=== PATIENT | male | born 1930 | race Caucasian/White ===

== ENCOUNTER → 2016-08-25 | Outpatient (CLI) | payer MEDICARE ==
--- NOTE | 2016-08-25 12:17 | US ---
EXAMINATION TYPE: US venous doppler duplex LE RT DATE OF EXAM: 08/25/2016 12:02 PM COMPARISON: NONE CLINICAL HISTORY: 86-year-old male M79.661 PAIN IN LOWER LIMB,R22.41 SWELLING. Pain and leg swelling, ongoing swelling, already on blood thinners for atrial fibrillation, no history of DVT. SIDE PERFORMED: Right TECHNIQUE: The lower extremity deep venous system is examined utilizing real time linear array sonog dusty with graded compression, doppler sonography and color-flow sonography. FINDINGS: VESSELS IMAGED: External Iliac Vein (EIV) Common Femoral Vein Deep Femoral Vein Greater Saphenous Vein * Femoral Vein Popliteal Vein Small Saphenous Vein * Proximal Calf Veins Posterior tibial veins (* superficial vessels) Right Leg: Appears negative for DVT *tech impression to Lilly at office @ 1205 IMPRESSION: No evidence for DVT within the right lower extremity.
== END | disposition home or self-care (01) ==
LOC: RADUSWWP 11:41
PROVIDERS: ATTEND Internal Medicine
DX: M79.661 Pain in right lower leg (principal); R22.41 Localized swelling, mass and lump, right lower limb

== ENCOUNTER 2018-02-10 07:49 | Inpatient (IN) | payer MEDICARE ==
[2018-02-10] MEDS ORDERED: ASPIRIN 81 MG PO STA (08:09)
[2018-02-10] MEDS ORDERED: NITROGLYCERIN OINT 1 INCH/GM PACKET TOPICAL STA (08:09)
--- NOTE | 2018-02-10 08:13 | ED ---
General Adult HPI - General Chief complaint: Chest Pain Stated complaint: chest pain Time Seen by Provider: 02/10/18 07:59 Source: patient, family, RN notes reviewed Mode of arrival: wheelchair Limitations: no limitations - History of Present Illness Initial comments: Patient is a pleasant 87-year-old male presenting to the emergency department with family with chest discomfort complaints. Patient did have an episode 4 days ago. Patient did have symptoms twice the middle the night. Patient had chest discomfort associated with belching. No associated dyspnea. Patient does have a history of similar symptoms twice previously associated with cardiac problems. Once patient needed stent placement and another time patient needed bypass. Patient is extremely hard of hearing and is a poor historian. - Related Data Home Medications Medication Instructions Recorded Confirmed Albuterol Nebulized [Ventolin 1 vial INHALATION RT-Q6H PRN 02/10/18 02/10/18 Nebulized] Allopurinol [Zyloprim] 300 mg PO Q48H 02/10/18 02/10/18 Atorvastatin [Lipitor] 40 mg PO DAILY 02/10/18 02/10/18 Cholecalciferol (Vitamin D3) 2,000 unit PO DAILY 02/10/18 02/10/18 [Vitamin D3] Clopidogrel [Plavix] 75 mg PO DAILY 02/10/18 02/10/18 Furosemide [Lasix] 20 mg PO Q48H 02/10/18 02/10/18 Levothyroxine Sodium [Synthroid] 25 mcg PO DAILY 02/10/18 02/10/18 Multivitamin,Therapeutic [Thera] 1 tab PO DAILY 02/10/18 02/10/18 glipiZIDE [Glucotrol] 5 mg PO TID 02/10/18 02/10/18 predniSONE 5 mg PO DAILY 02/10/18 02/10/18 Allergies Allergy/AdvReac Type Severity Reaction Status Date / Time shellfish derived [Shrimp] AdvReac Nausea & Verified 02/10/18 08:25 Vomiting Review of Systems ROS Statement: Those systems with pertinent positive or pertinent negative responses have been documented in the HPI. ROS Other: All systems not noted in ROS Statement are negative. Constitutional: Denies: fever Eyes: Denies: eye pain ENT: Denies: ear pain Respiratory: Denies: dyspnea Cardiovascular: Reports: chest pain Endocrine: Denies: fatigue Gastrointestinal: Denies: vomiting Genitourinary: Denies: dysuria Musculoskeletal: Denies: back pain Skin: Denies: rash Neurological: Denies: weakness Past Medical History Past Medical History: Diabetes Mellitus, Hypertension Additional Past Medical History / Comment(s): type 2 DM, cardiac issues, gout, 3rd stage renal failure, pancreatitis History of Any Multi-Drug Resistant Organisms: None Reported Past Surgical History: Cholecystectomy, Coronary Bypass/CABG Additional Past Surgical History / Comment(s): 2008 coronary bypass Past Psychological History: No Psychological Hx Reported Smoking Status: Never smoker Past Alcohol Use History: Rare Past Drug Use History: None Reported General Exam Limitations: no limitations General appearance: alert, in no apparent distress Head exam: Present: atraumatic Eye exam: Present: normal appearance Neck exam: Present: normal inspection Respiratory exam: Present: normal lung sounds bilaterally. Absent: chest wall tenderness Cardiovascular Exam: Present: regular rate, normal rhythm Expanded Peripheral pulses: 2+: Radial (R), Radial (L), Posterior Tibialis (R), Posterior Tibialis (L) GI/Abdominal exam: Present: soft. Absent: tenderness Extremities exam: Present: normal inspection. Absent: pedal edema, calf tenderness Neurological exam: Present: alert Psychiatric exam: Present: normal affect, normal mood Skin exam: Present: normal color Course Vital Signs 02/10/18 07:52 Temperature 97.4 F L Pulse Rate 86 Respiratory 18 Rate Blood Pressure 151/75 O2 Sat by Pulse 95 Oximetry EKG Findings - EKG Comments: EKG Findings:: Normal sinus rhythm 77. For screening AV block ID of 204. QRS 88. QT 380. QTC 43. Normal axis. Normal QRS. No acute ST change. Medical Decision Making - Medical Decision Making Patient reevaluated and resting comfortably in bed. Patient and family updated. Case discussed in detail with Dr. Cruz, who will admit covering for Dr. Martinez. - Lab Data Result diagrams: 02/10/18 08:35 02/10/18 08:35 Lab Results 02/10/18 02/10/18 02/10/18 Range/Units 08:35 08:35 08:35 WBC 8.5 (3.8-10.6) k/uL RBC 4.26 L (4.30-5.90) m/uL Hgb 13.3 (13.0-17.5) gm/dL Hct 40.1 (39.0-53.0) % MCV 94.2 (80.0-100.0) fL MCH 31.1 (25.0-35.0) pg MCHC 33.1 (31.0-37.0) g/dL RDW 14.9 (11.5-15.5) % Plt Count 211 (150-450) k/uL Neutrophils % 84 % Lymphocytes % 9 % Monocytes % 6 % Eosinophils % 0 % Basophils % 0 % Neutrophils # 7.1 (1.3-7.7) k/uL Lymphocytes # 0.7 L (1.0-4.8) k/uL Monocytes # 0.5 (0-1.0) k/uL Eosinophils # 0.0 (0-0.7) k/uL Basophils # 0.0 (0-0.2) k/uL PT (9.0-12.0) sec INR (<1.2) APTT (22.0-30.0) sec Sodium 141 (137-145) mmol/L Potassium 4.8 (3.5-5.1) mmol/L Chloride 111 H (98-107) mmol/L Carbon Dioxide 22 (22-30) mmol/L Anion Gap 8 mmol/L BUN 60 H (9-20) mg/dL Creatinine 2.82 H (0.66-1.25) mg/dL Est GFR (CKD-EPI)AfAm 22 (>60 ml/min/1.73 sqM) Est GFR (CKD-EPI)NonAf 19 (>60 ml/min/1.73 sqM) Glucose 138 H (74-99) mg/dL Calcium 9.4 (8.4-10.2) mg/dL Magnesium 2.1 (1.6-2.3) mg/dL Total Bilirubin 0.7 (0.2-1.3) mg/dL AST 17 (17-59) U/L ALT 18 L (21-72) U/L Alkaline Phosphatase 58 (38-126) U/L Total Creatine Kinase 39 L (55-170) U/L CK-MB (CK-2) 1.6 (0.0-2.4) ng/mL CK-MB (CK-2) Rel Index 4.1 Troponin I 0.029 (0.000-0.034) ng/mL Total Protein 6.4 (6.3-8.2) g/dL Albumin 3.7 (3.5-5.0) g/dL 02/10/18 Range/Units 08:35 WBC (3.8-10.6) k/uL RBC (4.30-5.90) m/uL Hgb (13.0-17.5) gm/dL Hct (39.0-53.0) % MCV (80.0-100.0) fL MCH (25.0-35.0) pg MCHC (31.0-37.0) g/dL RDW (11.5-15.5) % Plt Count (150-450) k/uL Neutrophils % % Lymphocytes % % Monocytes % % Eosinophils % % Basophils % % Neutrophils # (1.3-7.7) k/uL Lymphocytes # (1.0-4.8) k/uL Monocytes # (0-1.0) k/uL Eosinophils # (0-0.7) k/uL Basophils # (0-0.2) k/uL PT 10.4 (9.0-12.0) sec INR 1.1 (<1.2) APTT 22.4 (22.0-30.0) sec Sodium (137-145) mmol/L Potassium (3.5-5.1) mmol/L Chloride (98-107) mmol/L Carbon Dioxide (22-30) mmol/L Anion Gap mmol/L BUN (9-20) mg/dL Creatinine (0.66-1.25) mg/dL Est GFR (CKD-EPI)AfAm (>60 ml/min/1.73 sqM) Est GFR (CKD-EPI)NonAf (>60 ml/min/1.73 sqM) Glucose (74-99) mg/dL Calcium (8.4-10.2) mg/dL Magnesium (1.6-2.3) mg/dL Total Bilirubin (0.2-1.3) mg/dL AST (17-59) U/L ALT (21-72) U/L Alkaline Phosphatase (38-126) U/L Total Creatine Kinase (55-170) U/L CK-MB (CK-2) (0.0-2.4) ng/mL CK-MB (CK-2) Rel Index Troponin I (0.000-0.034) ng/mL Total Protein (6.3-8.2) g/dL Albumin (3.5-5.0) g/dL - Radiology Data Radiology results: image reviewed (Chest x-ray shows possible atelectasis or infiltrate lingular region. Possible fibrosis. Mild cardiomegaly.) Disposition Clinical Impression: Chest pain Disposition: ADMITTED IP TO THIS HOSP Is patient prescribed a controlled substance at d/c from ED?: No Referrals: Nico Martinez MD [Primary Care Provider] - 1-2 days Decision Time: 09:37
[2018-02-10 08:51] LABS: Basophils % (A) 0 %; Eosinophils % (A) 0 %; HCT 40.1 % (39.0-53.0); HGB 13.3 gm/dL (13.0-17.5); Lymphocytes # (A) 0.7 k/uL (1.0-4.8); Lymphocytes % (A) 9 %; MCH 31.1 pg (25.0-35.0); MCHC 33.1 g/dL (31.0-37.0); MCV 94.2 fL (80.0-100.0); Mean Platelet Volume 7.9; Monocytes # (A) 0.5 k/uL (0-1.0); Monocytes % (A) 6 %; Neutrophils # (A) 7.1 k/uL (1.3-7.7); Neutrophils % (A) 84 %; Platelet Count 211 k/uL (150-450); RBC 4.26 m/uL (4.30-5.90); RDW 14.9 % (11.5-15.5); WBC 8.5 k/uL (3.8-10.6)
[2018-02-10 09:01] LABS: INR 1.1 (<1.2); Partial Thromboplastin Time 22.4 sec (22.0-30.0); Prothrombin Time 10.4 sec (9.0-12.0)
[2018-02-10 09:14] LABS: Albumin 3.7 g/dL (3.5-5.0); Calcium 9.4 mg/dL (8.4-10.2); Magnesium 2.1 mg/dL (1.6-2.3); Potassium 4.8 mmol/L (3.5-5.1); Total Bilirubin 0.7 mg/dL (0.2-1.3); Total Protein 6.4 g/dL (6.3-8.2)
--- NOTE | 2018-02-10 09:14 | XR ---
EXAMINATION TYPE: XR chest 2V DATE OF EXAM: 02/10/2018 COMPARISON: None INDICATION: Chest pain, reflux and gas TECHNIQUE: Frontal and lateral views of the chest are obtained. FINDINGS: The heart size is mildly prominent. The pulmonary vasculature is normal. There is a left lower lobe infiltrate. There is blunting the left costophrenic angle. Increased lung markings are in the periphery of the bilateral lungs. IMPRESSION: 1. Clinical correlation recommended for lingular infiltrate. Pneumonia and atelectasis could be consi dered. 2. There may be some superimposed pulmonary fibrosis. 3. Mild cardiomegaly 4. Follow-up is recommended.
[2018-02-10 09:25] LABS: Creatine Kinase MB 1.6 ng/mL (0.0-2.4); Troponin I 0.029 ng/mL (0.000-0.034)
[2018-02-10] MEDS ORDERED: NITROGLYCERIN SL TABS 0.4 MG TAB SUBLINGUAL PRN (09:39)
[2018-02-10] MEDS ORDERED: ALBUTEROL NEBULIZED 2.5 MG/3 ML INHALATION PRN (10:55)
--- NOTE | 2018-02-10 11:12 | P.HPIM ---
History of Present Illness H&P Date: 02/10/18 Chief Complaint: Chest Pain This is an 87-year-old male patient of Dr. Martinez. Patient presented to the emergency room with complaints of intermittent chest pain. Patient says he woke up in the middle of night around 4:00am with sharp pain to his chest. Patient also states he had similar episode 4 days prior. Patient is extremely hard of hearing and poor historian. Past medical history includes diabetes mellitus, essential hypertension, cholecystectomy, coronary artery bypass graft in 2008, stage 3 renal failure, pancreatitis and cardiac stents. Initial troponin 0.02. Chest x-ray completed showing clinical correlation recommended for a lingular infiltrate. Pneumonia and atelectasis could be considered. There may be some superimposed pulmonary fibrosis. Mild cardiomegaly. Follow- up is recommended. EKG completed a normal sinus rhythm. Patient's creatinine 2.82 and bun 60. Patient states he does follow with nephrology services. Patient denies chest pain or shortness of breath. Patient denies nausea vomiting or diarrhea. Patient denies any urinary burning or frequency. Patient states he follows with Dr. Knutson in the office. Cardiology services have been consulted. 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, pancreatitis History of Any Multi-Drug Resistant Organisms: None Reported Past Surgical History: Cholecystectomy, Coronary Bypass/CABG Additional Past Surgical History / Comment(s): 2008 coronary bypass Past Psychological History: No Psychological Hx Reported Smoking Status: Never smoker Past Alcohol Use History: Rare Past Drug Use History: None Reported Medications and Allergies Home Medications Medication Instructions Recorded Confirmed Type Albuterol Nebulized [Ventolin 1 vial INHALATION RT-Q6H PRN 02/10/18 02/10/18 History Nebulized] Allopurinol [Zyloprim] 300 mg PO Q48H 02/10/18 02/10/18 History Atorvastatin [Lipitor] 40 mg PO DAILY 02/10/18 02/10/18 History Cholecalciferol (Vitamin D3) 2,000 unit PO DAILY 02/10/18 02/10/18 History [Vitamin D3] Clopidogrel [Plavix] 75 mg PO DAILY 02/10/18 02/10/18 History Furosemide [Lasix] 20 mg PO Q48H 02/10/18 02/10/18 History Levothyroxine Sodium [Synthroid] 25 mcg PO DAILY 02/10/18 02/10/18 History Multivitamin,Therapeutic [Thera] 1 tab PO DAILY 02/10/18 02/10/18 History glipiZIDE [Glucotrol] 5 mg PO TID 02/10/18 02/10/18 History predniSONE 5 mg PO DAILY 02/10/18 02/10/18 History Allergies Allergy/AdvReac Type Severity Reaction Status Date / Time shellfish derived [Shrimp] AdvReac Nausea & Verified 02/10/18 08:25 Vomiting Physical Exam Vitals: Vital Signs Temp Pulse Pulse Resp BP BP Pulse Ox 02/10/18 10:32 97.4 F L 73 18 135/71 95 02/10/18 09:30 72 16 142/74 98 02/10/18 07:52 97.4 F L 86 18 151/75 95 Intake and Output 02/09/18 02/10/18 02/10/18 22:59 06:59 14:59 Other: Weight 63 kg Head normocephalic Neck supple Lungs clear to auscultation bilaterally no wheezing or crackles Heart regular rate and rhythm S1-S2, no rub or gallop Abdomen is soft nontender nondistended positive bowel sounds no hepatosplenomegaly Extremities no edema Neuro alert and orientated to 3. Patient is extremely hard of hearing Results CBC & Chem 7: 02/10/18 08:35 02/10/18 08:35 Labs: Abnormal Lab Results - Last 24 Hours (Table) 02/10/18 02/10/18 02/10/18 Range/Units 08:35 08:35 08:35 RBC 4.26 L (4.30-5.90) m/uL Lymphocytes # 0.7 L (1.0-4.8) k/uL Chloride 111 H (98-107) mmol/L BUN 60 H (9-20) mg/dL Creatinine 2.82 H (0.66-1.25) mg/dL Glucose 138 H (74-99) mg/dL ALT 18 L (21-72) U/L Total Creatine Kinase 39 L (55-170) U/L Assessment and Plan Assessment: 1. Chest pain. EKG showing normal sinus rhythm. Chest x-ray completed showing clinical correlation recommended for Lingular infiltrate. Pneumonia and atelectasis could be considered. There may be some superimposed pulmonary fibrosis. Mild cardiomegaly. Follow-up is recommended. Initial troponin initial troponin 0.029. Cardiac enzymes have been ordered. Cardiology services following. 2-D echo ordered 2. Acute on chronic kidney disease stage III. Creatinine 2.82 and bun 60 this does appear higher than previous levels. Patient states he does follow with nephrology services. Lasix will be held at this time 3. History of coronary artery bypass graft surgery in 2008. Patient maintained on Plavix 4. History of diabetes mellitus type 2. Patient currently on glipizide 5. History of cholecystectomy 6. History of essential hypertension I performed an examination of the patient and discussed their management with the Nurse Practitioner. I have reviewed the Nurse Practitioner's notes and agree with the documented findings and plan of care Time with Patient: Greater than 30 (Greater than 60% of the total time spent in counseling and coordination of care. I performed an examination of the patient and discussed their management with the Nurse Practitioner. I have reviewed the Nurse Practitioner's notes and agree with the documented findings and plan of care)
[2018-02-10] MEDS ORDERED: HEPARIN SODIUM,PORCINE 5,000 UNIT/ML 1 ML VIAL IV PRN (12:09)
[2018-02-10] MEDS ORDERED: HEPARIN SODIUM,PORCINE 5,000 UNIT/ML 1 ML VIAL IV ONE (12:09)
--- NOTE | 2018-02-10 12:09 | ECHOF ---
Referral Reason: MEASUREMENTS -------- HEIGHT: 172.7 cm WEIGHT: 62.6 kg BP: IVSd: 1.4 cm (0.6 - 1.1) LVIDd: 2.8 cm (3.9 - 5.3) LVPWd: 1.4 cm (0.6 - 1.1) IVSs: 2.0 cm LVIDs: 1.5 cm LVPWs: 0.8 cm Ao Diam: 3.3 cm (2.0 - 3.7) AV Cusp: 1.5 cm (1.5 - 2.6) LA Diam: 3.9 cm (2.7 - 3.8) MV EXCURSION: 15.965 mm (> 18.000) MV EF SLOPE: 57 mm/s (70 - 150) EPSS: 0.9 cm MV E Nathan: 0.45 m/s MV DecT: 391 ms MV A Nathan: 1.08 m/s MV E/A Ratio: 0.42 RAP: 5.00 mmHg RVSP: 10.05 mmHg FINDINGS -------- Sinus rhythm. This was a technically adequate study. The left ventricular size is normal. There is moderate concentric left ventricular hypertrophy. O verall left ventricular systolic function is low-normal with, an EF between 50 - 55 %. The right ventricle is normal in size. The left atrial size is normal. The right atrial size is normal. There is mild aortic valve sclerosis. There is mild aortic regurgitation. Mild mitral annular calcification present. Mild mitral regurgitation is present. Mild tricuspid regurgitation present. There is no evidence of pulmonary hypertension. The right v entricular systolic pressure, as measured by Doppler, is 10.05mmHg. There is no pulmonic regurgitation present. The aortic root size is normal. There is no pericardial effusion. CONCLUSIONS -------- 1. The left ventricular size is normal. 2. There is moderate concentric left ventricular hypertrophy. 3. Overall left ventricular systolic function is low-normal with, an EF between 50 - 55 %. 4. The right ventricle is normal in size. 5. The left atrial size is normal. 6. The right atrial size is normal. 7. There is mild aortic valve sclerosis. 8. There is mild aortic regurgitation. 9. Mild mitral annular calcification present. 10. Mild mitral regurgitation is present. 11. Mild tricuspid regurgitation present. 12. There is no evidence of pulmonary hypertension. 13. The right ventricular systolic pressure, as measured by Doppler, is 10.05mmHg. 14. There is no pulmonic regurgitation present. 15. The aortic root size is normal. 16. There is no pericardial effusion. SEARCH ENGINE OPTIMIZATION ANALYST: Regi Sanchez RDCS
--- NOTE | 2018-02-10 12:29 | P.CRDCN ---
History of Present Illness History of present illness: This is an 87-year-old male past medical history significant for coronary artery disease status post bypass grafting, hypertension, dyslipidemia , diabetes mellitus and chronic kidney disease. He follows with Dr. Knutson in the office. We have been asked to see him in consultation for chest pain. He states on Wednesday night he started feeling bubble gas sensation in the midsternal region and began belching uncontrollably. This persisted for approximately 45 minutes and was associated with tightness in his chest. He was unable to drive himself home and had to be driven home by a friend. The symptoms ultimately went away on neuromas is and he went to sleep that night uneventfully. He woke up this morning again with the same symptoms tightness in the midsternal region with a gas bubble sensation and frequent belching. His symptoms persisted for approximately 60 minutes until he decided to come to the hospital for evaluation. He states he has undergone angioplasty as well as bypass surgery in the past. Every time he has had an issue with a new blockage in his heart has similar symptoms of belching and chest tightness. His symptoms have completely resolved and he is currently chest pain-free. He denies associated shortness of breath, palpitations, dizziness, nausea, vomiting or diaphoresis. 17 does have chronic exertional dyspnea secondary to COPD, his symptoms have not been any different in the last few days and his baseline. EKG reveals sinus mechanism with no acute ST or T wave abnormalities noted. Chest x-ray reveals possible lingular infiltrate, pneumonia or atelectasis should be considered with some superimposed pulmonary fibrosis as well as mild cardiomegaly. No evidence of heart failure. Laboratory data reviewed, WBC 8.5, hemoglobin 13.3, platelets 211, sodium 141, potassium 4.8, creatinine 2.82, magnesium 2.1, troponin is 0.029. Current cardiac medications include atorvastatin 40 mg daily, Lasix 20 mg every other day, Plavix 75 mg daily which is prescribed by neurology secondary to CVA. He also takes prednisone, glipizide, Synthroid and allopurinol. Stent proximal RCA 2007 with subsequent 2 vessel bypass grafting with an SVG to the OM and SVG to the PDA 2008. Most recent echocardiogram performed in the office in 2013 reveals preserved left ventricular systolic function with ejection fraction 55%, mild MR and mild TR noted. Most recent stress test performed in the office 2012 Sallie scan with no evidence of any stress-induced ischemia. At the time of my exam: CONSTITUTIONAL: Denies fever. Denies chills. EYES: Denies blurred vision. Denies vision changes. Denies eye pain. EARS, NOSE, MOUTH & THROAT: Denies headache. Denies sore throat. Denies ear pain. CARDIOVASCULAR: Denies chest pain. Denies shortness of breath. Denies orthopnea. Denies PND. Denies palpitations. RESPIRATORY: Denies cough. GASTROINTESTINAL: Denies abdominal pain. Denies diarrhea. Denies constipation. Denies nausea. Denies vomiting. MUSCULOSKELETAL: Denies myalgias. INTEGUMENTARY: Denies pruitis. Denies rash. NEUROLOGIC: Denies numbness. Denies tingling. Denies weakness. PSYCHIATRIC: Denies anxiety. Denies depression. ENDOCRINE: Denies fatigue. Denies weight change. Denies polydipsia. Denies polyurina. GENITOURINARY: Denies burning, hematuria or urgency with micturation. HEMATOLOGIC: Denies history of anemia. Denies bleeding. Blood pressure 135/71 heart rate 73 afebrile and maintaining oxygen saturation on room air. GENERAL: This is a 87-year-old male in no apparent distress at the time of my examination. Extremely hard of hearing. HEENT: Head is atraumatic, normocephalic. Pupils are equal, round. Sclerae anicteric. Conjunctivae are clear. Mucous membranes of the mouth are moist. Neck is supple. There is no jugular venous distention. No carotid bruit is heard. LUNGS: Clear to auscultation no wheezes, rales or rhonchi. No chest wall tenderness is noted on palpation or with deep breathing. HEART: Regular rate and rhythm without murmurs, rubs or gallops. S1 and S2 heard. ABDOMEN: Soft, nontender. Bowel sounds are heard. No organomegaly noted. EXTREMITIES: No evidence of peripheral edema and no calf tenderness noted. VASCULAR: Radial and dorsalis pedis pulses palpated, no evidence of clubbing. NEUROLOGIC: Patient is awake, alert and oriented x3. ASSESSMENT Non ST elevated myocardial infarction Unstable angina History of coronary artery disease s/p 2-vessel bypass grafting 2008 Chronic kidney disease, GFR 19 Hypertension, controlled Dyslipidemia, Diabetes mellitus COPD with former nicotine dependence, quit in 1969 History of gout PLAN Initiate heparin infusion per protocol. Obtain 2-D echocardiogram and Doppler study to assess cardiac structure and function. Continue with Nitropaste. Transfer the patient to cardiac selective care. Maximize medical therapy. Check lipid panel. Will discuss with his primary children's minister Dr. Knutson and further recommendations to follow. Thank you kindly for this consultation. Nurse Practitioner note has been reviewed, I agree with a documented findings and plan of care. Patient was seen and examined. Past Medical History Past Medical History: Atrial Fibrillation, Coronary Artery Disease (CAD), COPD, Diabetes Mellitus, Hyperlipidemia, Hypertension, Liver Disease, Renal Disease, Thyroid Disorder Additional Past Medical History / Comment(s): NIDDM type II, gout in great toes , hiatal hernia, benign colon polyps, hemorrhoids, renal disease stage III, paroxysmal afib, 2008 pancreatitis, hypothyroid, bilateral BEAVER wears hearing aides, schrapnel R thigh/femur. History of Any Multi-Drug Resistant Organisms: None Reported Past Surgical History: Cholecystectomy, Coronary Bypass/CABG Additional Past Surgical History / Comment(s): 2008 coronary bypass-2 vessel, PCI with stents-, ERCP, colonoscopy with polypectomy, umbilical hernia repair, bilateral cataract removals with lens implants. Past Anesthesia/Blood Transfusion Reactions: No Reported Reaction Smoking Status: Former smoker - Past Family History Mother Family Medical History: Cancer Additional Family Medical History / Comment(s): Mother had multiple myeloma. Brother(s) Family Medical History: Cancer Additional Family Medical History / Comment(s): Brother had lung cancer. Medications and Allergies Home Medications Medication Instructions Recorded Confirmed Type Albuterol Nebulized [Ventolin 1 vial INHALATION RT-Q6H PRN 02/10/18 02/10/18 History Nebulized] Allopurinol [Zyloprim] 300 mg PO Q48H 02/10/18 02/10/18 History Atorvastatin [Lipitor] 40 mg PO DAILY 02/10/18 02/10/18 History Cholecalciferol (Vitamin D3) 2,000 unit PO DAILY 02/10/18 02/10/18 History [Vitamin D3] Clopidogrel [Plavix] 75 mg PO DAILY 02/10/18 02/10/18 History Furosemide [Lasix] 20 mg PO Q48H 02/10/18 02/10/18 History Levothyroxine Sodium [Synthroid] 25 mcg PO DAILY 02/10/18 02/10/18 History Multivitamin,Therapeutic [Thera] 1 tab PO DAILY 02/10/18 02/10/18 History glipiZIDE [Glucotrol] 5 mg PO TID 02/10/18 02/10/18 History predniSONE 5 mg PO DAILY 02/10/18 02/10/18 History Allergies Allergy/AdvReac Type Severity Reaction Status Date / Time shellfish derived [Shrimp] AdvReac Nausea & Verified 02/10/18 08:25 Vomiting Physical Exam Vitals: Vital Signs Temp Pulse Pulse Resp BP BP Pulse Ox 02/10/18 10:58 73 18 02/10/18 10:32 97.4 F L 73 18 135/71 95 02/10/18 09:30 72 16 142/74 98 02/10/18 07:52 97.4 F L 86 18 151/75 95 Intake and Output 02/09/18 02/10/18 02/10/18 22:59 06:59 14:59 Other: Voiding Method Toilet Weight 63 kg Results 02/10/18 08:35 02/10/18 08:35 Cardiac Enzymes 02/10/18 02/10/18 Range/Units 08:35 08:35 AST 17 (17-59) U/L CK-MB (CK-2) 1.6 (0.0-2.4) ng/mL Troponin I 0.029 (0.000-0.034) ng/mL Coagulation 02/10/18 Range/Units 08:35 PT 10.4 (9.0-12.0) sec APTT 22.4 (22.0-30.0) sec CBC 02/10/18 Range/Units 08:35 WBC 8.5 (3.8-10.6) k/uL RBC 4.26 L (4.30-5.90) m/uL Hgb 13.3 (13.0-17.5) gm/dL Hct 40.1 (39.0-53.0) % Plt Count 211 (150-450) k/uL Comprehensive Metabolic Panel 02/10/18 Range/Units 08:35 Sodium 141 (137-145) mmol/L Potassium 4.8 (3.5-5.1) mmol/L Chloride 111 H (98-107) mmol/L Carbon Dioxide 22 (22-30) mmol/L BUN 60 H (9-20) mg/dL Creatinine 2.82 H (0.66-1.25) mg/dL Glucose 138 H (74-99) mg/dL Calcium 9.4 (8.4-10.2) mg/dL AST 17 (17-59) U/L ALT 18 L (21-72) U/L Alkaline Phosphatase 58 (38-126) U/L Total Protein 6.4 (6.3-8.2) g/dL Albumin 3.7 (3.5-5.0) g/dL Current Medications Generic Name Dose Route Start Last Admin Trade Name Freq PRN Reason Stop Dose Admin Albuterol Sulfate 2.5 mg 02/10/18 10:55 Ventolin Nebulized INHALATION RT-Q6H PRN Shortness Of Breath Allopurinol 300 mg 02/11/18 09:00 Zyloprim PO Q48H [facility] Aspirin 325 mg 02/11/18 09:00 Aspirin PO DAILY [facility] Atorvastatin Calcium 40 mg 02/11/18 09:00 Lipitor PO DAILY [facility] Cholecalciferol 2,000 unit 02/11/18 09:00 Vitamin D3 PO DAILY [facility] Clopidogrel Bisulfate 75 mg 02/11/18 09:00 Plavix PO DAILY [facility] Glipizide 5 mg 02/10/18 16:00 Glucotrol PO TID [facility] Levothyroxine Sodium 25 mcg 02/11/18 06:30 Synthroid PO 0630 [facility] Multivitamins 1 each 02/11/18 12:00 Theragran PO 1200 [facility] Nitroglycerin 1 inch 02/10/18 12:00 Nitro-Bid Oint TOPICAL Q6HR [facility] Nitroglycerin 0.4 mg 02/10/18 09:39 Nitrostat SUBLINGUAL Q5M PRN Chest Pain Prednisone 5 mg 02/11/18 09:00 PO DAILY [facility] Sodium Chloride 10 ml 02/10/18 21:00 Saline Flush IV BID [facility] Intake and Output 02/09/18 02/10/18 02/10/18 22:59 06:59 14:59 Other: Voiding Method Toilet Weight 63 kg Patient Weight 02/11/18 06:59 Weight 63 kg 02/10/18 08:35 02/10/18 08:35
[2018-02-10] MEDS: HEPARIN SOD,PORK IN 0.45% NACL 25,000 UNIT in 0.45% NACL 1 500ML.BAG IV SCH (12:43)
[2018-02-10] MEDS: NITROGLYCERIN OINT 1 INCH/GM PACKET TOPICAL SCH ×3 (12:50→23:24)
[2018-02-10 16:01] LABS: Albumin 3.3 g/dL (3.5-5.0); Calcium 8.9 mg/dL (8.4-10.2); Potassium 4.1 mmol/L (3.5-5.1); Total Bilirubin 0.4 mg/dL (0.2-1.3); Total Protein 5.8 g/dL (6.3-8.2)
[2018-02-10 16:09] LABS: Creatine Kinase MB 1.3 ng/mL (0.0-2.4)
[2018-02-10 16:10] LABS: Troponin I 0.036 ng/mL (0.000-0.034)
[2018-02-10 16:58] LABS: Glucose,Whole Blood 121 mg/dL (75-99)
[2018-02-10] MEDS: glipiZIDE 5 MG TAB PO SCH ×3 (17:25→21:49)
[2018-02-10 18:45] LABS: Appearance,Urine Clear (Clear); Bilirubin,Urine Negative (Negative); Blood,Urine Negative (Negative); Color,Urine Yellow; Glucose,Urine (UA) Negative (Negative); Ketones,Urine Negative (Negative); Leukocyte Esterase,Urine Negative (Negative); Nitrite,Urine Negative (Negative); PH, Urine 5.5 (5.0-8.0); Protein,Urine Negative (Negative); Specific Gravity,Urine 1.016 (1.001-1.035); Urobilinogen,Urine <2.0 mg/dL (<2.0)
--- NOTE | 2018-02-10 20:11 | CONS ---
CONSULTATION REASON FOR CONSULT: Renal failure. HISTORY OF PRESENT ILLNESS: The patient is an 87-year-old male who has a history of chronic kidney disease, NKF stage IIIB to IV, with previous creatinine of 2.7 on 12/24/2017 and estimated GFR 22.4 mL/minute. Etiology is nephrosclerosis. Patient was admitted to the hospital with complaints of chest pains. He also felt mildly short of breath. He states his chest pain is currently resolved. Serum creatinine was 2.8 mg/dL yesterday and today it is at 2.63. Patient has had good urine output. He does have a history of BPH. PAST MEDICAL HISTORY: 1. Type 2 diabetes. 2. Hypertension. 3. Vitamin D deficiency. 4. CKD mineral bone disorder. 5. Gout. 6. CKD stage III. 7. Coronary artery disease. 8. History of pancreatitis. PAST SURGICAL HISTORY: 1. Coronary artery bypass surgery. 2. Cholecystectomy. SOCIAL HISTORY: Negative for smoking, drug abuse or alcohol abuse. MEDICATIONS: Medications at home prior to admission included: 1. Zyloprim. 2. Lipitor. 3. Vitamin D3. 4. Plavix. 5. Lasix. 6. Synthroid. 7. Glucotrol. 8. Prednisone. ALLERGIES: Include SHRIMP, which caused nausea and vomiting. REVIEW OF SYSTEMS: As per HPI. Other systems negative. PHYSICAL EXAMINATION: Patient is comfortable, awake. He is not in any acute distress. He is quite hard of hearing. Blood pressure is 135/71, heart rate 73 per minute. Patient is afebrile. EXAMINATION OF THE HEART: S1, S2. EXAMINATION OF LUNGS: Bilateral breath sounds are heard. ABDOMEN: Soft, non-tender. Examination of lower extremities shows no evidence of edema. COBBLER UPPER exam shows patient is moving all 4 extremities. LABS: Labs show sodium 141, potassium 4.1, chloride 111, BUN 60, serum creatinine 2.63, hemoglobin 13.3. I do not have a UA. Troponin was 0.036. ASSESSMENT: 1. Chronic kidney disease, NKF stage IV. Renal function not far from baseline. Etiology is nephrosclerosis. Previous creatinine 2.7 in December of 2017. Continue off of IV fluids for now and continue to encourage increased oral intake. 2. Chest pains, maintained on IV heparin, being followed by Cardiology. Troponin is mildly elevated. 3. Type 2 diabetes. 4. Hypertension with chronic kidney disease. Blood pressure is controlled. 5. Coronary artery disease, status post coronary artery bypass surgery in 2008. PLAN: Continue off of Lasix and IV fluids. Serum creatinine has improved slightly, which is more close to his baseline. Continue to encourage increased oral intake. Repeat labs in a.m. Continue to avoid nephrotoxic agents. Check post-void residual and check urinalysis. Thank you for this consultation. We will continue to follow the patient with you during hospitalization. MMODL / IJN: [id number] /
[2018-02-10 20:33] LABS: Glucose,Whole Blood 78 mg/dL (75-99)
[2018-02-10 21:03] LABS: Creatine Kinase MB 1.5 ng/mL (0.0-2.4); Troponin I 0.032 ng/mL (0.000-0.034)
[2018-02-11 01:48] LABS: Glucose,Whole Blood 59 mg/dL (75-99)
[2018-02-11 01:54] LABS: Appearance,Urine Clear (Clear); Bilirubin,Urine Negative (Negative); Blood,Urine Negative (Negative); Color,Urine Light Yellow; Glucose,Urine (UA) Negative (Negative); Ketones,Urine Negative (Negative); Leukocyte Esterase,Urine Negative (Negative); Nitrite,Urine Negative (Negative); PH, Urine 5.5 (5.0-8.0); Protein,Urine Negative (Negative); Specific Gravity,Urine 1.014 (1.001-1.035); Urobilinogen,Urine <2.0 mg/dL (<2.0)
[2018-02-11 02:15] LABS: Glucose,Whole Blood 141 mg/dL (75-99)
[2018-02-11 03:31] LABS: Basophils % (A) 0 %; Eosinophils # (A) 0.1 k/uL (0-0.7); Eosinophils % (A) 1 %; HCT 37.1 % (39.0-53.0); HGB 11.8 gm/dL (13.0-17.5); Lymphocytes # (A) 0.9 k/uL (1.0-4.8); Lymphocytes % (A) 13 %; MCH 31.1 pg (25.0-35.0); MCHC 31.8 g/dL (31.0-37.0); MCV 97.8 fL (80.0-100.0); Mean Platelet Volume 7.5; Monocytes # (A) 0.7 k/uL (0-1.0); Monocytes % (A) 10 %; Neutrophils # (A) 5.1 k/uL (1.3-7.7); Neutrophils % (A) 73 %; Platelet Count 195 k/uL (150-450); RBC 3.79 m/uL (4.30-5.90); RDW 15.2 % (11.5-15.5); WBC 6.9 k/uL (3.8-10.6)
[2018-02-11 03:42] LABS: Cholesterol 156 mg/dL (<200); HDL Cholesterol 56 mg/dL (40-60); LDL Cholesterol,Calculated 78 mg/dL (0-99); Triglycerides 109 mg/dL (<150)
[2018-02-11 05:23] LABS: Glucose,Whole Blood 121 mg/dL (75-99)
[2018-02-11] MEDS: NITROGLYCERIN OINT 1 INCH/GM PACKET TOPICAL SCH (06:23)
[2018-02-11] MEDS: LEVOTHYROXINE 25 MCG TAB PO SCH (06:23)
[2018-02-11 08:07] LABS: Calcium 8.9 mg/dL (8.4-10.2); Potassium 4.6 mmol/L (3.5-5.1)
--- NOTE | 2018-02-11 08:24 | P.PN ---
Subjective Patient is seen in follow-up for chronic kidney disease. Patient has history of chronic kidney disease stage IIIb/IV secondary to nephrosclerosis. Patient' s creatinine December 2017 was 2.7. It was 1.86 in May 2016. This admission his creatinine was 2.82 and has been gradually improving and is down to 2.4 today. Patient presented with chest pain and dyspnea. Echocardiogram revealed preserved ejection fraction. He did have an episode of chest pain last night which she states lasted about 10 minutes and subsequently resolved. He is maintained on heparin drip. Hemodynamically stable. Good urine output. Oral intake fair. Vital signs are stable. General: The patient appeared well nourished and normally developed. HEENT: Head exam is unremarkable. Neck is without jugular venous distension. LUNGS: Lungs are clear to auscultation and percussion. Breath sounds decreased. HEART: Rate and Rhythm are regular. First and second heart sounds normal. No murmurs, rubs or gallops. ABDOMEN: Abdominal exam reveals normal bowel sounds. Non-tender and non- distended. No evidence of peritonitis. EXTREMITITES: No clubbing, cyanosis, or edema. Objective - Vital Signs Vital signs: Vital Signs Temp 98.6 F 02/11/18 00:00 Pulse 85 02/11/18 04:00 Resp 17 02/11/18 04:00 BP 157/70 02/11/18 04:00 Pulse Ox 96 02/11/18 04:00 Intake & Output 02/10/18 02/11/18 02/11/18 18:59 06:59 18:59 Intake Total 0 911.89 Output Total 400 900 Balance -400 Weight 63 kg 62.6 kg Intake: Intake, IV Titration 211.89 Amount Heparin Sod,Pork in 0.45% 211.89 NaCl 25,000 unit In 0.45 % NaCl 1 500ml.bag @ 12 UNITS/KG/HR 15.12 mls/hr IV .Q24H [facility] Rx#: [id number] Oral 0 700 Output: Urine 400 900 Other: Voiding Method Toilet Toilet - Labs CBC & Chem 7: 02/11/18 03:03 02/11/18 06:44 Labs: Abnormal Lab Results - Last 24 Hours (Table) 02/10/18 02/10/18 02/10/18 Range/Units 08:35 08:35 08:35 RBC 4.26 L (4.30-5.90) m/uL Hgb (13.0-17.5) gm/dL Hct (39.0-53.0) % Lymphocytes # 0.7 L (1.0-4.8) k/uL APTT (22.0-30.0) sec Chloride 111 H (98-107) mmol/L BUN 60 H (9-20) mg/dL Creatinine 2.82 H (0.66-1.25) mg/dL Glucose 138 H (74-99) mg/dL POC Glucose (mg/dL) (75-99) mg/dL ALT 18 L (21-72) U/L Total Creatine Kinase 39 L (55-170) U/L Troponin I (0.000-0.034) ng/mL Total Protein (6.3-8.2) g/dL Albumin (3.5-5.0) g/dL 02/10/18 02/10/18 02/10/18 Range/Units 15:09 15:09 16:57 RBC (4.30-5.90) m/uL Hgb (13.0-17.5) gm/dL Hct (39.0-53.0) % Lymphocytes # (1.0-4.8) k/uL APTT (22.0-30.0) sec Chloride 111 H (98-107) mmol/L BUN 60 H (9-20) mg/dL Creatinine 2.63 H (0.66-1.25) mg/dL Glucose 140 H (74-99) mg/dL POC Glucose (mg/dL) 121 H (75-99) mg/dL ALT 17 L (21-72) U/L Total Creatine Kinase 32 L (55-170) U/L Troponin I 0.036 H* (0.000-0.034) ng/mL Total Protein 5.8 L (6.3-8.2) g/dL Albumin 3.3 L (3.5-5.0) g/dL 02/10/18 02/10/18 02/11/18 Range/Units 19:57 19:57 01:39 RBC (4.30-5.90) m/uL Hgb (13.0-17.5) gm/dL Hct (39.0-53.0) % Lymphocytes # (1.0-4.8) k/uL APTT 87.0 H (22.0-30.0) sec Chloride (98-107) mmol/L BUN (9-20) mg/dL Creatinine (0.66-1.25) mg/dL Glucose (74-99) mg/dL POC Glucose (mg/dL) 59 L (75-99) mg/dL ALT (21-72) U/L Total Creatine Kinase 33 L (55-170) U/L Troponin I (0.000-0.034) ng/mL Total Protein (6.3-8.2) g/dL Albumin (3.5-5.0) g/dL 02/11/18 02/11/18 02/11/18 Range/Units 02:04 03:03 03:03 RBC 3.79 L (4.30-5.90) m/uL Hgb 11.8 L (13.0-17.5) gm/dL Hct 37.1 L (39.0-53.0) % Lymphocytes # 0.9 L (1.0-4.8) k/uL APTT 51.5 H (22.0-30.0) sec Chloride (98-107) mmol/L BUN (9-20) mg/dL Creatinine (0.66-1.25) mg/dL Glucose (74-99) mg/dL POC Glucose (mg/dL) 141 H (75-99) mg/dL ALT (21-72) U/L Total Creatine Kinase (55-170) U/L Troponin I (0.000-0.034) ng/mL Total Protein (6.3-8.2) g/dL Albumin (3.5-5.0) g/dL 02/11/18 02/11/18 Range/Units 05:22 06:44 RBC (4.30-5.90) m/uL Hgb (13.0-17.5) gm/dL Hct (39.0-53.0) % Lymphocytes # (1.0-4.8) k/uL APTT (22.0-30.0) sec Chloride 112 H (98-107) mmol/L BUN 56 H (9-20) mg/dL Creatinine 2.24 H (0.66-1.25) mg/dL Glucose (74-99) mg/dL POC Glucose (mg/dL) 121 H (75-99) mg/dL ALT (21-72) U/L Total Creatine Kinase (55-170) U/L Troponin I (0.000-0.034) ng/mL Total Protein (6.3-8.2) g/dL Albumin (3.5-5.0) g/dL Assessment and Plan Plan: Assessment: 1. Acute kidney injury mostly prerenal secondary to diuresis. Improving. Creatinine down to 2.24 today. Urinalysis benign. 2. Chronic kidney disease stage IIIB/4 secondary to nephrosclerosis. Creatinine in May 2016 was 1.86 and 2.7 in December 2017. 3. Hypertension with chronic kidney disease. Uncontrolled. 4. Chest pain. Rule out acute coronary syndrome. Maintained on IV heparin. Cardiology following. 5. Diabetes mellitus. Plan: Continue to hold diuretics for now. Encourage oral intake. Avoid nephrotoxins. Repeat electrolytes in the morning.
[2018-02-11] MEDS ORDERED: ASPIRIN 325 MG TAB PO SCH (09:00)
--- NOTE | 2018-02-11 09:33 | XR ---
EXAMINATION TYPE: XR chest 2V DATE OF EXAM: 02/11/2018 COMPARISON: 02/10/2018 HISTORY: Shortness of breath TECHNIQUE: Frontal and lateral views of the chest are obtained. FINDINGS: Scattered senescent parenchymal changes noted. Hyperinflation compatible with COPD. There is evidence of pulmonary fibrosis. Basilar patchy densities unchanged. Heart size is stable. Mediastinal structures are stable and grossly unremarkable. No evidence for hilar prominence. Degenerative changes dorsal spine. IMPRESSION: 1. Stable chest.
[2018-02-11] MEDS: ASPIRIN 81 MG PO SCH (10:31)
[2018-02-11] MEDS: ALLOPURINOL 300 MG TAB PO SCH (10:31)
[2018-02-11] MEDS: CLOPIDOGREL 75 MG TAB PO SCH (10:32)
[2018-02-11] MEDS: CHOLECALCIFEROL 1,000 UNIT TAB PO SCH (10:32)
[2018-02-11] MEDS: ATORVASTATIN 40 MG TAB PO SCH (10:32)
[2018-02-11] MEDS: glipiZIDE 5 MG TAB PO SCH ×3 (10:32→22:10)
[2018-02-11] MEDS: MULTIVITAMINS, THERA 1 EACH TAB PO SCH (10:33)
--- NOTE | 2018-02-11 10:38 | PN ---
PROGRESS NOTE Mr. Nesbitt is an 87-year-old male with known history of coronary artery disease, status post coronary artery bypass grafting in 2009, history of chronic kidney disease stage IV, history of hyperlipidemia, who presented with symptoms of belching and chest discomfort. He had on his initial lab test, the troponin 0.036 and subsequently went back to 0.02. He had an episode of discomfort yesterday at night with belching. He has no change in his breathing. He has no dizziness or palpitation. He has no syncope. No clear PND or orthopnea. No significant peripheral edema. MEDICATION: At this time include IV heparin, nitroglycerin paste, aspirin once a day, Plavix 75 mg daily, Lipitor 40 mg daily, glipizide 5 mg 3 times a day, levothyroxine, and prednisone 5 mg daily. PHYSICAL EXAMINATION: Blood pressure 146/60 with a heart rate in the 70s. LUNGS: Clear. HEART: Regular rate and rhythm. S1, S2. No S3 with systolic murmur, no diastolic murmur, no rub. ABDOMEN: Soft, nontender. Positive bowel sounds, no organomegaly. EXTREMITIES: No edema. LAB DATA: Revealed a BUN and creatinine of 56 and 2.24, potassium 4.6, cholesterol 156, LDL of 78, hemoglobin of 11.8. His echocardiogram showed an ejection fraction of of 50% to 55% with mild aortic, mitral and tricuspid regurgitation. IMPRESSION: 1. Symptoms of chest discomfort with no evidence of acute myocardial infarction. The discomfort could be angina related. 2. Belching, rule out gastrointestinal origin. 3. Status post coronory artery bypass grafting done in 2008. 4. Stage IV chronic kidney disease. 5. Hypertension. 6. Hyperlipidemia. 7. Diabetes mellitus. RECOMMENDATION: I had a long discussion with the patient and his family regarding the options. I have discussed with him the conservative versus aggressive treatment. He is in favor of conservative treatment especially with a history of chronic kidney disease. I will add to his regimen isosorbide mononitrate 60 mg daily and metoprolol tartrate 25 mg twice a day. I will also add a proton pump inhibitor. Will follow his renal function and evaluate his symptoms in the next 24 hours and depending on that, further recommendation will be made. If needed, Ranexa can be added to his regimen. MMODL / IJN: [id number] /
[2018-02-11] MEDS: predniSONE 5 MG TAB PO SCH (11:37)
[2018-02-11] MEDS: PANTOPRAZOLE 40 MG TABLET PO SCH (11:38)
[2018-02-11] MEDS: ISOSORBIDE MONONITRATE ER 60 MG TAB.ER.24H PO SCH (11:38)
[2018-02-11] MEDS: METOPROLOL TARTRATE 25 MG TAB PO SCH ×2 (11:38→21:00)
[2018-02-11 12:02] LABS: Glucose,Whole Blood 101 mg/dL (75-99)
[2018-02-11] MEDS ORDERED: LACTULOSE 20 GM/30 ML CUP PO PRN (12:49)
--- NOTE | 2018-02-11 13:00 | P.PN ---
Subjective Progress Note Date: 02/11/18 This is an 87-year-old male patient of Dr. Martinez. Patient presented to the emergency room with complaints of intermittent chest pain. Patient says he woke up in the middle of night around 4:00am with sharp pain to his chest. Patient also states he had similar episode 4 days prior. Patient is extremely hard of hearing and poor historian. Past medical history includes diabetes mellitus, essential hypertension, cholecystectomy, coronary artery bypass graft in 2009, stage 3 renal failure, pancreatitis and cardiac stents. Initial troponin 0.02. Chest x-ray completed showing clinical correlation recommended for a lingular infiltrate. Pneumonia and atelectasis could be considered. There may be some superimposed pulmonary fibrosis. Mild cardiomegaly. Follow- up is recommended. EKG completed a normal sinus rhythm. Patient's creatinine 2.82 and bun 60. Patient states he does follow with nephrology services. Patient denies chest pain or shortness of breath. Patient denies nausea vomiting or diarrhea. Patient denies any urinary burning or frequency. Patient states he follows with Dr. Knutson in the office. Cardiology services have been consulted. On 02/11/2018 patient is currently resting in bed. Patient denies any chest pain or shortness of breath. Per family and patient patient had episode of chest pain during night with belching. symptoms have resolved medication adjusted per cardiology. Per cardiology would like to keep patient an additional 24 hours for monitoring with medication changes. We'll continue to hold Lasix per nephrology recommendation. At this time patient denies chest pain or shortness of breath. Patient denies cough. Patient denies any urinary burning or frequency. Patient denies nausea vomiting or diarrhea. Objective - Vital Signs Vital signs: Vital Signs Temp 96.3 F L 02/11/18 07:50 Pulse 69 02/11/18 11:35 Resp 18 02/11/18 11:35 BP 147/66 02/11/18 11:35 Pulse Ox 99 02/11/18 11:35 Intake & Output 02/10/18 02/11/18 02/11/18 18:59 06:59 18:59 Intake Total 0 911.89 Output Total 400 900 Balance -400 11.89 Weight 63 kg 62.6 kg Intake: Intake, IV Titration 211.89 Amount Heparin Sod,Pork in 0.45% 211.89 NaCl 25,000 unit In 0.45 % NaCl 1 500ml.bag @ 12 UNITS/KG/HR 15.12 mls/hr IV .Q24H [facility] Rx#: [id number] Oral 0 700 Output: Urine 400 900 Other: Voiding Method Toilet Toilet Toilet # Bowel Movements 1 - Exam Head normocephalic Neck supple Lungs clear to auscultation bilaterally no wheezing or crackles Heart regular rate and rhythm S1-S2, no rub or gallop Abdomen is soft nontender nondistended positive bowel sounds no hepatosplenomegaly Extremities no edema Neuro alert and orientated to 3 - Labs CBC & Chem 7: 02/11/18 03:03 02/11/18 06:44 Labs: Abnormal Lab Results - Last 24 Hours (Table) 02/10/18 02/10/18 02/10/18 Range/Units 15:09 15:09 16:57 RBC (4.30-5.90) m/uL Hgb (13.0-17.5) gm/dL Hct (39.0-53.0) % Lymphocytes # (1.0-4.8) k/uL APTT (22.0-30.0) sec Chloride 111 H (98-107) mmol/L BUN 60 H (9-20) mg/dL Creatinine 2.63 H (0.66-1.25) mg/dL Glucose 140 H (74-99) mg/dL POC Glucose (mg/dL) 121 H (75-99) mg/dL ALT 17 L (21-72) U/L Total Creatine Kinase 32 L (55-170) U/L Troponin I 0.036 H* (0.000-0.034) ng/mL Total Protein 5.8 L (6.3-8.2) g/dL Albumin 3.3 L (3.5-5.0) g/dL 02/10/18 02/10/18 02/11/18 Range/Units 19:57 19:57 01:39 RBC (4.30-5.90) m/uL Hgb (13.0-17.5) gm/dL Hct (39.0-53.0) % Lymphocytes # (1.0-4.8) k/uL APTT 87.0 H (22.0-30.0) sec Chloride (98-107) mmol/L BUN (9-20) mg/dL Creatinine (0.66-1.25) mg/dL Glucose (74-99) mg/dL POC Glucose (mg/dL) 59 L (75-99) mg/dL ALT (21-72) U/L Total Creatine Kinase 33 L (55-170) U/L Troponin I (0.000-0.034) ng/mL Total Protein (6.3-8.2) g/dL Albumin (3.5-5.0) g/dL 02/11/18 02/11/18 02/11/18 Range/Units 02:04 03:03 03:03 RBC 3.79 L (4.30-5.90) m/uL Hgb 11.8 L (13.0-17.5) gm/dL Hct 37.1 L (39.0-53.0) % Lymphocytes # 0.9 L (1.0-4.8) k/uL APTT 51.5 H (22.0-30.0) sec Chloride (98-107) mmol/L BUN (9-20) mg/dL Creatinine (0.66-1.25) mg/dL Glucose (74-99) mg/dL POC Glucose (mg/dL) 141 H (75-99) mg/dL ALT (21-72) U/L Total Creatine Kinase (55-170) U/L Troponin I (0.000-0.034) ng/mL Total Protein (6.3-8.2) g/dL Albumin (3.5-5.0) g/dL 02/11/18 02/11/18 02/11/18 Range/Units 05:22 06:44 11:51 RBC (4.30-5.90) m/uL Hgb (13.0-17.5) gm/dL Hct (39.0-53.0) % Lymphocytes # (1.0-4.8) k/uL APTT (22.0-30.0) sec Chloride 112 H (98-107) mmol/L BUN 56 H (9-20) mg/dL Creatinine 2.24 H (0.66-1.25) mg/dL Glucose (74-99) mg/dL POC Glucose (mg/dL) 121 H 101 H (75-99) mg/dL ALT (21-72) U/L Total Creatine Kinase (55-170) U/L Troponin I (0.000-0.034) ng/mL Total Protein (6.3-8.2) g/dL Albumin (3.5-5.0) g/dL Assessment and Plan Assessment: 1. Chest pain. EKG showing normal sinus rhythm. Chest x-ray completed showing clinical correlation recommended for Lingular infiltrate. Pneumonia and atelectasis could be considered. There may be some superimposed pulmonary fibrosis. Mild cardiomegaly. Follow-up is recommended. troponin 0.029, 0.036 and 0.032 2-D echo completed showing an EF of 50-55%. patient currently on heparin drip Per cardiology services discussion was held with patient and family in regards to options. Plan is for conservative treatment due to history of chronic kidney disease. Per cardiology Imdur 60 mg daily and metoprolol 25 twice a day has been added along with protein pump inhibitor. We' ll continue to monitor renal function and symptoms for the next 24 hours and depending on that further recreational be made per cardiology services 2. Acute on chronic kidney disease stage III. Creatinine 2.82 and bun 60 this does appear higher than previous levels. Per nephrology services need to hold diuretic and repeat electrolytes in a.m. 3. History of coronary artery bypass graft surgery in 2008. Patient maintained on Plavix 4. History of diabetes mellitus type 2. Patient currently on glipizide 5. History of cholecystectomy 6. History of essential hypertension Per cardiology services will continue to monitor symptoms for the next 24 hours Repeat chest x-ray showing stable chest. Patient denies shortness of breath or cough at this time. Continue incentive spirometer I performed an examination of the patient and discussed their management with the Nurse Practitioner. I have reviewed the Nurse Practitioner's notes and agree with the documented findings and plan of care
[2018-02-11 16:12] LABS: Glucose,Whole Blood 108 mg/dL (75-99)
[2018-02-11] MEDS: HEPARIN SOD,PORK IN 0.45% NACL 25,000 UNIT in 0.45% NACL 1 500ML.BAG IV SCH (17:16)
[2018-02-11] MEDS: DOCUSATE 100 MG CAP PO SCH (21:00)
[2018-02-11 21:02] LABS: Glucose,Whole Blood 118 mg/dL (75-99)
[2018-02-12] MEDS: PANTOPRAZOLE 40 MG TABLET PO SCH (06:26)
[2018-02-12] MEDS: LEVOTHYROXINE 25 MCG TAB PO SCH (06:26)
[2018-02-12 06:37] LABS: Glucose,Whole Blood 57 mg/dL (75-99)
[2018-02-12 06:50] LABS: Basophils % (A) 0 %; Eosinophils # (A) 0.1 k/uL (0-0.7); Eosinophils % (A) 1 %; HCT 36.3 % (39.0-53.0); HGB 11.7 gm/dL (13.0-17.5); Lymphocytes # (A) 1.1 k/uL (1.0-4.8); Lymphocytes % (A) 14 %; MCH 30.5 pg (25.0-35.0); MCHC 32.2 g/dL (31.0-37.0); MCV 94.9 fL (80.0-100.0); Mean Platelet Volume 7.5; Monocytes # (A) 0.7 k/uL (0-1.0); Monocytes % (A) 9 %; Neutrophils # (A) 5.7 k/uL (1.3-7.7); Neutrophils % (A) 73 %; Platelet Count 199 k/uL (150-450); RBC 3.83 m/uL (4.30-5.90); RDW 15.1 % (11.5-15.5); WBC 7.8 k/uL (3.8-10.6)
[2018-02-12 07:29] LABS: Calcium 9.2 mg/dL (8.4-10.2); Potassium 4.4 mmol/L (3.5-5.1)
[2018-02-12 07:58] LABS: Glucose,Whole Blood 108 mg/dL (75-99)
[2018-02-12] MEDS: ATORVASTATIN 40 MG TAB PO SCH (08:26)
[2018-02-12] MEDS: CHOLECALCIFEROL 1,000 UNIT TAB PO SCH (08:26)
[2018-02-12] MEDS: ASPIRIN 81 MG PO SCH (08:26)
[2018-02-12] MEDS: METOPROLOL TARTRATE 25 MG TAB PO SCH ×2 (08:27→19:54)
[2018-02-12] MEDS: CLOPIDOGREL 75 MG TAB PO SCH (08:27)
[2018-02-12] MEDS: ISOSORBIDE MONONITRATE ER 60 MG TAB.ER.24H PO SCH (08:27)
[2018-02-12] MEDS: DOCUSATE 100 MG CAP PO SCH ×2 (08:27→19:54)
[2018-02-12] MEDS: predniSONE 5 MG TAB PO SCH (08:30)
--- NOTE | 2018-02-12 08:56 | P.PN ---
Subjective Progress Note Date: 02/12/18 This is an 87-year-old male with chronic kidney disease who presented with chest pain and shortness of breath. The chest pain is resolved completely. The shortness of breath is at baseline. He has COPD. He had mild degree of acute kidney injury. His creatinine was 1. 11/18/2016, he came in with a creatinine of 2.8 and now is down to 2.1. He does have mild chronic cough. Good appetite no nausea vomiting no fever chills. Objective - Vital Signs Vital signs: Vital Signs Temp 97.4 F L 02/12/18 08:00 Pulse 62 02/12/18 08:00 Resp 18 02/12/18 08:00 BP 109/59 02/12/18 08:00 Pulse Ox 100 02/12/18 08:00 Intake & Output 02/11/18 02/12/18 02/12/18 18:59 06:59 18:59 Intake Total 408.21 Output Total 1100 Balance 408.21 -1100 Weight 62.4 kg Intake: Intake, IV Titration 168.21 Amount Heparin Sod,Pork in 0.45% 168.21 NaCl 25,000 unit In 0.45 % NaCl 1 500ml.bag @ 12 UNITS/KG/HR 15.12 mls/hr IV .Q24H [facility] Rx#: [id number] Oral 240 Output: Urine 1100 Other: Voiding Method Toilet Urinal Urinal # Bowel Movements 1 On examination is awake alert oriented comfortable HEENT exam no JVP neck is supple no facial asymmetry Lungs are significant for bilateral fine crackles at both bases more on the right than on the left Good air entry bilaterally Heart sounds are unremarkable for any murmur rub gallop Abdomen soft nontender no organomegaly status masses Extremity exam was no edema Neurologically awake alert oriented. Hard of hearing. - Labs CBC & Chem 7: 02/12/18 06:19 02/12/18 06:19 Labs: Abnormal Lab Results - Last 24 Hours (Table) 02/11/18 02/11/18 02/11/18 Range/Units 11:51 16:10 20:59 RBC (4.30-5.90) m/uL Hgb (13.0-17.5) gm/dL Hct (39.0-53.0) % Chloride (98-107) mmol/L BUN (9-20) mg/dL Creatinine (0.66-1.25) mg/dL Glucose (74-99) mg/dL POC Glucose (mg/dL) 101 H 108 H 118 H (75-99) mg/dL 02/12/18 02/12/18 02/12/18 Range/Units 06:19 06:19 06:33 RBC 3.83 L (4.30-5.90) m/uL Hgb 11.7 L (13.0-17.5) gm/dL Hct 36.3 L (39.0-53.0) % Chloride 111 H (98-107) mmol/L BUN 47 H (9-20) mg/dL Creatinine 2.19 H (0.66-1.25) mg/dL Glucose 49 L* (74-99) mg/dL POC Glucose (mg/dL) 57 L (75-99) mg/dL 02/12/18 Range/Units 07:56 RBC (4.30-5.90) m/uL Hgb (13.0-17.5) gm/dL Hct (39.0-53.0) % Chloride (98-107) mmol/L BUN (9-20) mg/dL Creatinine (0.66-1.25) mg/dL Glucose (74-99) mg/dL POC Glucose (mg/dL) 108 H (75-99) mg/dL Assessment and Plan Assessment: Impression. 1. Acute kidney injury secondary to prerenal, improved off of diuretics. Creatinine was 1.8 in 2017 at admission was 2.8 and now is 2.1 this morning. 2. Chronic kidney disease secondary to nephrosclerosis Baseline creatinine is 1.8 in 2017 but more recent baseline 2.7 dated 12/24/2017 3. Coronary artery disease status post coronary artery bypass graft. 4. His chest pain resolved. Troponins nearly normal, cardiology on the case 5. Hypertension at target, 106 somewhat low but asymptomatic. 6. Anemia hemoglobin 11.7 at target. 7. COPD with a few fine crackles at bases Recommendations. 1. Maintain current medications watch for hypotension, currently on 25 mg of metoprolol twice a day. 2. Diuretics on hold, continue to do so as blood pressure is low and his breathing is fairly at baseline. 3. He can be discharged home but will need to be followed up closely regarding reinstitution of diuretic therapy
[2018-02-12] MEDS: glipiZIDE 5 MG TAB PO SCH (10:26)
--- NOTE | 2018-02-12 11:06 | P.PN ---
Subjective Progress Note Date: 02/12/18 This is an 87-year-old male patient of Dr. Martinez. Patient presented to the emergency room with complaints of intermittent chest pain. Patient says he woke up in the middle of night around 4:00am with sharp pain to his chest. Patient also states he had similar episode 4 days prior. Patient is extremely hard of hearing and poor historian. Past medical history includes diabetes mellitus, essential hypertension, cholecystectomy, coronary artery bypass graft in 2009, stage 3 renal failure, pancreatitis and cardiac stents. Initial troponin 0.02. Chest x-ray completed showing clinical correlation recommended for a lingular infiltrate. Pneumonia and atelectasis could be considered. There may be some superimposed pulmonary fibrosis. Mild cardiomegaly. Follow- up is recommended. EKG completed a normal sinus rhythm. Patient's creatinine 2.82 and bun 60. Patient states he does follow with nephrology services. Patient denies chest pain or shortness of breath. Patient denies nausea vomiting or diarrhea. Patient denies any urinary burning or frequency. Patient states he follows with Dr. Knutson in the office. Cardiology services have been consulted. On 02/11/2018 patient is currently resting in bed. Patient denies any chest pain or shortness of breath. Per family and patient patient had episode of chest pain during night with belching. symptoms have resolved medication adjusted per cardiology. Per cardiology would like to keep patient an additional 24 hours for monitoring with medication changes. We'll continue to hold Lasix per nephrology recommendation. At this time patient denies chest pain or shortness of breath. Patient denies cough. Patient denies any urinary burning or frequency. Patient denies nausea vomiting or diarrhea. On 02/12/2018 patient is alert and oriented 3 in no apparent distress, he is hard of hearing, he is still maintained on IV heparin, he denies any chest pain at this time, there is no fever or chills no headache or dizziness, he has shortness of breath with any activity, there is no cough no nausea or vomiting no abdominal pain no diarrhea and no urinary symptoms Objective - Vital Signs Vital signs: Vital Signs Temp 97.4 F L 02/12/18 08:00 Pulse 62 02/12/18 08:00 Resp 18 02/12/18 08:00 BP 109/59 02/12/18 08:00 Pulse Ox 100 02/12/18 08:00 Intake & Output 02/11/18 02/12/18 02/12/18 18:59 06:59 18:59 Intake Total 408.21 250 Output Total 1100 Balance 408.21 -1100 250 Weight 62.4 kg Intake: IV 250 Heparin Sod,Pork in 0.45% 90 NaCl 25,000 unit In 0.45 % NaCl 1 500ml.bag @ 12 UNITS/KG/HR 15.12 mls/hr IV .Q24H [facility] Rx#: [id number] saline 160 Intake, IV Titration 168.21 Amount Heparin Sod,Pork in 0.45% 168.21 NaCl 25,000 unit In 0.45 % NaCl 1 500ml.bag @ 12 UNITS/KG/HR 15.12 mls/hr IV .Q24H [facility] Rx#: [id number] Oral 240 Output: Urine 1100 Other: Voiding Method Toilet Urinal Urinal # Voids 3 # Bowel Movements 1 - Exam Head normocephalic and atraumatic Neck supple no JVD no goiter Lungs clear to auscultation bilaterally no wheezing or crackles Heart regular rate and rhythm S1-S2, no rub or gallop Abdomen is soft nontender nondistended positive bowel sounds no hepatosplenomegaly Extremities no edema no cyanosis or clubbing Neuro alert and orientated to 3 - Labs CBC & Chem 7: 02/12/18 06:19 02/12/18 06:19 Labs: Abnormal Lab Results - Last 24 Hours (Table) 02/11/18 02/11/18 02/11/18 Range/Units 11:51 16:10 20:59 RBC (4.30-5.90) m/uL Hgb (13.0-17.5) gm/dL Hct (39.0-53.0) % Chloride (98-107) mmol/L BUN (9-20) mg/dL Creatinine (0.66-1.25) mg/dL Glucose (74-99) mg/dL POC Glucose (mg/dL) 101 H 108 H 118 H (75-99) mg/dL 02/12/18 02/12/18 02/12/18 Range/Units 06:19 06:19 06:33 RBC 3.83 L (4.30-5.90) m/uL Hgb 11.7 L (13.0-17.5) gm/dL Hct 36.3 L (39.0-53.0) % Chloride 111 H (98-107) mmol/L BUN 47 H (9-20) mg/dL Creatinine 2.19 H (0.66-1.25) mg/dL Glucose 49 L* (74-99) mg/dL POC Glucose (mg/dL) 57 L (75-99) mg/dL 02/12/18 Range/Units 07:56 RBC (4.30-5.90) m/uL Hgb (13.0-17.5) gm/dL Hct (39.0-53.0) % Chloride (98-107) mmol/L BUN (9-20) mg/dL Creatinine (0.66-1.25) mg/dL Glucose (74-99) mg/dL POC Glucose (mg/dL) 108 H (75-99) mg/dL Assessment and Plan Plan: 1. Chest pain. EKG showing normal sinus rhythm. Chest x-ray completed showing clinical correlation recommended for Lingular infiltrate. Pneumonia and atelectasis could be considered. There may be some superimposed pulmonary fibrosis. Mild cardiomegaly. Follow-up is recommended. troponin 0.029, 0.036 and 0.032 2-D echo completed showing an EF of 50-55%. patient currently on heparin drip Per cardiology services discussion was held with patient and family in regards to options. Plan is for conservative treatment due to history of chronic kidney disease. Per cardiology Imdur 60 mg daily and metoprolol 25 twice a day has been added along with protein pump inhibitor. We' ll continue to monitor renal function and symptoms for the next 24 hours and depending on that further recreational be made per cardiology services 2. Acute on chronic kidney disease stage III. Creatinine 2.82 and bun 60 this does appear higher than previous levels. Per nephrology services need to hold diuretic and repeat electrolytes in a.m. 3. History of coronary artery bypass graft surgery in 2008. Patient maintained on Plavix 4. History of diabetes mellitus type 2. Patient currently on glipizide 5. History of cholecystectomy 6. History of essential hypertension Case discussed with cardiology, plan at this time is to discontinue IV heparin, have patient ambulate, monitor for 24 hours, if no chest pain patient may be discharged tomorrow Repeat chest x-ray showing stable chest. Patient has shortness of breath but no cough no fever and no leukocytosis, no clinical evidence of pneumonia Will monitor closely. Continue incentive spirometer Plan to discharge home tomorrow if stable
[2018-02-12 11:47] LABS: Glucose,Whole Blood 175 mg/dL (75-99)
[2018-02-12] MEDS: MULTIVITAMINS, THERA 1 EACH TAB PO SCH (12:18)
[2018-02-12 16:47] LABS: Glucose,Whole Blood 207 mg/dL (75-99)
[2018-02-12 20:22] LABS: Glucose,Whole Blood 243 mg/dL (75-99)
[2018-02-13 06:18] LABS: Glucose,Whole Blood 89 mg/dL (75-99)
[2018-02-13] MEDS: LEVOTHYROXINE 25 MCG TAB PO SCH (06:23)
[2018-02-13] MEDS: PANTOPRAZOLE 40 MG TABLET PO SCH (06:23)
[2018-02-13 06:24] LABS: Basophils % (A) 1 %; Eosinophils # (A) 0.1 k/uL (0-0.7); Eosinophils % (A) 1 %; HCT 35.9 % (39.0-53.0); HGB 11.7 gm/dL (13.0-17.5); Lymphocytes % (A) 15 %; MCH 30.8 pg (25.0-35.0); MCHC 32.6 g/dL (31.0-37.0); MCV 94.6 fL (80.0-100.0); Mean Platelet Volume 7.4; Monocytes # (A) 0.6 k/uL (0-1.0); Monocytes % (A) 8 %; Neutrophils # (A) 5.1 k/uL (1.3-7.7); Neutrophils % (A) 73 %; Platelet Count 185 k/uL (150-450); RDW 15.1 % (11.5-15.5); WBC 6.9 k/uL (3.8-10.6)
[2018-02-13] MEDS: MULTIVITAMINS, THERA 1 EACH TAB PO SCH (08:38)
[2018-02-13] MEDS: ATORVASTATIN 40 MG TAB PO SCH (08:38)
[2018-02-13] MEDS: predniSONE 5 MG TAB PO SCH (08:38)
[2018-02-13] MEDS: ALLOPURINOL 300 MG TAB PO SCH (08:38)
[2018-02-13] MEDS: CLOPIDOGREL 75 MG TAB PO SCH (08:38)
[2018-02-13] MEDS: ASPIRIN 81 MG PO SCH (08:38)
[2018-02-13] MEDS: METOPROLOL TARTRATE 25 MG TAB PO SCH (08:38)
[2018-02-13] MEDS: ISOSORBIDE MONONITRATE ER 60 MG TAB.ER.24H PO SCH (08:38)
[2018-02-13] MEDS: CHOLECALCIFEROL 1,000 UNIT TAB PO SCH (08:39)
[2018-02-13] MEDS: DOCUSATE 100 MG CAP PO SCH (08:39)
--- NOTE | 2018-02-13 10:11 | P.PN ---
Subjective Progress Note Date: 02/13/18 This is an 87-year-old male with chronic kidney disease who presented with chest pain and shortness of breath. The chest pain is resolved completely. The shortness of breath is at baseline. He has COPD. He had mild degree of acute kidney injury. His creatinine was 1. 11/18/2016, he came in with a creatinine of 2.8 and now is down to 2.1 as of yesterday. He is feeling fairly comfortable today and denies any fever chills cough or dizziness. He has exertional shortness of breath is unchanged. Currently off of diuretics creatinine has improved Objective - Vital Signs Vital signs: Vital Signs Temp 97.9 F 02/13/18 08:00 Pulse 60 02/13/18 08:00 Resp 16 02/13/18 08:00 BP 133/63 02/13/18 08:00 Pulse Ox 97 02/13/18 08:00 Intake & Output 02/12/18 02/13/18 02/13/18 18:59 06:59 18:59 Intake Total 970 490 240 Output Total 300 Balance 970 190 240 Weight 62.3 kg Intake: IV 250 10 Heparin Sod,Pork in 0.45% 90 NaCl 25,000 unit In 0.45 % NaCl 1 500ml.bag @ 12 UNITS/KG/HR 15.12 mls/hr IV .Q24H [facility] Rx#: [id number] saline 160 10 Oral 720 480 240 Output: Urine 300 Other: Voiding Method Urinal Toilet Urinal # Voids 3 3 On examination awake alert oriented HEENT exam no JVP neck is supple no facial asymmetry Lungs are clear to auscultation good air entry bilaterally Heart sounds unremarkable for any murmur rub gallop Abdomen soft nontender no masses felt Extremity examination exam was no edema Neurologically awake alert oriented hard of hearing. - Labs CBC & Chem 7: 02/13/18 05:43 02/12/18 06:19 Labs: Abnormal Lab Results - Last 24 Hours (Table) 02/12/18 02/12/18 02/12/18 Range/Units 11:27 16:42 20:20 RBC (4.30-5.90) m/uL Hgb (13.0-17.5) gm/dL Hct (39.0-53.0) % POC Glucose (mg/dL) 175 H 207 H 243 H (75-99) mg/dL 02/13/18 Range/Units 05:43 RBC 3.80 L (4.30-5.90) m/uL Hgb 11.7 L (13.0-17.5) gm/dL Hct 35.9 L (39.0-53.0) % POC Glucose (mg/dL) (75-99) mg/dL Assessment and Plan Assessment: Impression. 1. Acute kidney injury secondary to prerenal, improved off of diuretics. Creatinine was 1.8 in 2017 at admission was 2.8 and now is 2.1 as of yesterday morning. No labs are available this morning. 2. Chronic kidney disease secondary to nephrosclerosis Baseline creatinine is 1.8 in 2017 but more recent baseline 2.7 dated 12/24/2017 3. Coronary artery disease status post coronary artery bypass graft. 4. His chest pain resolved. Troponins nearly normal, cardiology on the case 5. Hypertension at target, blood pressures come up since yesterday into the 1: 30 to 140 range. 6. Anemia hemoglobin 11.7 at target. 7. COPD with a few fine crackles at bases,improved Recommendations. 1. Maintain current medications watch for hypertension, currently on 25 mg of metoprolol twice a day. 2. Diuretics on hold, will resume 20 mg every other day as his blood pressure has come up, will follow-up with orthostatic changes in the office 3. He can be discharged home but will need to be followed up closely regarding reinstitution of diuretic therapy
[2018-02-13 10:35] LABS: Potassium 4.7 mmol/L (3.5-5.1); Total Bilirubin 0.6 mg/dL (0.2-1.3); Total Protein 5.5 g/dL (6.3-8.2)
--- NOTE | 2018-02-13 11:44 | PN ---
PROGRESS NOTE Mr. Nesbitt is an 87-year-old gentleman who is admitted with symptoms of chest discomfort and belching. The patient has a known history of coronary artery bypass surgery. He is feeling well. Walking in the hallway without any problems. He has no reoccurrence of angina. He is sitting comfortably in the chair. His blood pressure is 130/64 mmHg, heart rate is 65 per minute. First and second heart sounds are heard. Lungs are fairly clear to auscultation and percussion. IMPRESSION: 1. Patient has a history suggestive of unstable angina syndrome without definite evidence of acute coronary syndrome. 2. Acute non ST-segment elevation myocardial infarction. 3. Patient has a history of chronic kidney disease. We will recommend to continue the medical treatment. If the patient remains stable, he can be discharged home tomorrow. MMODL / JOYN: [id number] /
[2018-02-13 11:45] LABS: Glucose,Whole Blood 105 mg/dL (75-99)
[2018-02-13 12:06] VITALS: BP 120/56; PULSE 59; RESP 18; TEMP 98
--- NOTE | 2018-02-13 12:44 | P.PN ---
Subjective Progress Note Date: 02/13/18 This is a pleasant 87-year-old dominant who follows with Dr. Hu in the office was admitted with chest discomfort. Patient did have minimal troponin elevation. He does have history of CAD with prior CABG. Oral nitrate was increased and he was started on Protonix. Patient has had no further complaints of chest discomfort. Been up ambulating without much difficulties. He does have some shortness of breath which is stable for him. Vital signs have been stable. He said no complete dizziness, lightheadedness, syncope, orthopnea, edema or palpitations. Objective - Vital Signs Vital signs: Vital Signs Temp 98 F 02/13/18 12:00 Pulse 59 L 02/13/18 12:00 Resp 18 02/13/18 12:00 BP 120/56 02/13/18 12:00 Pulse Ox 98 02/13/18 12:00 Intake & Output 02/12/18 02/13/18 02/13/18 18:59 06:59 18:59 Intake Total 970 490 240 Output Total 300 Balance 970 190 240 Weight 62.3 kg Intake: IV 250 10 Heparin Sod,Pork in 0.45% 90 NaCl 25,000 unit In 0.45 % NaCl 1 500ml.bag @ 12 UNITS/KG/HR 15.12 mls/hr IV .Q24H [facility] Rx#: [id number] saline 160 10 Oral 720 480 240 Output: Urine 300 Other: Voiding Method Urinal Toilet Urinal # Voids 3 3 - Exam PHYSICAL EXAMINATION: HEENT: Head is atraumatic, normocephalic. Pupils equal, round. Neck is supple. There is no elevated jugular venous pressure. HEART EXAMINATION: Heart sounds regular, S1 and S2 with a systolic murmur. CHEST EXAMINATION: Lungs are clear to auscultation and precussion. No chest wall tenderness is noted on palpation or with deep breathing. ABDOMEN: Soft, nontender. Bowel sounds are heard. No organomegaly noted. EXTREMITIES: 2+ peripheral pulses with no evidence of peripheral edema and no calf tenderness noted. NEUROLOGIC patient is awake, alert and oriented x3. . - Labs CBC & Chem 7: 02/13/18 05:43 02/13/18 05:43 Labs: Abnormal Lab Results - Last 24 Hours (Table) 02/12/18 02/12/18 02/13/18 Range/Units 16:42 20:20 05:43 RBC 3.80 L (4.30-5.90) m/uL Hgb 11.7 L (13.0-17.5) gm/dL Hct 35.9 L (39.0-53.0) % Chloride (98-107) mmol/L BUN (9-20) mg/dL Creatinine (0.66-1.25) mg/dL POC Glucose (mg/dL) 207 H 243 H (75-99) mg/dL Total Protein (6.3-8.2) g/dL Albumin (3.5-5.0) g/dL 02/13/18 02/13/18 Range/Units 05:43 11:43 RBC (4.30-5.90) m/uL Hgb (13.0-17.5) gm/dL Hct (39.0-53.0) % Chloride 112 H (98-107) mmol/L BUN 45 H (9-20) mg/dL Creatinine 2.21 H (0.66-1.25) mg/dL POC Glucose (mg/dL) 105 H (75-99) mg/dL Total Protein 5.5 L (6.3-8.2) g/dL Albumin 3.0 L (3.5-5.0) g/dL Assessment and Plan Assessment: 1 symptoms of chest discomfort with no evidence of acute myocardial infarction, could be angina related, improved with Protonix and higher dose oral nitrate #2 status post CABG done in 2008 #3 stage IV chronic kidney disease #4 hypertension #5 hyperlipidemia #6 diabetes mellitus Plan: From cardiology's perspective, medications were reviewed and will continue the same. From our standpoint, patient may be discharged home. He will follow-up with Dr. Knutson in the office. PERSONAL SUPPORT WORKER note has been reviewed, I agree with a documented findings and plan of care. Patient was seen and examined.
--- NOTE | 2018-02-13 13:09 | P.DS ---
Providers Date of admission: 02/11/18 14:05 Expected date of discharge: 02/13/18 Attending physician: Tristian Cruz Consults: 02/10/18 09:39 Consult Physician Urgent Consulting Provider: Michelle Knutson Consult Reason/Comments: cp Do you want consulting provider notified?: Yes 02/10/18 13:13 Consult Physician Routine Consulting Provider: Shanta Boland Consult Reason/Comments: elevated Creat Do you want consulting provider notified?: Yes Primary care physician: Nico Martinez Hospital Course: Discharge summary 1. Chest pain with no evidence of acute myocardial infarction could be angina related. EKG showing normal sinus rhythm. Chest x-ray completed showing clinical correlation recommended for Lingular infiltrate. Pneumonia and atelectasis could be considered. There may be some superimposed pulmonary fibrosis. Mild cardiomegaly. Follow-up is recommended. troponin 0.029, 0.036 and 0.032 2-D echo completed showing an EF of 50-55%. patient currently on heparin drip Per cardiology services discussion was held with patient and family in regards to options. Plan is for conservative treatment due to history of chronic kidney disease. Per cardiology Imdur 60 mg daily and metoprolol 25 twice a day has been added along with protein pump inhibitor. Patient has been asymptomatic chest pain with activities past 24 hours. Patient has been cleared for discharge from cardiology standpoint. Imdur and Lopressor and nitro have been increased. Patient also be DC'd home on protein pump inhibitor. 2. Acute on chronic kidney disease stage III. Creatinine 2.82 and bun 60 this does appear higher than previous levels. Per nephrology services will resume Lasix every other day. She has been cleared for discharge from nephrology services but it is to follow-up closely. Will order CMP for 2 days 3. History of coronary artery bypass graft surgery in 2008. Patient maintained on Plavix 4. History of diabetes mellitus type 2. Patient currently on glipizide. Patient having hypoglycemic episodes. Glipizide will be discontinued. Patient advised to follow-up closely with primary care provider 5. History of cholecystectomy 6. History of essential hypertension Hospital course This is an 87-year-old male patient of Dr. Martinez. Patient presented to the emergency room with complaints of intermittent chest pain. Patient says he woke up in the middle of night around 4:00am with sharp pain to his chest. Patient also states he had similar episode 4 days prior. Patient is extremely hard of hearing and poor historian. Past medical history includes diabetes mellitus, essential hypertension, cholecystectomy, coronary artery bypass graft in 2009, stage 3 renal failure, pancreatitis and cardiac stents. Initial troponin 0.02. Chest x-ray completed showing clinical correlation recommended for a lingular infiltrate. Pneumonia and atelectasis could be considered. There may be some superimposed pulmonary fibrosis. Mild cardiomegaly. Follow- up is recommended. EKG completed a normal sinus rhythm. Patient's creatinine 2.82 and bun 60. Patient states he does follow with nephrology services. Patient denies chest pain or shortness of breath. Patient denies nausea vomiting or diarrhea. Patient denies any urinary burning or frequency. Patient states he follows with Dr. Knutson in the office. Cardiology services have been consulted. On 02/11/2018 patient is currently resting in bed. Patient denies any chest pain or shortness of breath. Per family and patient patient had episode of chest pain during night with belching. symptoms have resolved medication adjusted per cardiology. Per cardiology would like to keep patient an additional 24 hours for monitoring with medication changes. We'll continue to hold Lasix per nephrology recommendation. At this time patient denies chest pain or shortness of breath. Patient denies cough. Patient denies any urinary burning or frequency. Patient denies nausea vomiting or diarrhea. On 02/12/2018 patient is alert and oriented 3 in no apparent distress, he is hard of hearing, he is still maintained on IV heparin, he denies any chest pain at this time, there is no fever or chills no headache or dizziness, he has shortness of breath with any activity, there is no cough no nausea or vomiting no abdominal pain no diarrhea and no urinary symptoms On 02/13/2018 patient is alert and oriented 3. Patient is eager to go home. Patient has been up walking around without any episodes of chest pain. Cuff case with cardiology services. Patient has been cleared for discharge. Patient also cleared for discharge from nephrology standpoint. Patient will resume Lasix every other day and follow-up closely outpatient with nephrology and cardiology services. At this time patient denies chest pain or shortness breath. Patient denies nausea vomiting or diarrhea. Patient denies any urinary burning or frequency. Also had episode of hypoglycemia this a.m. Glipizide will be discontinued. Patient will follow-up closely with PCP I performed an examination of the patient and discussed their management with the Nurse Practitioner. I have reviewed the Nurse Practitioner's notes and agree with the documented findings and plan of care Patient Condition at Discharge: Stable Plan - Discharge Summary Discharge Rx Participant: No New Discharge Prescriptions: New Aspirin 81 mg PO DAILY chew Isosorbide Mononitrate ER [Imdur] 60 mg PO DAILY #90 tab.er.24h Metoprolol Tartrate [Lopressor] 25 mg PO BID #180 tab Nitroglycerin Sl Tabs [Nitrostat] 0.4 mg SUBLINGUAL Q5M PRN #25 tab PRN Reason: Chest Pain Continue predniSONE 5 mg PO DAILY Multivitamin,Therapeutic [Thera] 1 tab PO DAILY Clopidogrel [Plavix] 75 mg PO DAILY Levothyroxine Sodium [Synthroid] 25 mcg PO DAILY Furosemide [Lasix] 20 mg PO Q48H Atorvastatin [Lipitor] 40 mg PO DAILY Allopurinol [Zyloprim] 300 mg PO Q48H Albuterol Nebulized [Ventolin Nebulized] 1 vial INHALATION RT-Q6H PRN PRN Reason: Shortness Of Breath Cholecalciferol (Vitamin D3) [Vitamin D3] 2,000 unit PO DAILY Discontinued glipiZIDE [Glucotrol] 5 mg PO TID Discharge Medication List Albuterol Nebulized [Ventolin Nebulized] 1 vial INHALATION RT-Q6H PRN 02/10/18 [ History] Allopurinol [Zyloprim] 300 mg PO Q48H 02/10/18 [History] Atorvastatin [Lipitor] 40 mg PO DAILY 02/10/18 [History] Cholecalciferol (Vitamin D3) [Vitamin D3] 2,000 unit PO DAILY 02/10/18 [History] Clopidogrel [Plavix] 75 mg PO DAILY 02/10/18 [History] Furosemide [Lasix] 20 mg PO Q48H 02/10/18 [History] Levothyroxine Sodium [Synthroid] 25 mcg PO DAILY 02/10/18 [History] Multivitamin,Therapeutic [Thera] 1 tab PO DAILY 02/10/18 [History] predniSONE 5 mg PO DAILY 02/10/18 [History] Aspirin 81 mg PO DAILY chew 02/13/18 [Rx] Isosorbide Mononitrate ER [Imdur] 60 mg PO DAILY #90 tab.er.24h 02/13/18 [Rx] Metoprolol Tartrate [Lopressor] 25 mg PO BID #180 tab 02/13/18 [Rx] Nitroglycerin Sl Tabs [Nitrostat] 0.4 mg SUBLINGUAL Q5M PRN #25 tab 02/13/18 [Rx ] Follow up Appointment(s)/Referral(s): Michelle Knutson MD [STAFF PHYSICIAN] - 1 Week (Please call to make appointment Wednesday) Nico Martinez MD [Primary Care Provider] - 1-2 days (Please call to make appointment Wednesday) Activity/Diet/Wound Care/Special Instructions: Per Dr. Cheung Diuretics 20mg every other day
== END 2018-02-13 15:30 | disposition home or self-care (01) | DRG 303 ==
LOC: EC 07:49 → 1SOBS 09:39 → 3SCARD 12:25 → 1SOBS 12:26 → 3SCARD 12:59 → OBSVTOIN 02-11 14:05
PROVIDERS: ADMIT Internal Medicine; ATTEND Internal Medicine
DX: I25.110 Atherosclerotic heart disease of native coronary artery with unstable angina pectoris (principal); N17.9 Acute kidney failure, unspecified; J98.11 Atelectasis; I48.0 Paroxysmal atrial fibrillation; D64.9 Anemia, unspecified; E03.9 Hypothyroidism, unspecified; E11.22 Type 2 diabetes mellitus with diabetic chronic kidney disease; E11.649 Type 2 diabetes mellitus with hypoglycemia without coma; J84.10 Pulmonary fibrosis, unspecified; J44.9 Chronic obstructive pulmonary disease, unspecified; E78.5 Hyperlipidemia, unspecified; H91.90 Unspecified hearing loss, unspecified ear; I13.10 Hypertensive heart and chronic kidney disease without heart failure, with stage 1 through stage 4 chronic kidney disease, or unspecified chronic kidney disease; N18.3 Chronic kidney disease, stage 3 (moderate); N40.0 Benign prostatic hyperplasia without lower urinary tract symptoms; T50.2X5A Adverse effect of carbonic-anhydrase inhibitors, benzothiadiazides and other diuretics, initial encounter; E55.9 Vitamin D deficiency, unspecified; K44.9 Diaphragmatic hernia without obstruction or gangrene; K64.9 Unspecified hemorrhoids; M10.9 Gout, unspecified; R05 Cough; E83.89 Other disorders of mineral metabolism; Z79.02 Long term (current) use of antithrombotics/antiplatelets; Z79.84 Long term (current) use of oral hypoglycemic drugs; Z79.899 Other long term (current) drug therapy; Z79.52 Long term (current) use of systemic steroids; Z98.42 Cataract extraction status, left eye; Z98.41 Cataract extraction status, right eye; Z96.1 Presence of intraocular lens; Z91.013 Allergy to seafood; Z95.5 Presence of coronary angioplasty implant and graft; Z95.1 Presence of aortocoronary bypass graft; Z90.49 Acquired absence of other specified parts of digestive tract; Z87.891 Personal history of nicotine dependence; Z86.010 Personal history of colon polyps; Z80.7 Family history of other malignant neoplasms of lymphoid, hematopoietic and related tissues; Z80.1 Family history of malignant neoplasm of trachea, bronchus and lung
CPT/HCPCS: 36415; 71046; 80048; 80053; 80061; 81003; 82550; 82553; 83735; 84484; 85025; 85610; 85730; 93005; 93306; 99285

== ENCOUNTER 2018-03-20 06:56 | Inpatient (IN) | payer MEDICARE ==
[2018-03-20] MEDS ORDERED: ASPIRIN 81 MG PO STA (07:08)
[2018-03-20] MEDS ORDERED: NITROGLYCERIN OINT 1 INCH/GM PACKET TOPICAL STA (07:09)
--- NOTE | 2018-03-20 07:12 | ED ---
Chest Pain HPI - General Source: patient, RN notes reviewed Mode of arrival: ambulatory Limitations: no limitations <Mendez Olivier - Last Filed: 03/20/18 09:17> <Ricardo Watkins - Last Filed: 03/20/18 09:42> - General Stated Complaint: Chest Pain Time Seen by Provider: 03/20/18 07:01 - History of Present Illness Initial Comments: 87-year-old male presents emergency Department chief complaint of chest pain. Patient states the pain has been going on all night long. Patient has had increasing chest pain over the last month or so. Patient states his assistance representative told him his stents are most likely occluded. Patient also battles with renal failure and they're afraid if they injected with dye that he may need dialysis. Patient states the pain is centralized sharp pain. Patient states is nonradiating. He has no shortness of breath. He is a former smoker years ago. No history of hypertension or hyperlipidemia. Patient's had open- heart surgery [address] Stearns. Patient did have some nausea yesterday nausea vomiting. (Mendez Olivier) - Related Data Home Medications Medication Instructions Recorded Confirmed Allopurinol [Zyloprim] 300 mg PO Q48H 02/10/18 03/20/18 Cholecalciferol (Vitamin D3) 2,000 unit PO DAILY 02/10/18 03/20/18 [Vitamin D3] Clopidogrel [Plavix] 75 mg PO DAILY 02/10/18 03/20/18 Furosemide [Lasix] 20 mg PO Q48H 02/10/18 03/20/18 Levothyroxine Sodium [Synthroid] 25 mcg PO DAILY 02/10/18 03/20/18 predniSONE 5 mg PO DAILY 02/10/18 03/20/18 Previous Rx's Medication Instructions Recorded Isosorbide Mononitrate ER [Imdur] 60 mg PO DAILY #90 tab.er.24h 02/13/18 Metoprolol Tartrate [Lopressor] 25 mg PO BID #180 tab 02/13/18 Nitroglycerin Sl Tabs [Nitrostat] 0.4 mg SUBLINGUAL Q5M PRN #25 tab 02/13/18 Allergies Allergy/AdvReac Type Severity Reaction Status Date / Time Iodinated Contrast- Oral and AdvReac STAGE 4 Verified 03/20/18 07:54 IV Dye RENAL FAILURE shellfish derived [Shrimp] AdvReac Nausea & Verified 03/20/18 07:54 Vomiting Review of Systems ROS Other: All systems not noted in ROS Statement are negative. <Mendez Olivier - Last Filed: 03/20/18 09:17> ROS Other: All systems not noted in ROS Statement are negative. <Ricardo Watkins - Last Filed: 03/20/18 09:42> ROS Statement: Those systems with pertinent positive or pertinent negative responses have been documented in the HPI. EKG Findings - EKG Comments: EKG Findings:: EKG performed at 17:10 normal sinus rhythm with rate of 81. 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 History of Any Multi-Drug Resistant Organisms: None Reported Past Surgical History: Cholecystectomy, Coronary Bypass/CABG Additional Past Surgical History / Comment(s): 2009 coronary bypass-2 vessel, PCI with stents-2005/2007, ERCP, colonoscopy with polypectomy, umbilical hernia repair, bilateral cataract removals with lens implants. Past Anesthesia/Blood Transfusion Reactions: No Reported Reaction Smoking Status: Former smoker - Past Family History Mother Family Medical History: Cancer Additional Family Medical History / Comment(s): Mother had multiple myeloma. Brother(s) Family Medical History: Cancer Additional Family Medical History / Comment(s): Brother had lung cancer. <Mendez Olivier - Last Filed: 03/20/18 09:17> General Exam General appearance: alert, in no apparent distress Head exam: Present: atraumatic, normocephalic, normal inspection Eye exam: Present: normal appearance, PERRL, EOMI. Absent: scleral icterus, conjunctival injection, periorbital swelling ENT exam: Present: normal exam, normal oropharynx, mucous membranes moist Neck exam: Present: normal inspection, full ROM. Absent: tenderness, meningismus, lymphadenopathy Respiratory exam: Present: normal lung sounds bilaterally. Absent: respiratory distress, wheezes, rales, rhonchi, stridor Cardiovascular Exam: Present: regular rate, normal rhythm, normal heart sounds. Absent: systolic murmur, diastolic murmur, rubs, gallop, clicks Neurological exam: Present: alert, oriented X3, CN II-XII intact Skin exam: Present: warm, dry, intact, normal color. Absent: rash <Mendez Olivier - Last Filed: 03/20/18 09:17> Course <Mendez Olivier - Last Filed: 03/20/18 09:17> <Ricardo Watkins - Last Filed: 03/20/18 09:42> Vital Signs 03/20/18 03/20/18 03/20/18 07:10 08:00 09:00 Temperature 97.8 F Pulse Rate 86 79 80 Respiratory 22 18 17 Rate Blood Pressure 143/70 143/70 118/66 O2 Sat by Pulse 94 L 100 100 Oximetry - Reevaluation(s) Reevaluation #1: 03/20/18 09:41 Patient reevaluated and reexamined by myself, Dr. Watkins. Patient resting comfortably in bed. Only mild discomfort at this point. Troponin has increased however renal function has decreased. Patient family are updated. Case was discussed in detail with Dr. Jones, covering for Dr. Bullock, who will admit. She does agree with nephrology and cardiology consult. Heparin has been started. I did review and agree with PA findings. This includes all diagnostic interpretation and treatment plan. (Ricardo Watkins) Chest Pain MDM <Mendez Olivier - Last Filed: 03/20/18 09:17> <Ricardo Watkins - Last Filed: 03/20/18 09:42> - [facility] 87-year-old male presented for chest pain. Patient has unstable angina. Patient does have mild elevated troponin may be partially related to his renal function. No acute changes an EKG. Patient will be admitted on heparin, cardiology evaluation. Patient is stable at this time. Patient does have noted elevated creatinine from baseline. (Mendez Olivier) Disposition <Mendez Olivier - Last Filed: 03/20/18 09:17> <Ricardo Watkins - Last Filed: 03/20/18 09:42> Clinical Impression: Acute on chronic renal failure, Chest pain Disposition: ADMITTED IP TO THIS HOSP Condition: Fair Referrals: Alpesh Gonzalez MD [Primary Care Provider] - 1-2 days
--- NOTE | 2018-03-20 08:08 | XR ---
EXAMINATION TYPE: XR chest 2V DATE OF EXAM: 03/20/2018 HISTORY: Chest Pain. REFERENCE: Previous study dated 02/11/2018. FINDINGS: There has been a midline sternotomy. The heart is enlarged. There are chronic pleural paren chymal changes present at both lung bases. I do not see evidence of superimposed pneumonia or edema. There is mild rotation present on the film. There is blunting of the left CP angle which is chronic. IMPRESSION: CHRONIC CHANGES WITHOUT EVIDENCE OF ACUTE INTRATHORACIC DISEASE.
[2018-03-20 08:27] LABS: Basophils % (A) 1 %; Eosinophils # (A) 0.1 k/uL (0-0.7); Eosinophils % (A) 2 %; HCT 38.3 % (39.0-53.0); HGB 12.4 gm/dL (13.0-17.5); Lymphocytes # (A) 0.6 k/uL (1.0-4.8); Lymphocytes % (A) 8 %; MCHC 32.3 g/dL (31.0-37.0); MCV 92.9 fL (80.0-100.0); Mean Platelet Volume 7.8; Monocytes # (A) 0.6 k/uL (0-1.0); Monocytes % (A) 7 %; Neutrophils % (A) 80 %; Platelet Count 219 k/uL (150-450); RBC 4.13 m/uL (4.30-5.90); RDW 15.2 % (11.5-15.5); WBC 7.5 k/uL (3.8-10.6)
[2018-03-20 08:35] LABS: Partial Thromboplastin Time 24.2 sec (22.0-30.0); Prothrombin Time 10.6 sec (9.0-12.0)
[2018-03-20 08:49] LABS: Albumin 3.6 g/dL (3.5-5.0); Calcium 9.3 mg/dL (8.4-10.2); Magnesium 2.3 mg/dL (1.6-2.3); Potassium 4.9 mmol/L (3.5-5.1); Total Protein 6.2 g/dL (6.3-8.2)
[2018-03-20 09:07] LABS: Creatine Kinase MB 5.3 ng/mL (0.0-2.4)
[2018-03-20 09:12] LABS: Troponin I 0.501 ng/mL (0.000-0.034)
[2018-03-20] MEDS ORDERED: HEPARIN SODIUM,PORCINE 5,000 UNIT/ML 1 ML VIAL IV ONE (09:15)
[2018-03-20] MEDS: HEPARIN SOD,PORK IN 0.45% NACL 25,000 UNIT in 0.45% NACL 1 250ML.BAG IV SCH (09:31)
[2018-03-20] MEDS: SODIUM CHLORIDE 0.9% 1,000 ML IV SCH ×2 (09:31→21:49)
[2018-03-20 14:54] LABS: Creatine Kinase MB 9.5 ng/mL (0.0-2.4)
[2018-03-20 15:02] LABS: Troponin I 2.56 ng/mL (0.000-0.034)
[2018-03-20 16:52] LABS: Glucose,Whole Blood 78 mg/dL (75-99)
[2018-03-20 18:09] VITALS: BMI 21.2
[2018-03-20] MEDS ORDERED: FUROSEMIDE 20 MG TAB PO SCH (18:45)
[2018-03-20] MEDS ORDERED: ALLOPURINOL 300 MG TAB PO SCH (18:45)
[2018-03-20] MEDS: CLOPIDOGREL 75 MG TAB PO SCH (19:09)
[2018-03-20 20:59] LABS: Glucose,Whole Blood 144 mg/dL (75-99)
[2018-03-20 21:22] LABS: Creatine Kinase MB 9.3 ng/mL (0.0-2.4)
[2018-03-20 21:31] LABS: Troponin I 2.35 ng/mL (0.000-0.034)
[2018-03-20] MEDS: METOPROLOL TARTRATE 25 MG TAB PO SCH (21:48)
--- NOTE | 2018-03-20 22:35 | P.HPIM ---
History of Present Illness H&P Date: 03/20/18 Chief Complaint: Chest pain This is an 87 year all gentleman patient of Dr. Gonzalez, and Dr. Zenia Correa S/P Kunal new to the practice. She has underlying history of CAD, diabetes mellitus , hypertension, admitted emergency room secondary to significant chest pain that woke the patient up and start night he suffered with this chest pain, he took 5 tablets of sublingual nitroglycerin without any relief. Patient was subsequently seen in emergency room. Secondary to chest pressure without any radiation, however this is intense according patient, distant not accompanied by any cough no shortness of breath, no edema, no hemoptysis. Patient denies any fever or chills, she he was last admitted from her facility 02/10/2018, He has underlying history of CABG in 2007 and a cardiac stent in 2006, CK D stage III, atrial fibrillation, hypothyroidism, severe hearing loss. He was last here admitted 02/13/2018 for chest pain, for which she was started on as a bite 60 mg daily, Nitrostat when necessary, aspirin daily, and Lopressor 25 mg twice a day. Glucotrol 5 mg twice a day has been discontinued In the emergency room EKG shows nonspecific ST-T wave changes, normal sinus rhythm. Patient has a creatinine of 3.19, for which cardiac catheterization or imaging studies 40 heart cannot be pursued without any consequence of the kidneys, admitting creatinine are at 3.19, nightly of 64. His troponin on entry was 0.5, second set of troponin 2.35 cardiology has been consulted, patient's chest pain free with Nitropaste, IV heparin infusing O2 by nasal cannula Review of Systems Constitutional: Reports as per HPI, Denies anorexia, Denies chills, Denies chronic headaches, Denies chronic pain, Denies daytime sleepiness, Denies fatigue, Denies fever, Denies lethargy, Denies malaise, Denies night sweats, Denies poor appetite, Denies sweats, Denies weakness, Denies weight gain, Denies weight loss Ears, nose, mouth and throat: Reports as per HPI, Denies ant. neck pain, Denies bleeding gums, Denies dental pain, Denies dysphagia, Denies epistaxis, Denies headache, Denies hoarseness, Denies mouth pain, Denies nasal congestion, Denies nasal discharge, Denies neck fullness/pressure, Denies neck lump, Denies nose pain, Denies odynophagia, Denies post-nasal drip, Denies sinus pain, Denies sinus pressure, Denies swelling in mouth, Denies swelling in throat, Denies sore throat, Denies vertigo, Denies voice changes Cardiovascular: Reports chest pain, Denies as per HPI, Denies claudication, Denies decreased exercise tolerance, Denies dyspnea on exertion, Denies edema, Denies high blood pressure, Denies irregular heart beat, Denies leg edema, Denies lightheadedness, Denies orthopnea, Denies palpitations, Denies paroxysmal nocturnal dyspnea, Denies phlebitis, Denies rapid heart beat, Denies shortness of breath, Denies syncope Respiratory: Reports as per HPI, Denies congestion, Denies cough, Denies cough with sputum, Denies dyspnea, Denies excessive sputum, Denies hemoptysis, Denies home oxygen, Denies pain, Denies pain on inspiration, Denies pleurisy, Denies respiratory infections, Denies sleep apnea, Denies snoring, Denies wheezing Gastrointestinal: Reports as per HPI, Denies abdominal pain, Denies belching, Denies bloating, Denies BRBPR, Denies change in bowel habits, Denies coffee ground emesis, Denies constipation, Denies diarrhea, Denies dyspepsia, Denies early satiety, Denies excessive gas, Denies heartburn, Denies hematemesis, Denies hematochezia, Denies indigestion, Denies jaundice, Denies lactose intolerance, Denies loss of appetite, Denies melena, Denies nausea, Denies vomiting Genitourinary: Reports as per HPI Musculoskeletal: Reports as per HPI, Reports gait dysfunction, Reports morning stiffness Integumentary: Reports as per HPI, Denies acne, Denies boils, Denies brittle nails, Denies change in hair/nails, Denies color changes, Denies darkening of skin, Denies depigmentation, Denies dryness, Denies foot/leg ulcers, Denies growths, Denies hirsutism, Denies lesions, Denies onychomycosis, Denies pruritus , Denies rash, Denies sores, Denies striae, Denies unusual bruising, Denies wounds Neurological: Reports as per HPI, Reports hearing difficulties, Reports memory loss (Short-term) Psychiatric: Reports as per HPI Endocrine: Reports as per HPI Past Medical History Past Medical History: Atrial Fibrillation, Coronary Artery Disease (CAD), COPD, Diabetes Mellitus, Hyperlipidemia, Hypertension, Liver Disease, Renal Disease, Thyroid Disorder Additional Past Medical History / Comment(s): NIDDM type II, 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 History of Any Multi-Drug Resistant Organisms: None Reported Past Surgical History: Cholecystectomy, Coronary Bypass/CABG Additional Past Surgical History / Comment(s): 2009 coronary bypass-2 vessel, PCI with stents-, ERCP, colonoscopy with polypectomy, umbilical hernia repair, bilateral cataract removals with lens implants. Past Anesthesia/Blood Transfusion Reactions: No Reported Reaction Smoking Status: Former smoker - Past Family History Mother Family Medical History: Cancer Additional Family Medical History / Comment(s): Mother had multiple myeloma. Brother(s) Family Medical History: Cancer Additional Family Medical History / Comment(s): Brother had lung cancer. Medications and Allergies Home Medications Medication Instructions Recorded Confirmed Type Allopurinol [Zyloprim] 300 mg PO Q48H 02/10/18 03/20/18 History Cholecalciferol (Vitamin D3) 2,000 unit PO DAILY 02/10/18 03/20/18 History [Vitamin D3] Clopidogrel [Plavix] 75 mg PO DAILY 02/10/18 03/20/18 History Furosemide [Lasix] 20 mg PO Q48H 02/10/18 03/20/18 History Levothyroxine Sodium [Synthroid] 25 mcg PO DAILY 02/10/18 03/20/18 History predniSONE 5 mg PO DAILY 02/10/18 03/20/18 History Isosorbide Mononitrate ER [Imdur] 60 mg PO DAILY #90 tab.er.24h 02/13/18 Rx Metoprolol Tartrate [Lopressor] 25 mg PO BID #180 tab 02/13/18 03/20/18 Rx Nitroglycerin Sl Tabs [Nitrostat] 0.4 mg SUBLINGUAL Q5M PRN #25 tab 02/13/18 Rx Allergies Allergy/AdvReac Type Severity Reaction Status Date / Time Iodinated Contrast- Oral and AdvReac STAGE 4 Verified 03/20/18 07:54 IV Dye RENAL FAILURE shellfish derived [Shrimp] AdvReac Nausea & Verified 03/20/18 07:54 Vomiting Physical Exam Vitals: Vital Signs Temp Pulse Resp BP Pulse Ox 03/20/18 09:00 80 17 118/66 100 03/20/18 08:00 79 18 143/70 100 03/20/18 07:10 97.8 F 86 22 143/70 94 L Intake and Output 03/19/18 03/20/18 03/20/18 22:59 06:59 14:59 Other: Weight 61.689 kg - Constitutional General appearance: cooperative, no acute distress - EENT Eyes: anicteric sclerae, EOMI, PERRLA, dentition normal, normal appearance ENT: hard of hearing, NA/AT, normal oropharynx - Neck Neck: no lymphadenopathy, normal ROM, no other, no rigidity, no stridor, no thyromegaly - Respiratory Respiratory: bilateral: CTA, negative: diminished, dullness, rales, rhonchi - Cardiovascular Rhythm: regular Heart sounds: normal: S1, S2 Abnormal Heart Sounds: no systolic murmur, no diastolic murmur, no rub, no S3 Gallop, no S4 Gallop, no click, no other - Gastrointestinal General gastrointestinal: normal bowel sounds, soft - Integumentary Integumentary: no calor, no cellulitis, no cyanotic, no decreased turgor, no flushed, no jaundiced, no normal, normal turgor, no pale, no rash, no ulcer - Neurologic Neurologic: CNII-XII intact - Musculoskeletal Musculoskeletal: gait normal, strength equal bilaterally - Psychiatric Psychiatric: A&O x's 3, appropriate affect, intact judgment & insight Results CBC & Chem 7: 03/20/18 07:45 03/20/18 07:45 Labs: Abnormal Lab Results - Last 24 Hours (Table) 03/20/18 03/20/18 03/20/18 Range/Units 07:45 07:45 07:45 RBC 4.13 L (4.30-5.90) m/uL Hgb 12.4 L (13.0-17.5) gm/dL Hct 38.3 L (39.0-53.0) % Lymphocytes # 0.6 L (1.0-4.8) k/uL Chloride 109 H (98-107) mmol/L BUN 64 H (9-20) mg/dL Creatinine 3.19 H (0.66-1.25) mg/dL Glucose 142 H (74-99) mg/dL CK-MB (CK-2) 5.3 H (0.0-2.4) ng/mL Troponin I 0.501 H* (0.000-0.034) ng/mL Total Protein 6.2 L (6.3-8.2) g/dL Laboratory Results WBC 7.5 k/uL (3.8-10.6) 03/20/18 07:45 RBC 4.13 m/uL (4.30-5.90) L 03/20/18 07:45 Hgb 12.4 gm/dL (13.0-17.5) L 03/20/18 07:45 Hct 38.3 % (39.0-53.0) L 03/20/18 07:45 MCV 92.9 fL (80.0-100.0) 03/20/18 07:45 MCH 30.0 pg (25.0-35.0) 03/20/18 07:45 MCHC 32.3 g/dL (31.0-37.0) 03/20/18 07:45 RDW 15.2 % (11.5-15.5) 03/20/18 07:45 Plt Count 219 k/uL (150-450) 03/20/18 07:45 Neutrophils % 80 % 03/20/18 07:45 Lymphocytes % 8 % 03/20/18 07:45 Monocytes % 7 % 03/20/18 07:45 Eosinophils % 2 % 03/20/18 07:45 Basophils % 1 % 03/20/18 07:45 Neutrophils # 6.0 k/uL (1.3-7.7) 03/20/18 07:45 Lymphocytes # 0.6 k/uL (1.0-4.8) L 03/20/18 07:45 Monocytes # 0.6 k/uL (0-1.0) 03/20/18 07:45 Eosinophils # 0.1 k/uL (0-0.7) 03/20/18 07:45 Basophils # 0.0 k/uL (0-0.2) 03/20/18 07:45 PT 10.6 sec (9.0-12.0) 03/20/18 07:45 INR 1.0 (<1.2) 03/20/18 07:45 APTT 61.6 sec (22.0-30.0) H 03/20/18 16:01 Sodium 141 mmol/L (137-145) 03/20/18 07:45 Potassium 4.9 mmol/L (3.5-5.1) 03/20/18 07:45 Chloride 109 mmol/L (98-107) H 03/20/18 07:45 Carbon Dioxide 22 mmol/L (22-30) 03/20/18 07:45 Anion Gap 10 mmol/L 03/20/18 07:45 BUN 64 mg/dL (9-20) H 03/20/18 07:45 Creatinine 3.19 mg/dL (0.66-1.25) H 03/20/18 07:45 Est GFR (CKD-EPI)AfAm 19 (>60 ml/min/1.73 sqM) 03/20/18 07:45 Est GFR (CKD-EPI)NonAf 16 (>60 ml/min/1.73 sqM) 03/20/18 07:45 Glucose 142 mg/dL (74-99) H 03/20/18 07:45 POC Glucose (mg/dL) 144 mg/dL (75-99) H 03/20/18 20:57 POC Glu [employer] Ida Schofield 03/20/18 20:57 Calcium 9.3 mg/dL (8.4-10.2) 03/20/18 07:45 Magnesium 2.3 mg/dL (1.6-2.3) 03/20/18 07:45 Total Bilirubin 1.0 mg/dL (0.2-1.3) 03/20/18 07:45 AST 25 U/L (17-59) 03/20/18 07:45 ALT 29 U/L (21-72) 03/20/18 07:45 Alkaline Phosphatase 84 U/L (38-126) 03/20/18 07:45 Total Creatine Kinase 119 U/L (55-170) 03/20/18 19:57 CK-MB (CK-2) 9.3 ng/mL (0.0-2.4) H 03/20/18 19:57 CK-MB (CK-2) Rel Index 7.8 03/20/18 19:57 Troponin I 2.350 ng/mL (0.000-0.034) H* 03/20/18 19:57 NT-Pro-B Natriuret Pep 742 pg/mL 03/20/18 07:45 Total Protein 6.2 g/dL (6.3-8.2) L 03/20/18 07:45 Albumin 3.6 g/dL (3.5-5.0) 03/20/18 07:45 Thrombosis Risk Factor Assmnt - DVT/VTE Prophylaxis DVT/VTE Prophylaxis: Pharmacologic Prophylaxis ordered - Choose All That Apply Each Risk Factor Represents 3 Points: Age 75 years or older Thrombosis Risk Factor Assessment Total Risk Factor Score: 3 Thrombosis Risk Factor Assessment Level: Moderate Risk Assessment and Plan Plan: 1. Acute non-STEMI presenting with elevated troponin, nonspecific EKG changes , symptoms not relieved with nitroglycerin, and long acting nitrates. Patient is currently on IV heparin, aspirin, beta blockers, oxygen consult was made with cardiology and nephrology. He is at risk for further renal injury secondary to underlying CK D stage III to 4, if cardiac catheterization for cardiac intervention would be administered 2. CK D stage IV, creatinine between 2.212 3.19, patient is going to be receiving IV hydration, cautioned regarding fluid overload, nephrology to see, nephrotoxins to be avoided, hypotension to be avoided 3. Hypothyroidism on levothyroxine 25 g daily 4. Gout on allopurinol 300 mg every 48 hours 5. BPH, unknown whether patient has no intact pathologies, postvoid residuals can be done, however we'll going to obtain renal ultrasound. Tibial with for hydronephrosis 6. Hyperlipidemia Lipitor 40 mg will be started his previous LDL was 78 however non-Q in view of an STEMI statins would be initiated next 7. Mild protein calorie malnutrition 8. CODE STATUS DO NOT RESUSCITATE 9. Diabetes mellitus type 2, hemoglobin A1c will be obtained 10. Borderline anemia of chronic disease, hemoglobin ranges between 11.7-12.4 11. CAD with prior CABG in the past, stent to the proximal RCA 2007 with subsequent 2 vessel bypass grafting S BG 2 OM, SVG to PDA 2009 03. COPD him a has chronic dyspnea on exertion, on prednisone 5 mg daily
[2018-03-21 06:04] LABS: Glucose,Whole Blood 106 mg/dL (75-99)
[2018-03-21 06:28] LABS: Basophils % (A) 0 %; Eosinophils # (A) 0.2 k/uL (0-0.7); Eosinophils % (A) 2 %; HCT 33.2 % (39.0-53.0); HGB 11.1 gm/dL (13.0-17.5); Lymphocytes # (A) 0.9 k/uL (1.0-4.8); Lymphocytes % (A) 14 %; MCH 31.1 pg (25.0-35.0); MCHC 33.3 g/dL (31.0-37.0); MCV 93.4 fL (80.0-100.0); Mean Platelet Volume 7.5; Monocytes # (A) 0.5 k/uL (0-1.0); Monocytes % (A) 8 %; Neutrophils % (A) 74 %; Platelet Count 198 k/uL (150-450); RBC 3.56 m/uL (4.30-5.90); RDW 15.3 % (11.5-15.5); WBC 6.7 k/uL (3.8-10.6)
[2018-03-21] MEDS: LEVOTHYROXINE 25 MCG TAB PO SCH (07:01)
[2018-03-21 07:08] LABS: Calcium 8.5 mg/dL (8.4-10.2); Potassium 4.3 mmol/L (3.5-5.1)
[2018-03-21] MEDS: NITROGLYCERIN SL TABS 0.4 MG TAB SUBLINGUAL PRN (08:22)
[2018-03-21] MEDS: HEPARIN SOD,PORK IN 0.45% NACL 25,000 UNIT in 0.45% NACL 1 250ML.BAG IV SCH ×2 (08:24→20:27)
[2018-03-21] MEDS: predniSONE 5 MG TAB PO SCH (08:29)
[2018-03-21] MEDS: CHOLECALCIFEROL 1,000 UNIT TAB PO SCH (08:29)
[2018-03-21] MEDS: ATORVASTATIN 40 MG TAB PO SCH (08:29)
[2018-03-21] MEDS: ISOSORBIDE MONONITRATE ER 60 MG TAB.ER.24H PO SCH (08:29)
[2018-03-21] MEDS: METOPROLOL TARTRATE 25 MG TAB PO SCH (08:29)
[2018-03-21] MEDS: CLOPIDOGREL 75 MG TAB PO SCH (08:30)
[2018-03-21] MEDS: ALLOPURINOL 300 MG TAB PO SCH (08:30)
[2018-03-21] MEDS: FUROSEMIDE 20 MG TAB PO SCH (08:30)
[2018-03-21] MEDS ORDERED: ASPIRIN 325 MG TAB PO SCH (09:00)
--- NOTE | 2018-03-21 09:05 | P.CRDCN ---
History of Present Illness Consult date: 03/21/18 Requesting physician: Alpesh Gonzalez Consult reason: chest pain Chief complaint: Chest pain History of present illness: This is an 87-year-old gentleman who follows regularly with Dr. Knutson in the office. He has a known history of coronary artery disease with prior bypass surgery, patient underwent two-vessel bypass grafting with an SVG to the OM and SVG to the PDA in 2008 prior to that he had RCA stenting in 2007. hypertension, hyperlipidemia, diabetes, chronic kidney disease. He was just recently in the hospital in February of this year with a non-Q-wave myocardial infarction decision was made at that time to treat him medically. He presents again to the hospital on this occasion with symptoms of severe mid to left chest discomfort. He states that the discomfort kept him up all night long. EKG on arrival here showed a normal sinus rhythm with mild ST depression noted in the lateral leads. Chest x-ray showed chronic changes without evidence of acute intrathoracic disease. Blood pressure 142/70 with a heart rate in the 80s , 94% on room air. White blood cell count of 6.7, hemoglobin 11.1, platelet count 198. Sodium 142, potassium 4.3, BUN 52, creatinine 2.5. On admission the BUN of 64 and creatinine was 3.1. Troponin 0.5, 2.5, 2.3. His troponins in May were in the range of 0.03. Creatinine in May 2.2. At the time of my examination this morning, patient still having some mild chest discomfort although he states that it has subsided substantially. He also has a persistent cough this morning. Overall he states that he just feels awful. 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 History of Any Multi-Drug Resistant Organisms: None Reported Past Surgical History: Cholecystectomy, Coronary Bypass/CABG Additional Past Surgical History / Comment(s): 2009 coronary bypass-2 vessel, PCI with stents-, ERCP, colonoscopy with polypectomy, umbilical hernia repair, bilateral cataract removals with lens implants. Past Anesthesia/Blood Transfusion Reactions: No Reported Reaction Smoking Status: Former smoker - Past Family History Mother Family Medical History: Cancer Additional Family Medical History / Comment(s): Mother had multiple myeloma. Brother(s) Family Medical History: Cancer Additional Family Medical History / Comment(s): Brother had lung cancer. Medications and Allergies Home Medications Medication Instructions Recorded Confirmed Type Allopurinol [Zyloprim] 300 mg PO Q48H 02/10/18 03/20/18 History Cholecalciferol (Vitamin D3) 2,000 unit PO DAILY 02/10/18 03/20/18 History [Vitamin D3] Clopidogrel [Plavix] 75 mg PO DAILY 02/10/18 03/20/18 History Furosemide [Lasix] 20 mg PO Q48H 02/10/18 03/20/18 History Levothyroxine Sodium [Synthroid] 25 mcg PO DAILY 02/10/18 03/20/18 History predniSONE 5 mg PO DAILY 02/10/18 03/20/18 History Isosorbide Mononitrate ER [Imdur] 60 mg PO DAILY #90 tab.er.24h 02/13/18 Rx Metoprolol Tartrate [Lopressor] 25 mg PO BID #180 tab 02/13/18 03/20/18 Rx Nitroglycerin Sl Tabs [Nitrostat] 0.4 mg SUBLINGUAL Q5M PRN #25 tab 02/13/18 Rx Allergies Allergy/AdvReac Type Severity Reaction Status Date / Time Iodinated Contrast- Oral and AdvReac STAGE 4 Verified 03/20/18 07:54 IV Dye RENAL FAILURE shellfish derived [Shrimp] AdvReac Nausea & Verified 03/20/18 07:54 Vomiting Physical Exam Vitals: Vital Signs Temp Pulse Pulse Resp BP BP Pulse Ox 03/21/18 04:00 98.2 F 75 18 118/63 95 03/21/18 00:00 98.2 F 79 16 104/59 100 03/20/18 19:53 77 18 136/67 99 03/20/18 16:50 97.2 F L 68 17 138/61 100 03/20/18 16:00 97.8 F 73 80 17 121/75 98 03/20/18 15:00 73 20 108/67 98 03/20/18 14:00 70 17 104/77 95 03/20/18 13:00 70 18 107/78 98 03/20/18 12:00 79 20 118/68 99 03/20/18 11:00 71 15 105/61 100 03/20/18 10:00 77 15 126/62 100 03/20/18 09:00 80 17 118/66 100 Intake and Output 03/20/18 03/21/18 03/21/18 22:59 06:59 14:59 Intake Total 149.637 20 Output Total 720 600 400 Balance -570.363 -580 -400 Intake: IV 95 20 Invasive Line 1 20 20 Sodium Chloride 0.9% 1, 75 000 ml @ 75 mls/hr IV . [id number] [facility] Rx#:[id number] Intake, IV Titration 54.637 Amount Heparin Sod,Pork in 0.45% 54.637 NaCl 25,000 unit In 0.45 % NaCl 1 250ml.bag @ 12 UNITS/KG/HR 7.4 mls/hr IV .Q24H [facility] Rx#:[id number] Output: Urine 500 600 400 Post Void Residual 220 Other: Voiding Method Urinal Urinal # Voids 2 Weight 61.689 kg 61 kg PHYSICAL EXAMINATION: GENERAL: 87-year-old gentleman in no acute distress at the time of my examination HEENT: Head is atraumatic, normocephalic. Pupils equal, round. Sclera anicteric. Conjunctiva are clear. Mucous membranes of the mouth are moist. Neck is supple. There is no elevated jugular venous pressure.No Carotid bruit is heard. HEART EXAMINATION: Heart S1, S2 systolic murmur heard. CHEST EXAMINATION: Lungs reveal fine rales to bilateral bases. ABDOMEN: Soft, nontender. Bowel sounds are heard. No organomegaly noted. EXTREMITIES: 2+ peripheral pulses with no evidence of peripheral edema and no calf tenderness noted. NEUROLOGIC patient is awake, alert and oriented X3. . Results 03/21/18 05:54 03/21/18 05:54 Cardiac Enzymes 03/20/18 03/20/18 03/20/18 Range/Units 07:45 07:45 14:00 AST 25 (17-59) U/L CK-MB (CK-2) 5.3 H 9.5 H (0.0-2.4) ng/mL Troponin I 0.501 H* 2.560 H* (0.000-0.034) ng/mL 03/20/18 Range/Units 19:57 AST (17-59) U/L CK-MB (CK-2) 9.3 H (0.0-2.4) ng/mL Troponin I 2.350 H* (0.000-0.034) ng/mL Coagulation 03/20/18 03/20/18 03/21/18 Range/Units 07:45 16:01 05:54 PT 10.6 (9.0-12.0) sec APTT 24.2 61.6 H 57.1 H (22.0-30.0) sec Lipids 03/21/18 Range/Units 05:54 Triglycerides 87 (<150) mg/dL Cholesterol 135 (<200) mg/dL HDL Cholesterol 43 (40-60) mg/dL CBC 03/20/18 03/21/18 Range/Units 07:45 05:54 WBC 7.5 6.7 (3.8-10.6) k/uL RBC 4.13 L 3.56 L (4.30-5.90) m/uL Hgb 12.4 L 11.1 L (13.0-17.5) gm/dL Hct 38.3 L 33.2 L (39.0-53.0) % Plt Count 219 198 (150-450) k/uL Comprehensive Metabolic Panel 03/20/18 03/21/18 Range/Units 07:45 05:54 Sodium 141 142 (137-145) mmol/L Potassium 4.9 4.3 (3.5-5.1) mmol/L Chloride 109 H 116 H (98-107) mmol/L Carbon Dioxide 22 20 L (22-30) mmol/L BUN 64 H 52 H (9-20) mg/dL Creatinine 3.19 H 2.51 H (0.66-1.25) mg/dL Glucose 142 H 109 H (74-99) mg/dL Calcium 9.3 8.5 (8.4-10.2) mg/dL AST 25 (17-59) U/L ALT 29 (21-72) U/L Alkaline Phosphatase 84 (38-126) U/L Total Protein 6.2 L (6.3-8.2) g/dL Albumin 3.6 (3.5-5.0) g/dL Current Medications Generic Name Dose Route Start Last Admin Trade Name Stephenie PRN Reason Stop Dose Admin Allopurinol 300 mg 03/21/18 09:00 Zyloprim PO Q48H [facility] Aspirin 325 mg 03/21/18 09:00 Aspirin PO DAILY [facility] Atorvastatin Calcium 40 mg 03/21/18 09:00 Lipitor PO DAILY [facility] Cholecalciferol 2,000 unit 03/21/18 12:00 Vitamin D3 PO 1200 [facility] Clopidogrel Bisulfate 75 mg 03/20/18 18:45 03/20/18 19:09 Plavix PO 75 mg DAILY [facility] Administration Furosemide 20 mg 03/21/18 09:00 Lasix PO Q48H [facility] Sodium Chloride 1,000 mls @ 75 mls/hr 03/20/18 09:15 03/20/18 21:49 Saline 0.9% IV 75 mls/hr .[id number] [facility] Administration Heparin Sodium/Sodium Chloride 250 mls @ 7.4 mls/hr 03/20/18 09:15 03/20/18 16:54 25,000 unit/ Sodium Chloride IV 12 units/kg/hr .Q24H [facility] 7.4 mls/hr Titration Protocol 12 UNITS/KG/HR Isosorbide Mononitrate 60 mg 03/21/18 09:00 Imdur PO DAILY [facility] Levothyroxine Sodium 25 mcg 03/21/18 06:30 03/21/18 07:01 Synthroid PO 25 mcg 0630 [facility] Administration Metoprolol Tartrate 25 mg 03/20/18 21:00 03/20/18 21:48 Lopressor PO 25 mg BID [facility] Administration Nitroglycerin 0.4 mg 03/20/18 09:15 Nitrostat SUBLINGUAL Q5M PRN Chest Pain Prednisone 5 mg 03/21/18 09:00 PO DAILY [facility] Intake and Output 03/20/18 03/21/18 03/21/18 22:59 06:59 14:59 Intake Total 149.637 20 Output Total 720 600 400 Balance -570.363 -580 -400 Intake: IV 95 20 Invasive Line 1 20 20 Sodium Chloride 0.9% 1, 75 000 ml @ 75 mls/hr IV . [id number] [facility] Rx#:[id number] Intake, IV Titration 54.637 Amount Heparin Sod,Pork in 0.45% 54.637 NaCl 25,000 unit In 0.45 % NaCl 1 250ml.bag @ 12 UNITS/KG/HR 7.4 mls/hr IV .Q24H [facility] Rx#:[id number] Output: Urine 500 600 400 Post Void Residual 220 Other: Voiding Method Urinal Urinal # Voids 2 Weight 61.689 kg 61 kg 03/21/18 05:54 03/21/18 05:54 EKG Interpretations (text) EKG shows a normal sinus rhythm with mild ST depression noted in the lateral leads. Assessment and Plan Plan: Assessment and plan #1 non-ST elevation myocardial infarction #2 known history of coronary artery disease with prior RCA stenting in 2007, subsequent 2 vessel bypass with SVG to the OM and SVG to PDA in 2008. #3 hypertension #4 hyperlipidemia #5 hypothyroidism #6 gout #7 acute on chronic kidney disease Plan We will obtain an echocardiogram with Doppler study. We will also increase the dose of beta jadyn and continue with Nitropaste and IV heparin. Decrease aspirin to [address] MARYCRUZ Syed did have a discussion with the patient as well as Dr. Knutson, the decision was made to continue maximal medical therapy at this time. Dr. Syed will also contact the daughter and speak with her in detail regarding the patient. Further recommendations to follow. DNP note has been reviewed, I agree with a documented findings and plan of care. Patient was seen and examined.
--- NOTE | 2018-03-21 09:20 | P.NPCON ---
History of Present Illness - Reason for Consult acute renal failure, chronic renal failure - History of Present Illness Reason for consultation: Acute kidney injury on chronic kidney disease History of present illness: Patient is a 87-year-old male seen in renal consultation for acute kidney injury on chronic kidney disease. Patient has chronic kidney disease stage IV secondary to nephrosclerosis with baseline creatinine near 2.2. Creatinine was 3.19 on admission and is 2.51 today. She presented to the hospital with chest pain which has been going on pretty constantly since one day prior to admission. Currently the patient is sitting up in bed and is complaining of severe chest pain. He denies any vomiting or diarrhea. Patient states the pain is mostly mid chest and describes it as sharp. He denies any pain in his arm. Patient does have history of coronary artery disease with history of CABG. Oral intake has been fair. He is currently maintained on normal saline at 75 mL an hour. Admits to good urine output. No hematuria or dysuria. Vital signs are stable. General: The patient appeared well nourished and normally developed. HEENT: Head exam is unremarkable. Neck is without jugular venous distension. LUNGS: Lungs are clear to auscultation and percussion. Breath sounds decreased. HEART: Rate and Rhythm are regular. First and second heart sounds normal. No murmurs, rubs or gallops. ABDOMEN: Abdominal exam reveals normal bowel sounds. Non-tender and non- distended. No evidence of peritonitis. EXTREMITITES: No clubbing, cyanosis, or edema. Past Medical History Past Medical History: Atrial Fibrillation, Coronary Artery Disease (CAD), COPD, Diabetes Mellitus, Hyperlipidemia, Hypertension, Liver Disease, Renal Disease, Thyroid Disorder Additional Past Medical History / Comment(s): NIDDM type II, gout in great toes , hiatal hernia, benign colon polyps, hemorrhoids, renal disease stage III, paroxysmal afib, 2008 pancreatitis, hypothyroid, bilateral TELLER wears hearing aides, schrapnel R thigh/femur. History of Any Multi-Drug Resistant Organisms: None Reported Past Surgical History: Cholecystectomy, Coronary Bypass/CABG Additional Past Surgical History / Comment(s): 2009 coronary bypass-2 vessel, PCI with stents-2005/2007, ERCP, colonoscopy with polypectomy, umbilical hernia repair, bilateral cataract removals with lens implants. Past Anesthesia/Blood Transfusion Reactions: No Reported Reaction Smoking Status: Former smoker - Past Family History Mother Family Medical History: Cancer Additional Family Medical History / Comment(s): Mother had multiple myeloma. Brother(s) Family Medical History: Cancer Additional Family Medical History / Comment(s): Brother had lung cancer. Medications and Allergies Home Medications Medication Instructions Recorded Confirmed Type Allopurinol [Zyloprim] 300 mg PO Q48H 02/10/18 03/20/18 History Cholecalciferol (Vitamin D3) 2,000 unit PO DAILY 02/10/18 03/20/18 History [Vitamin D3] Clopidogrel [Plavix] 75 mg PO DAILY 02/10/18 03/20/18 History Furosemide [Lasix] 20 mg PO Q48H 02/10/18 03/20/18 History Levothyroxine Sodium [Synthroid] 25 mcg PO DAILY 02/10/18 03/20/18 History predniSONE 5 mg PO DAILY 02/10/18 03/20/18 History Isosorbide Mononitrate ER [Imdur] 60 mg PO DAILY #90 tab.er.24h 02/13/18 Rx Metoprolol Tartrate [Lopressor] 25 mg PO BID #180 tab 02/13/18 03/20/18 Rx Nitroglycerin Sl Tabs [Nitrostat] 0.4 mg SUBLINGUAL Q5M PRN #25 tab 02/13/18 Rx Allergies Allergy/AdvReac Type Severity Reaction Status Date / Time Iodinated Contrast- Oral and AdvReac STAGE 4 Verified 03/20/18 07:54 IV Dye RENAL FAILURE shellfish derived [Shrimp] AdvReac Nausea & Verified 03/20/18 07:54 Vomiting Physical Exam Vitals: Vital Signs Temp Pulse Pulse Resp BP BP Pulse Ox 03/21/18 04:00 98.2 F 75 18 118/63 95 03/21/18 00:00 98.2 F 79 16 104/59 100 03/20/18 19:53 77 18 136/67 99 03/20/18 16:50 97.2 F L 68 17 138/61 100 03/20/18 16:00 97.8 F 73 80 17 121/75 98 03/20/18 15:00 73 20 108/67 98 03/20/18 14:00 70 17 104/77 95 03/20/18 13:00 70 18 107/78 98 03/20/18 12:00 79 20 118/68 99 03/20/18 11:00 71 15 105/61 100 03/20/18 10:00 77 15 126/62 100 Intake and Output 03/20/18 03/21/18 03/21/18 22:59 06:59 14:59 Intake Total 149.637 20 114.7 Output Total 720 600 400 Balance -570.363 -580 -285.3 Intake: IV 95 20 Invasive Line 1 20 20 Sodium Chloride 0.9% 1, 75 000 ml @ 75 mls/hr IV . [id number] [facility] Rx#:[id number] Intake, IV Titration 54.637 114.7 Amount Heparin Sod,Pork in 0.45% 54.637 114.7 NaCl 25,000 unit In 0.45 % NaCl 1 250ml.bag @ 12 UNITS/KG/HR 7.4 mls/hr IV .Q24H [facility] Rx#:[id number] Output: Urine 500 600 400 Post Void Residual 220 Other: Voiding Method Urinal Urinal # Voids 2 Weight 61.689 kg 61 kg Results - Lab Results Most recent lab results Calcium 8.5 mg/dL (8.4-10.2) 03/21/18 05:54 Magnesium 2.3 mg/dL (1.6-2.3) 03/20/18 07:45 03/21/18 05:54 03/21/18 05:54 Assessment and Plan Plan: Assessment: 1. Nonoliguric acute kidney injury mostly prerenal improving with IV hydration. Creatinine was 2.19 on admission and is down to 2.51 today. 2. Chronic kidney disease stage 4 with baseline creatinine near 2.2 secondary to nephrosclerosis. 3. Chest pain. Rule out cardiac etiology. Maintain on IV heparin. Cardiology following. 4. History of coronary artery disease status post CABG. 5. Metabolic acidosis secondary to acute kidney injury and IV fluids. 6. Hypertension with chronic kidney disease. Controlled. Plan: Maintain normal saline at 75 mL an hour. Follow-up renal ultrasound. Encouraged oral intake. Avoid nephrotoxins. Discussed with cardiology. No plans for intervention at this time. Repeat electrolytes in the morning. Thank you for the consultation. I will continue to follow patient with you during his hospital stay.
--- NOTE | 2018-03-21 09:37 | US ---
EXAMINATION TYPE: US kidneys/renal and bladder DATE OF EXAM: 03/21/2018 COMPARISON: Renal ultrasound December 29, 2012 CLINICAL HISTORY: RENAL FAILURE POST OBSTRUCTIVE UROPATHY. patient very nauseous and hunched over whi le sitting upright EXAM MEASUREMENTS: Right Kidney: 9.8 x 4.1 x 4.9 cm Left Kidney: 9.4 x 3.7 x 5.1 cm Right Kidney: No hydronephrosis or masses seen Left Kidney: No hydronephrosis or masses seen Bladder: not seen due to patient position Suboptimal study due to patient noncooperation for moving for proper positioning. Visualized portion of both kidneys show no gross hydronephrosis. No suspicious solid or cystic masses are seen on images saved. Bladder cannot be assessed due to patient's positioning and noncooperation. IMPRESSION: Suboptimal study without gross hydronephrosis identified bilaterally.
[2018-03-21] MEDS: SODIUM CHLORIDE 0.9% 1,000 ML IV SCH (11:25)
[2018-03-21 11:37] LABS: Glucose,Whole Blood 205 mg/dL (75-99)
[2018-03-21 17:08] LABS: Glucose,Whole Blood 158 mg/dL (75-99)
[2018-03-21 20:48] LABS: Glucose,Whole Blood 200 mg/dL (75-99)
[2018-03-21] MEDS: METOPROLOL TARTRATE 50 MG TAB PO SCH (22:17)
[2018-03-22] MEDS: NITROGLYCERIN SL TABS 0.4 MG TAB SUBLINGUAL PRN ×4 (02:51→06:49)
[2018-03-22 05:47] LABS: Glucose,Whole Blood 153 mg/dL (75-99)
[2018-03-22] MEDS: LEVOTHYROXINE 25 MCG TAB PO SCH (06:47)
[2018-03-22] MEDS: predniSONE 5 MG TAB PO SCH (09:04)
[2018-03-22] MEDS: ASPIRIN 81 MG PO SCH (09:04)
[2018-03-22] MEDS: ISOSORBIDE MONONITRATE ER 60 MG TAB.ER.24H PO SCH (09:04)
[2018-03-22] MEDS: CHOLECALCIFEROL 1,000 UNIT TAB PO SCH (09:04)
[2018-03-22] MEDS: METOPROLOL TARTRATE 50 MG TAB PO SCH ×2 (09:05→20:16)
[2018-03-22] MEDS: ATORVASTATIN 40 MG TAB PO SCH (09:05)
[2018-03-22] MEDS: CLOPIDOGREL 75 MG TAB PO SCH (09:05)
[2018-03-22 09:15] LABS: Calcium 8.8 mg/dL (8.4-10.2); Potassium 4.6 mmol/L (3.5-5.1)
[2018-03-22] MEDS ORDERED: MORPHINE SULFATE 2 MG/ML SYRINGE IVP PRN (10:20)
--- NOTE | 2018-03-22 10:37 | P.PN ---
Subjective Patient is seen in follow-up for acute kidney injury on chronic kidney disease. Patient has chronic kidney disease stage IV secondary to nephrosclerosis with baseline creatinine near 2.2. Renal function has been improving since admission. Patient states his chest pain has resolved as of this morning. Oral intake is fair. No vomiting or diarrhea. Admits to good urine output. Vital signs are stable. General: The patient appeared well nourished and normally developed. HEENT: Head exam is unremarkable. Neck is without jugular venous distension. LUNGS: Lungs are clear to auscultation and percussion. Breath sounds decreased. HEART: Rate and Rhythm are regular. First and second heart sounds normal. No murmurs, rubs or gallops. ABDOMEN: Abdominal exam reveals normal bowel sounds. Non-tender and non- distended. No evidence of peritonitis. EXTREMITITES: No clubbing, cyanosis, or edema. Objective - Vital Signs Vital signs: Vital Signs Temp 97.6 F 03/22/18 04:14 Pulse 72 03/22/18 04:14 Resp 18 03/22/18 04:14 BP 108/62 03/22/18 04:14 Pulse Ox 98 03/22/18 04:14 Intake & Output 03/21/18 03/22/18 03/22/18 18:59 06:59 18:59 Intake Total 486.7 89.17 60 Output Total 800 650 Balance -313.3 -560.83 60 Weight 61 kg Intake: Intake, IV Titration 114.7 89.17 Amount Heparin Sod,Pork in 0.45% 114.7 89.17 NaCl 25,000 unit In 0.45 % NaCl 1 250ml.bag @ 12 UNITS/KG/HR 7.4 mls/hr IV .Q24H [facility] Rx#:[id number] Oral 372 60 Output: Urine 800 650 Other: Voiding Method Urinal Urinal # Voids 2 - Labs CBC & Chem 7: 03/21/18 05:54 03/22/18 07:33 Labs: Abnormal Lab Results - Last 24 Hours (Table) 03/21/18 03/21/18 03/21/18 Range/Units 11:25 16:42 20:46 APTT (22.0-30.0) sec Chloride (98-107) mmol/L BUN (9-20) mg/dL Creatinine (0.66-1.25) mg/dL Glucose (74-99) mg/dL POC Glucose (mg/dL) 205 H 158 H 200 H (75-99) mg/dL 03/22/18 03/22/18 03/22/18 Range/Units 05:45 07:33 07:33 APTT 49.0 H (22.0-30.0) sec Chloride 113 H (98-107) mmol/L BUN 55 H (9-20) mg/dL Creatinine 2.38 H (0.66-1.25) mg/dL Glucose 163 H (74-99) mg/dL POC Glucose (mg/dL) 153 H (75-99) mg/dL Assessment and Plan Plan: Assessment: 1. Nonoliguric acute kidney injury mostly prerenal improving with IV hydration. Creatinine was 3.19 on admission and is down to 2.38 today. No evidence of hydronephrosis noted on renal ultrasound. 2. Chronic kidney disease stage 4 with baseline creatinine near 2.2 secondary to nephrosclerosis. 3. Chest pain. Rule out cardiac etiology. Maintained on IV heparin. Cardiology following. No plans for cardiac catheterization at this time. 4. History of coronary artery disease status post CABG. 5. Metabolic acidosis secondary to acute kidney injury and IV fluids. Better. 6. Hypertension with chronic kidney disease. Controlled. Plan: Hep-Lock IV fluids. Encouraged oral intake. Avoid nephrotoxins.
[2018-03-22 11:21] LABS: Glucose,Whole Blood 145 mg/dL (75-99)
--- NOTE | 2018-03-22 13:44 | P.PN ---
Subjective Progress Note Date: 03/22/18 Principal diagnosis: Non-Q-wave VA This is an 87-year-old gentleman who follows regularly with Dr. Knutson in the office. He has a known history of coronary artery disease with prior bypass surgery, patient underwent two-vessel bypass grafting with an SVG to the OM and SVG to the PDA in 2008 prior to that he had RCA stenting in 2007. hypertension, hyperlipidemia, diabetes, chronic kidney disease. He was just recently in the hospital in February of this year with a non-Q-wave myocardial infarction decision was made at that time to treat him medically. He presents again to the hospital on this occasion with symptoms of severe mid to left chest discomfort. He states that the discomfort kept him up all night long. EKG on arrival here showed a normal sinus rhythm with mild ST depression noted in the lateral leads. Chest x-ray showed chronic changes without evidence of acute intrathoracic disease. Blood pressure 142/70 with a heart rate in the 80s , 94% on room air. White blood cell count of 6.7, hemoglobin 11.1, platelet count 198. Sodium 142, potassium 4.3, BUN 52, creatinine 2.5. On admission the BUN of 64 and creatinine was 3.1. Troponin 0.5, 2.5, 2.3. His troponins in May were in the range of 0.03. Creatinine in May 2.2. At the time of my examination this morning, patient still having some mild chest discomfort although he states that it has subsided substantially. He also has a persistent cough this morning. Overall he states that he just feels awful. 03/22/2018 Patient was seen and examined this morning, he had several bouts of chest pain throughout the night starting at around 3 AM until this morning. He was given several nitroglycerin, most of which did not resolve his symptoms. Dr. MARYCRUZ Syed did have a discussion with the patient and his daughter at bedside today, the decision was made to maximize medical therapy and pain control. We will start the patient on morphine today. Objective - Vital Signs Vital signs: Vital Signs Temp 97.6 F 03/22/18 08:00 Pulse 70 03/22/18 08:00 Resp 18 03/22/18 08:00 BP 132/73 03/22/18 08:00 Pulse Ox 98 03/22/18 08:00 Intake & Output 03/21/18 03/22/18 03/22/18 18:59 06:59 18:59 Intake Total 486.7 89.17 60 Output Total 800 650 Balance -313.3 -560.83 60 Weight 61 kg Intake: Intake, IV Titration 114.7 89.17 Amount Heparin Sod,Pork in 0.45% 114.7 89.17 NaCl 25,000 unit In 0.45 % NaCl 1 250ml.bag @ 12 UNITS/KG/HR 7.4 mls/hr IV .Q24H [facility] Rx#:[id number] Oral 372 60 Output: Urine 800 650 Other: Voiding Method Urinal Urinal Urinal # Voids 2 - Exam PHYSICAL EXAMINATION: GENERAL: 87-year-old gentleman in no acute distress at the time of my examination HEENT: Head is atraumatic, normocephalic. Pupils equal, round. Sclera anicteric. Conjunctiva are clear. Mucous membranes of the mouth are moist. Neck is supple. There is no elevated jugular venous pressure.No Carotid bruit is heard. HEART EXAMINATION: Heart S1, S2 systolic murmur heard. CHEST EXAMINATION: Lungs reveal fine rales to bilateral bases. ABDOMEN: Soft, nontender. Bowel sounds are heard. No organomegaly noted. EXTREMITIES: 2+ peripheral pulses with no evidence of peripheral edema and no calf tenderness noted. NEUROLOGIC patient is awake, alert and oriented X3. - Labs CBC & Chem 7: 03/21/18 05:54 03/22/18 07:33 Labs: Abnormal Lab Results - Last 24 Hours (Table) 03/21/18 03/21/18 03/22/18 Range/Units 16:42 20:46 05:45 APTT (22.0-30.0) sec Chloride (98-107) mmol/L BUN (9-20) mg/dL Creatinine (0.66-1.25) mg/dL Glucose (74-99) mg/dL POC Glucose (mg/dL) 158 H 200 H 153 H (75-99) mg/dL 03/22/18 03/22/18 03/22/18 Range/Units 07:33 07:33 11:20 APTT 49.0 H (22.0-30.0) sec Chloride 113 H (98-107) mmol/L BUN 55 H (9-20) mg/dL Creatinine 2.38 H (0.66-1.25) mg/dL Glucose 163 H (74-99) mg/dL POC Glucose (mg/dL) 145 H (75-99) mg/dL Assessment and Plan Plan: Assessment and plan #1 non-ST elevation myocardial infarction #2 known history of coronary artery disease with prior RCA stenting in 2007, subsequent 2 vessel bypass with SVG to the OM and SVG to PDA in 2008. #3 hypertension #4 hyperlipidemia #5 hypothyroidism #6 gout #7 acute on chronic kidney disease Plan We will add morphine 1 mg every 6 hours when necessary to the patient's medication regime, continue current therapy. DNP note has been reviewed, I agree with a documented findings and plan of care. Patient was seen and examined.
--- NOTE | 2018-03-22 15:44 | P.PN ---
Subjective Progress Note Date: 03/21/18 This is an 87 year all gentleman patient of Dr. Gonzalez, and Dr. Zenia Veliz/Filemon Syed new to the practice. She has underlying history of CAD, diabetes mellitus , hypertension, admitted emergency room secondary to significant chest pain that woke the patient up and start night he suffered with this chest pain, he took 5 tablets of sublingual nitroglycerin without any relief. Patient was subsequently seen in emergency room. Secondary to chest pressure without any radiation, however this is intense according patient, distant not accompanied by any cough no shortness of breath, no edema, no hemoptysis. Patient denies any fever or chills, she he was last admitted from her facility 02/10/2018, He has underlying history of CABG in 2007 and a cardiac stent in 2006, CK D stage III, atrial fibrillation, hypothyroidism, severe hearing loss. He was last here admitted 02/13/2018 for chest pain, for which she was started on as a bite 60 mg daily, Nitrostat when necessary, aspirin daily, and Lopressor 25 mg twice a day. Glucotrol 5 mg twice a day has been discontinued In the emergency room EKG shows nonspecific ST-T wave changes, normal sinus rhythm. Patient has a creatinine of 3.19, for which cardiac catheterization or imaging studies 40 heart cannot be pursued without any consequence of the kidneys, admitting creatinine are at 3.19, nightly of 64. His troponin on entry was 0.5, second set of troponin 2.35 cardiology has been consulted, patient's chest pain free with Nitropaste, IV heparin infusing O2 by nasal cannula 03/21: Patient denies having any chest pain or palpitations. He feels like his heart rate is on the slow side now for the last couple hours. He states he's feeling better from yesterday. He does complain of low shortness of breath with activity. IV fluids to be changed to saline lock. Cardiology has ordered echocardiogram, increased beta jadyn continue Nitropaste and IV heparin. Aspirin changed 81 mg. Plan is to maximize medical therapy. Review of Systems Constitutional: Reports as per HPI, Denies anorexia, Denies chills, Denies chronic headaches, Denies chronic pain, Denies daytime sleepiness, Denies fatigue, Denies fever, Denies lethargy, Denies malaise, Denies night sweats, Denies poor appetite, Denies sweats, Denies weakness, Denies weight gain, Denies weight loss Ears, nose, mouth and throat: Reports as per HPI, Denies ant. neck pain, Denies bleeding gums, Denies dental pain, Denies dysphagia, Denies epistaxis, Denies headache, Denies hoarseness, Denies mouth pain, Denies nasal congestion, Denies nasal discharge, Denies neck fullness/pressure, Denies neck lump, Denies nose pain, Denies odynophagia, Denies post-nasal drip, Denies sinus pain, Denies sinus pressure, Denies swelling in mouth, Denies swelling in throat, Denies sore throat, Denies vertigo, Denies voice changes Cardiovascular: Reports chest pain, Denies as per HPI, Denies claudication, Denies decreased exercise tolerance, Denies dyspnea on exertion, Denies edema, Denies high blood pressure, Denies irregular heart beat, Denies leg edema, Denies lightheadedness, Denies orthopnea, Denies palpitations, Denies paroxysmal nocturnal dyspnea, Denies phlebitis, Denies rapid heart beat, Denies shortness of breath, Denies syncope Respiratory: Reports as per HPI, Denies congestion, Denies cough, Denies cough with sputum, Denies dyspnea, Denies excessive sputum, Denies hemoptysis, Denies home oxygen, Denies pain, Denies pain on inspiration, Denies pleurisy, Denies respiratory infections, Denies sleep apnea, Denies snoring, Denies wheezing Gastrointestinal: Reports as per HPI, Denies abdominal pain, Denies belching, Denies bloating, Denies BRBPR, Denies change in bowel habits, Denies coffee ground emesis, Denies constipation, Denies diarrhea, Denies dyspepsia, Denies early satiety, Denies excessive gas, Denies heartburn, Denies hematemesis, Denies hematochezia, Denies indigestion, Denies jaundice, Denies lactose intolerance, Denies loss of appetite, Denies melena, Denies nausea, Denies vomiting Genitourinary: Reports as per HPI Musculoskeletal: Reports as per HPI, Reports gait dysfunction, Reports morning stiffness Integumentary: Reports as per HPI, Denies acne, Denies boils, Denies brittle nails, Denies change in hair/nails, Denies color changes, Denies darkening of skin, Denies depigmentation, Denies dryness, Denies foot/leg ulcers, Denies growths, Denies hirsutism, Denies lesions, Denies onychomycosis, Denies pruritus , Denies rash, Denies sores, Denies striae, Denies unusual bruising, Denies wounds Neurological: Reports as per HPI, Reports hearing difficulties, Reports memory loss (Short-term) Objective - Vital Signs Vital signs: Vital Signs Temp 96.9 F L 03/21/18 12:00 Pulse 61 03/21/18 12:00 Resp 18 03/21/18 12:00 BP 97/51 03/21/18 12:00 Pulse Ox 100 03/21/18 12:00 Intake & Output 03/20/18 03/21/18 03/21/18 18:59 06:59 18:59 Intake Total 64.637 105 264.7 Output Total 0 1320 800 Balance 64.637 -1215 -535.3 Weight 61.689 kg 61 kg Intake: IV 10 105 Invasive Line 1 10 30 Sodium Chloride 0.9% 1, 75 000 ml @ 75 mls/hr IV . [id number] [facility] Rx#:[id number] Intake, IV Titration 54.637 114.7 Amount Heparin Sod,Pork in 0.45% 54.637 114.7 NaCl 25,000 unit In 0.45 % NaCl 1 250ml.bag @ 12 UNITS/KG/HR 7.4 mls/hr IV .Q24H [facility] Rx#:[id number] Oral 150 Output: Urine 0 1100 800 Post Void Residual 220 Other: Voiding Method Urinal Urinal Urinal # Voids 2 - Exam General appearance: cooperative, no acute distress - EENT Eyes: anicteric sclerae, EOMI, PERRLA, dentition normal, normal appearance ENT: hard of hearing, NA/AT, normal oropharynx - Neck Neck: no lymphadenopathy, normal ROM, no other, no rigidity, no stridor, no thyromegaly - Respiratory Respiratory: bilateral: CTA, negative: diminished, dullness, rales, rhonchi - Cardiovascular Rhythm: regular Heart sounds: normal: S1, S2 Abnormal Heart Sounds: no systolic murmur, no diastolic murmur, no rub, no S3 Gallop, no S4 Gallop, no click, no other - Gastrointestinal General gastrointestinal: normal bowel sounds, soft - Integumentary Integumentary: no calor, no cellulitis, no cyanotic, no decreased turgor, no flushed, no jaundiced, no normal, normal turgor, no pale, no rash, no ulcer - Neurologic Neurologic: CNII-XII intact - Musculoskeletal Musculoskeletal: gait normal, strength equal bilaterally - Psychiatric Psychiatric: A&O x's 3, appropriate affect, intact judgment & insight - Labs CBC & Chem 7: 03/21/18 05:54 03/22/18 07:33 Labs: Abnormal Lab Results - Last 24 Hours (Table) 03/20/18 03/20/18 03/20/18 Range/Units 14:00 16:01 19:57 RBC (4.30-5.90) m/uL Hgb (13.0-17.5) gm/dL Hct (39.0-53.0) % Lymphocytes # (1.0-4.8) k/uL APTT 61.6 H (22.0-30.0) sec Chloride (98-107) mmol/L Carbon Dioxide (22-30) mmol/L BUN (9-20) mg/dL Creatinine (0.66-1.25) mg/dL Glucose (74-99) mg/dL POC Glucose (mg/dL) (75-99) mg/dL CK-MB (CK-2) 9.5 H 9.3 H (0.0-2.4) ng/mL Troponin I 2.560 H* 2.350 H* (0.000-0.034) ng/mL 03/20/18 03/21/18 03/21/18 Range/Units 20:57 05:54 05:54 RBC (4.30-5.90) m/uL Hgb (13.0-17.5) gm/dL Hct (39.0-53.0) % Lymphocytes # (1.0-4.8) k/uL APTT 57.1 H (22.0-30.0) sec Chloride 116 H (98-107) mmol/L Carbon Dioxide 20 L (22-30) mmol/L BUN 52 H (9-20) mg/dL Creatinine 2.51 H (0.66-1.25) mg/dL Glucose 109 H (74-99) mg/dL POC Glucose (mg/dL) 144 H (75-99) mg/dL CK-MB (CK-2) (0.0-2.4) ng/mL Troponin I (0.000-0.034) ng/mL 03/21/18 03/21/18 03/21/18 Range/Units 05:54 06:03 11:25 RBC 3.56 L (4.30-5.90) m/uL Hgb 11.1 L (13.0-17.5) gm/dL Hct 33.2 L (39.0-53.0) % Lymphocytes # 0.9 L (1.0-4.8) k/uL APTT (22.0-30.0) sec Chloride (98-107) mmol/L Carbon Dioxide (22-30) mmol/L BUN (9-20) mg/dL Creatinine (0.66-1.25) mg/dL Glucose (74-99) mg/dL POC Glucose (mg/dL) 106 H 205 H (75-99) mg/dL CK-MB (CK-2) (0.0-2.4) ng/mL Troponin I (0.000-0.034) ng/mL Assessment and Plan Plan: 1. Acute non-STEMI presenting with elevated troponin, nonspecific EKG changes , symptoms not relieved with nitroglycerin, and long acting nitrates. Patient is currently on IV heparin, aspirin, beta blockers, oxygen consult was made with cardiology and nephrology. No plan for heart catheterization. Plan for medical management only. 2. CK D stage IV, creatinine between 2.212 3.19, patient is going to be receiving IV hydration, cautioned regarding fluid overload, nephrology to see, nephrotoxins to be avoided, hypotension to be avoided 3. Hypothyroidism on levothyroxine 25 g daily 4. Gout on allopurinol 300 mg every 48 hours 5. BPH, unknown whether patient has no intact pathologies, postvoid residuals can be done, however we'll going to obtain renal ultrasound. 6. Hyperlipidemia Lipitor 40 mg will be started his previous LDL was 78 however non-Q in view of an STEMI statins would be initiated next 7. Mild protein calorie malnutrition 8. CODE STATUS DO NOT RESUSCITATE 9. Diabetes mellitus type 2, hemoglobin A1c will be obtained 10. Borderline anemia of chronic disease, hemoglobin ranges between 11.7-12.4 11. CAD with prior CABG in the past, stent to the proximal RCA 2007 with subsequent 2 vessel bypass grafting S BG 2 OM, SVG to PDA 2008 12. COPD him a has chronic dyspnea on exertion, on prednisone 5 mg daily Discharge plan: Return home most likely Impression and plan of care have been directed as dictated by the signing physician. Maddie Wood nurse practitioner acting as scribe for signing physician.
--- NOTE | 2018-03-22 15:46 | P.PN ---
Subjective Progress Note Date: 03/22/18 This is an 87 year all gentleman patient of Dr. Gonzalez, and Dr. Zenia Veliz/Filemon Syed new to the practice. She has underlying history of CAD, diabetes mellitus , hypertension, admitted emergency room secondary to significant chest pain that woke the patient up and start night he suffered with this chest pain, he took 5 tablets of sublingual nitroglycerin without any relief. Patient was subsequently seen in emergency room. Secondary to chest pressure without any radiation, however this is intense according patient, distant not accompanied by any cough no shortness of breath, no edema, no hemoptysis. Patient denies any fever or chills, she he was last admitted from her facility 02/10/2018, He has underlying history of CABG in 2007 and a cardiac stent in 2006, CK D stage III, atrial fibrillation, hypothyroidism, severe hearing loss. He was last here admitted 02/13/2018 for chest pain, for which she was started on as a bite 60 mg daily, Nitrostat when necessary, aspirin daily, and Lopressor 25 mg twice a day. Glucotrol 5 mg twice a day has been discontinued In the emergency room EKG shows nonspecific ST-T wave changes, normal sinus rhythm. Patient has a creatinine of 3.19, for which cardiac catheterization or imaging studies 40 heart cannot be pursued without any consequence of the kidneys, admitting creatinine are at 3.19, nightly of 64. His troponin on entry was 0.5, second set of troponin 2.35 cardiology has been consulted, patient's chest pain free with Nitropaste, IV heparin infusing O2 by nasal cannula 03/21: Patient denies having any chest pain or palpitations. He feels like his heart rate is on the slow side now for the last couple hours. He states he's feeling better from yesterday. He does complain of low shortness of breath with activity. IV fluids to be changed to saline lock. Cardiology has ordered echocardiogram, increased beta jadyn continue Nitropaste and IV heparin. Aspirin changed 81 mg. Plan is to maximize medical therapy. 03/22: According to the patient's nurse, patient had a rough night with chest pain throughout the night. Cardiology is kept him on heparin drip and added in morphine. He is also on Imdur 60 mg daily which does not seem to be helping. Plan is to monitor another 24 hours. Review of Systems Constitutional: Reports as per HPI, Denies anorexia, Denies chills, Denies chronic headaches, Denies chronic pain, Denies daytime sleepiness, Denies fatigue, Denies fever, Denies lethargy, Denies malaise, Denies night sweats, Denies poor appetite, Denies sweats, Denies weakness, Denies weight gain, Denies weight loss Ears, nose, mouth and throat: Reports as per HPI, Denies ant. neck pain, Denies bleeding gums, Denies dental pain, Denies dysphagia, Denies epistaxis, Denies headache, Denies hoarseness, Denies mouth pain, Denies nasal congestion, Denies nasal discharge, Denies neck fullness/pressure, Denies neck lump, Denies nose pain, Denies odynophagia, Denies post-nasal drip, Denies sinus pain, Denies sinus pressure, Denies swelling in mouth, Denies swelling in throat, Denies sore throat, Denies vertigo, Denies voice changes Cardiovascular: Reports chest pain, Denies as per HPI, Denies claudication, Denies decreased exercise tolerance, Denies dyspnea on exertion, Denies edema, Denies high blood pressure, Denies irregular heart beat, Denies leg edema, Denies lightheadedness, Denies orthopnea, Denies palpitations, Denies paroxysmal nocturnal dyspnea, Denies phlebitis, Denies rapid heart beat, Denies shortness of breath, Denies syncope Respiratory: Reports as per HPI, Denies congestion, Denies cough, Denies cough with sputum, Denies dyspnea, Denies excessive sputum, Denies hemoptysis, Denies home oxygen, Denies pain, Denies pain on inspiration, Denies pleurisy, Denies respiratory infections, Denies sleep apnea, Denies snoring, Denies wheezing Gastrointestinal: Reports as per HPI, Denies abdominal pain, Denies belching, Denies bloating, Denies BRBPR, Denies change in bowel habits, Denies coffee ground emesis, Denies constipation, Denies diarrhea, Denies dyspepsia, Denies early satiety, Denies excessive gas, Denies heartburn, Denies hematemesis, Denies hematochezia, Denies indigestion, Denies jaundice, Denies lactose intolerance, Denies loss of appetite, Denies melena, Denies nausea, Denies vomiting Genitourinary: Reports as per HPI Musculoskeletal: Reports as per HPI, Reports gait dysfunction, Reports morning stiffness Integumentary: Reports as per HPI, Denies acne, Denies boils, Denies brittle nails, Denies change in hair/nails, Denies color changes, Denies darkening of skin, Denies depigmentation, Denies dryness, Denies foot/leg ulcers, Denies growths, Denies hirsutism, Denies lesions, Denies onychomycosis, Denies pruritus , Denies rash Neurological: Reports as per HPI, Reports hearing difficulties, Reports memory loss (Short-term) Objective - Vital Signs Vital signs: Vital Signs Temp 98.0 F 03/22/18 12:00 Pulse 63 03/22/18 12:00 Resp 18 03/22/18 12:00 BP 102/49 03/22/18 12:00 Pulse Ox 97 03/22/18 12:00 Intake & Output 03/21/18 03/22/18 03/22/18 18:59 06:59 18:59 Intake Total 486.7 89.17 60 Output Total 800 650 2 Balance -313.3 -560.83 58 Weight 61 kg Intake: Intake, IV Titration 114.7 89.17 Amount Heparin Sod,Pork in 0.45% 114.7 89.17 NaCl 25,000 unit In 0.45 % NaCl 1 250ml.bag @ 12 UNITS/KG/HR 7.4 mls/hr IV .Q24H [facility] Rx#:[id number] Oral 372 60 Output: Urine 800 650 Stool 2 Other: Voiding Method Urinal Urinal Urinal # Voids 2 2 - Exam General appearance: cooperative, no acute distress, patient resting in bed and appears to be comfortable. - EENT Eyes: anicteric sclerae, EOMI, PERRLA, dentition normal, normal appearance ENT: hard of hearing, NA/AT, normal oropharynx - Neck Neck: no lymphadenopathy, normal ROM, no other, no rigidity, no stridor, no thyromegaly - Respiratory Respiratory: bilateral: CTA, negative: diminished, dullness, rales, rhonchi - Cardiovascular Rhythm: regular Heart sounds: normal: S1, S2 Abnormal Heart Sounds: no systolic murmur, no diastolic murmur, no rub, no S3 Gallop, no S4 Gallop, no click, no other - Gastrointestinal General gastrointestinal: normal bowel sounds, soft - Integumentary Integumentary: no calor, no cellulitis, no cyanotic, no decreased turgor, no flushed, no jaundiced, no normal, normal turgor, no pale, no rash, no ulcer - Neurologic Neurologic: CNII-XII intact - Musculoskeletal Musculoskeletal: gait normal, strength equal bilaterally - Psychiatric Psychiatric: A&O x's 3, appropriate affect, intact judgment & insight - Labs CBC & Chem 7: 03/21/18 05:54 03/22/18 07:33 Labs: Abnormal Lab Results - Last 24 Hours (Table) 03/21/18 03/21/18 03/22/18 Range/Units 16:42 20:46 05:45 APTT (22.0-30.0) sec Chloride (98-107) mmol/L BUN (9-20) mg/dL Creatinine (0.66-1.25) mg/dL Glucose (74-99) mg/dL POC Glucose (mg/dL) 158 H 200 H 153 H (75-99) mg/dL Troponin I (0.000-0.034) ng/mL 03/22/18 03/22/18 03/22/18 Range/Units 07:30 07:33 07:33 APTT 49.0 H (22.0-30.0) sec Chloride 113 H (98-107) mmol/L BUN 55 H (9-20) mg/dL Creatinine 2.38 H (0.66-1.25) mg/dL Glucose 163 H (74-99) mg/dL POC Glucose (mg/dL) (75-99) mg/dL Troponin I 0.743 H* (0.000-0.034) ng/mL 03/22/18 Range/Units 11:20 APTT (22.0-30.0) sec Chloride (98-107) mmol/L BUN (9-20) mg/dL Creatinine (0.66-1.25) mg/dL Glucose (74-99) mg/dL POC Glucose (mg/dL) 145 H (75-99) mg/dL Troponin I (0.000-0.034) ng/mL Assessment and Plan Plan: 1. Acute non-STEMI presenting with elevated troponin, nonspecific EKG changes , symptoms not relieved with nitroglycerin, and long acting nitrates. Patient is currently on IV heparin, aspirin, beta blockers, oxygen consult was made with cardiology and nephrology. No plan for heart catheterization. Plan for medical management only. Continue aspirin 81 mg daily, atorvastatin 40 mg daily , Plavix 75 mg daily, heparin drip, Imdur 60 mg daily, Lopressor 50 mg twice daily, morphine sulfate IV 1 mg every 6 hours as needed, nitroglycerin as needed. 2. CK D stage IV, nephrology consult appreciated 3. Hypothyroidism on levothyroxine 25 g daily 4. Gout on allopurinol 300 mg every 48 hours 5. BPH, unknown whether patient has no intact pathologies, postvoid residuals can be done, however we'll going to obtain renal ultrasound. 6. Hyperlipidemia Lipitor 40 mg will be started his previous LDL was 78 however non-Q in view of an STEMI statins would be initiated next 7. Mild protein calorie malnutrition 8. CODE STATUS DO NOT RESUSCITATE 9. Diabetes mellitus type 2, hemoglobin A1c will be obtained 10. Borderline anemia of chronic disease, hemoglobin ranges between 11.7-12.4 11. CAD with prior CABG in the past, stent to the proximal RCA 2007 with subsequent 2 vessel bypass grafting S BG 2 OM, SVG to PDA 2008 12. COPD him a has chronic dyspnea on exertion, on prednisone 5 mg daily Discharge plan: Return home with daughter Impression and plan of care have been directed as dictated by the signing physician. Maddie Wood nurse practitioner acting as scribe for signing physician.
[2018-03-22 16:33] LABS: Glucose,Whole Blood 171 mg/dL (75-99)
[2018-03-22] MEDS: MELATONIN 3 MG TABLET PO SCH (20:16)
[2018-03-22 20:29] LABS: Glucose,Whole Blood 156 mg/dL (75-99)
[2018-03-23] MEDS: LEVOTHYROXINE 25 MCG TAB PO SCH (05:47)
[2018-03-23 06:19] LABS: Glucose,Whole Blood 149 mg/dL (75-99)
[2018-03-23] MEDS: NITROGLYCERIN SL TABS 0.4 MG TAB SUBLINGUAL PRN (06:30)
[2018-03-23] MEDS: ISOSORBIDE MONONITRATE ER 60 MG TAB.ER.24H PO SCH ×2 (07:35→20:15)
[2018-03-23] MEDS: CHOLECALCIFEROL 1,000 UNIT TAB PO SCH (07:35)
[2018-03-23] MEDS: predniSONE 5 MG TAB PO SCH (07:35)
[2018-03-23] MEDS: ASPIRIN 81 MG PO SCH (07:35)
[2018-03-23] MEDS: ATORVASTATIN 40 MG TAB PO SCH (07:35)
[2018-03-23] MEDS: ALLOPURINOL 300 MG TAB PO SCH (07:35)
[2018-03-23] MEDS: FUROSEMIDE 20 MG TAB PO SCH (07:35)
[2018-03-23] MEDS: METOPROLOL TARTRATE 50 MG TAB PO SCH ×2 (07:35→20:15)
[2018-03-23] MEDS: CLOPIDOGREL 75 MG TAB PO SCH (07:35)
[2018-03-23] MEDS: HEPARIN SOD,PORK IN 0.45% NACL 25,000 UNIT in 0.45% NACL 1 250ML.BAG IV SCH (07:38)
--- NOTE | 2018-03-23 10:52 | P.PN ---
Subjective Patient is seen in follow-up for acute kidney injury on chronic kidney disease. Patient has chronic kidney disease stage IV secondary to nephrosclerosis with baseline creatinine near 2.2. Renal function has been improved since admission. Oral intake is fair. No vomiting or diarrhea. Admits to good urine output. Currently feels sleepy. Chest pain is better. Vital signs are stable. General: The patient appeared well nourished and normally developed. HEENT: Head exam is unremarkable. Neck is without jugular venous distension. LUNGS: Lungs are clear to auscultation and percussion. Breath sounds decreased. HEART: Rate and Rhythm are regular. First and second heart sounds normal. No murmurs, rubs or gallops. ABDOMEN: Abdominal exam reveals normal bowel sounds. Non-tender and non- distended. No evidence of peritonitis. EXTREMITITES: No clubbing, cyanosis, or edema. Objective - Vital Signs Vital signs: Vital Signs Temp 98 F 03/23/18 04:00 Pulse 60 03/23/18 04:00 Resp 18 03/23/18 04:00 BP 112/59 03/23/18 04:00 Pulse Ox 94 L 03/23/18 04:00 Intake & Output 03/22/18 03/23/18 03/23/18 18:59 06:59 18:59 Intake Total 180 370 Output Total 3 601 Balance 177 -231 Weight 60.3 kg Intake: Intake, IV Titration 250 Amount Heparin Sod,Pork in 0.45% 250 NaCl 25,000 unit In 0.45 % NaCl 1 250ml.bag @ 12 UNITS/KG/HR 7.4 mls/hr IV .Q24H COUNTS INCLUDE 234 BEDS AT [facility] Rx#:[id number] Oral 180 120 Output: Urine 600 Stool 3 1 Other: Voiding Method Urinal Urinal # Voids 2 2 - Labs CBC & Chem 7: 03/21/18 05:54 03/22/18 07:33 Labs: Abnormal Lab Results - Last 24 Hours (Table) 03/22/18 03/22/18 03/22/18 Range/Units 07:30 11:20 15:34 APTT (22.0-30.0) sec POC Glucose (mg/dL) 145 H (75-99) mg/dL Troponin I 0.743 H* 1.560 H* (0.000-0.034) ng/mL 03/22/18 03/22/18 03/22/18 Range/Units 16:31 19:40 20:27 APTT (22.0-30.0) sec POC Glucose (mg/dL) 171 H 156 H (75-99) mg/dL Troponin I 1.550 H* (0.000-0.034) ng/mL 03/23/18 03/23/18 Range/Units 06:17 07:46 APTT 42.5 H (22.0-30.0) sec POC Glucose (mg/dL) 149 H (75-99) mg/dL Troponin I (0.000-0.034) ng/mL Assessment and Plan Plan: Assessment: 1. Nonoliguric acute kidney injury mostly prerenal improving with IV hydration. Creatinine was 3.19 on admission and is down to 2.38 as of yesterday. No evidence of hydronephrosis noted on renal ultrasound. 2. Chronic kidney disease stage 4 with baseline creatinine near 2.2 secondary to nephrosclerosis. 3. Chest pain. Rule out cardiac etiology. Now off IV heparin. Cardiology following. No plans for cardiac catheterization at this time. 4. History of coronary artery disease status post CABG. 5. Metabolic acidosis secondary to acute kidney injury and IV fluids. Better. 6. Hypertension with chronic kidney disease. Controlled. Plan: Encouraged oral intake. Avoid nephrotoxins. No need for renal replacement therapy at this time.
[2018-03-23 11:32] LABS: Glucose,Whole Blood 163 mg/dL (75-99)
--- NOTE | 2018-03-23 14:16 | P.PN ---
Subjective Progress Note Date: 03/23/18 Principal diagnosis: Non-Q-wave PR This is an 87-year-old gentleman who follows regularly with Dr. Knutson in the office. He has a known history of coronary artery disease with prior bypass surgery, patient underwent two-vessel bypass grafting with an SVG to the OM and SVG to the PDA in 2008 prior to that he had RCA stenting in 2007. hypertension, hyperlipidemia, diabetes, chronic kidney disease. He was just recently in the hospital in February of this year with a non-Q-wave myocardial infarction decision was made at that time to treat him medically. He presents again to the hospital on this occasion with symptoms of severe mid to left chest discomfort. He states that the discomfort kept him up all night long. EKG on arrival here showed a normal sinus rhythm with mild ST depression noted in the lateral leads. Chest x-ray showed chronic changes without evidence of acute intrathoracic disease. Blood pressure 142/70 with a heart rate in the 80s , 94% on room air. White blood cell count of 6.7, hemoglobin 11.1, platelet count 198. Sodium 142, potassium 4.3, BUN 52, creatinine 2.5. On admission the BUN of 64 and creatinine was 3.1. Troponin 0.5, 2.5, 2.3. His troponins in May were in the range of 0.03. Creatinine in May 2.2. At the time of my examination this morning, patient still having some mild chest discomfort although he states that it has subsided substantially. He also has a persistent cough this morning. Overall he states that he just feels awful. 03/22/2018 Patient was seen and examined this morning, he had several bouts of chest pain throughout the night starting at around 3 AM until this morning. He was given several nitroglycerin, most of which did not resolve his symptoms. Dr. MARYCRUZ Syed did have a discussion with the patient and his daughter at bedside today, the decision was made to maximize medical therapy and pain control. We will start the patient on morphine today. 03/23/2018 Patient was seen and examined this morning, he did have another episode of chest discomfort this morning and through the night last night. It appears that the morphine seems to hold him for about a half-hour before pain returns. He does state that he gets some relief about half hour after taking his Imdur. We will increase his current dose of Imdur and continue the rest of his medications. Discontinue the IV heparin and put the patient on subcu heparin today. Objective - Vital Signs Vital signs: Vital Signs Temp 98.3 F 03/23/18 12:00 Pulse 58 L 03/23/18 12:00 Resp 20 03/23/18 12:00 BP 94/58 03/23/18 12:00 Pulse Ox 98 03/23/18 12:00 Intake & Output 03/22/18 03/23/18 03/23/18 18:59 06:59 18:59 Intake Total 180 370 Output Total 3 601 2 Balance 177 -231 -2 Weight 60.3 kg Intake: Intake, IV Titration 250 Amount Heparin Sod,Pork in 0.45% 250 NaCl 25,000 unit In 0.45 % NaCl 1 250ml.bag @ 12 UNITS/KG/HR 7.4 mls/hr IV .Q24H [facility] Rx#:[id number] Oral 180 120 Output: Urine 600 Stool 3 1 2 Other: Voiding Method Urinal Urinal Urinal # Voids 2 2 400 - Exam PHYSICAL EXAMINATION: GENERAL: 87-year-old gentleman in no acute distress at the time of my examination HEENT: Head is atraumatic, normocephalic. Pupils equal, round. Sclera anicteric. Conjunctiva are clear. Mucous membranes of the mouth are moist. Neck is supple. There is no elevated jugular venous pressure.No Carotid bruit is heard. HEART EXAMINATION: Heart S1, S2 systolic murmur heard. CHEST EXAMINATION: Lungs reveal fine rales to bilateral bases. ABDOMEN: Soft, nontender. Bowel sounds are heard. No organomegaly noted. EXTREMITIES: 2+ peripheral pulses with no evidence of peripheral edema and no calf tenderness noted. NEUROLOGIC patient is awake, alert and oriented X3. - Labs CBC & Chem 7: 03/21/18 05:54 03/22/18 07:33 Labs: Abnormal Lab Results - Last 24 Hours (Table) 03/22/18 03/22/18 03/22/18 Range/Units 15:34 16:31 19:40 APTT (22.0-30.0) sec POC Glucose (mg/dL) 171 H (75-99) mg/dL Troponin I 1.560 H* 1.550 H* (0.000-0.034) ng/mL 03/22/18 03/23/18 03/23/18 Range/Units 20:27 06:17 07:46 APTT 42.5 H (22.0-30.0) sec POC Glucose (mg/dL) 156 H 149 H (75-99) mg/dL Troponin I (0.000-0.034) ng/mL 03/23/18 Range/Units 11:30 APTT (22.0-30.0) sec POC Glucose (mg/dL) 163 H (75-99) mg/dL Troponin I (0.000-0.034) ng/mL Assessment and Plan Plan: Assessment and plan #1 non-ST elevation myocardial infarction #2 known history of coronary artery disease with prior RCA stenting in 2007, subsequent 2 vessel bypass with SVG to the OM and SVG to PDA in 2008. #3 hypertension #4 hyperlipidemia #5 hypothyroidism #6 gout #7 acute on chronic kidney disease Plan We'll discontinue the IV heparin today, increase Imdur dose, put the patient on Lovenox. Continue to monitor. DNP note has been reviewed, I agree with a documented findings and plan of care. Patient was seen and examined.
--- NOTE | 2018-03-23 14:31 | P.PN ---
Subjective Progress Note Date: 03/23/18 This is an 87 year all gentleman patient of Dr. Gonzalez, and Dr. Zenia Veliz/Filemon Syed new to the practice. She has underlying history of CAD, diabetes mellitus , hypertension, admitted emergency room secondary to significant chest pain that woke the patient up and start night he suffered with this chest pain, he took 5 tablets of sublingual nitroglycerin without any relief. Patient was subsequently seen in emergency room. Secondary to chest pressure without any radiation, however this is intense according patient, distant not accompanied by any cough no shortness of breath, no edema, no hemoptysis. Patient denies any fever or chills, she he was last admitted from her facility 02/10/2018, He has underlying history of CABG in 2007 and a cardiac stent in 2006, CK D stage III, atrial fibrillation, hypothyroidism, severe hearing loss. He was last here admitted 02/13/2018 for chest pain, for which she was started on as a bite 60 mg daily, Nitrostat when necessary, aspirin daily, and Lopressor 25 mg twice a day. Glucotrol 5 mg twice a day has been discontinued In the emergency room EKG shows nonspecific ST-T wave changes, normal sinus rhythm. Patient has a creatinine of 3.19, for which cardiac catheterization or imaging studies 40 heart cannot be pursued without any consequence of the kidneys, admitting creatinine are at 3.19, nightly of 64. His troponin on entry was 0.5, second set of troponin 2.35 cardiology has been consulted, patient's chest pain free with Nitropaste, IV heparin infusing O2 by nasal cannula 03/21: Patient denies having any chest pain or palpitations. He feels like his heart rate is on the slow side now for the last couple hours. He states he's feeling better from yesterday. He does complain of low shortness of breath with activity. IV fluids to be changed to saline lock. Cardiology has ordered echocardiogram, increased beta jadyn continue Nitropaste and IV heparin. Aspirin changed 81 mg. Plan is to maximize medical therapy. 03/22: According to the patient's nurse, patient had a rough night with chest pain throughout the night. Cardiology is kept him on heparin drip and added in morphine. He is also on Imdur 60 mg daily which does not seem to be helping. Plan is to monitor another 24 hours. 03/23: Patient continues to have chest pain and cardiology has increased Imdur 60 mg twice daily, heparin drip discontinued and switched to subcutaneous heparin. Patient is continued on morphine IV. Patient does get relief from his chest pain shortly after imdur is given. TSH is 1.550. Review of Systems Constitutional: Reports as per HPI, Denies anorexia, Denies chills, Denies chronic headaches, Denies chronic pain, Denies daytime sleepiness, reports fatigue, Denies fever, Denies lethargy, Denies malaise, Denies night sweats, Denies poor appetite, Denies sweats, Denies weakness, Denies weight gain, Denies weight loss Ears, nose, mouth and throat: Reports as per HPI, Denies ant. neck pain, Denies bleeding gums, Denies dental pain, Denies dysphagia, Denies epistaxis, Denies headache, Denies hoarseness, Denies mouth pain, Denies nasal congestion, Denies nasal discharge, Denies neck fullness/pressure, Denies neck lump, Denies nose pain, Denies odynophagia, Denies post-nasal drip, Denies sinus pain, Denies sinus pressure, Denies swelling in mouth, Denies swelling in throat, Denies sore throat, Denies vertigo, Denies voice changes Cardiovascular: Reports chest pain, reports decreased exercise tolerance, Denies dyspnea on exertion, Denies edema, Denies high blood pressure, Denies irregular heart beat, Denies leg edema, Denies lightheadedness, Denies orthopnea , Denies palpitations, Denies paroxysmal nocturnal dyspnea, Denies phlebitis, Denies rapid heart beat, Denies shortness of breath, Denies syncope Respiratory: Reports as per HPI, Denies congestion, Denies cough, Denies cough with sputum, Denies dyspnea, Denies excessive sputum, Denies hemoptysis, Denies home oxygen, Denies pain, Denies pain on inspiration, Denies pleurisy, Denies respiratory infections, Denies sleep apnea, Denies snoring, Denies wheezing Gastrointestinal: Reports as per HPI, Denies abdominal pain, Denies belching, Denies bloating, Denies BRBPR, Denies change in bowel habits, Denies coffee ground emesis, Denies constipation, Denies diarrhea, Denies dyspepsia, Denies early satiety, Denies excessive gas, Denies heartburn, Denies hematemesis, Denies hematochezia, Denies indigestion, Denies jaundice, Denies lactose intolerance, Denies loss of appetite, Denies melena, Denies nausea, Denies vomiting Genitourinary: Reports as per HPI Musculoskeletal: Reports as per HPI, Reports gait dysfunction, Reports morning stiffness Integumentary: Reports as per HPI, Denies acne, Denies boils, Denies brittle nails, Denies change in hair/nails, Denies color changes, Denies darkening of skin, Denies depigmentation, Denies dryness, Denies foot/leg ulcers, Denies growths, Denies hirsutism, Denies lesions, Denies onychomycosis, Denies pruritus , Denies rash Neurological: Reports as per HPI, Reports hearing difficulties, Reports memory loss (Short-term) Objective - Vital Signs Vital signs: Vital Signs Temp 98 F 03/23/18 04:00 Pulse 60 03/23/18 04:00 Resp 18 03/23/18 04:00 BP 112/59 03/23/18 04:00 Pulse Ox 94 L 03/23/18 04:00 Intake & Output 03/22/18 03/23/18 03/23/18 18:59 06:59 18:59 Intake Total 180 370 Output Total 3 601 Balance 177 -231 Weight 60.3 kg Intake: Intake, IV Titration 250 Amount Heparin Sod,Pork in 0.45% 250 NaCl 25,000 unit In 0.45 % NaCl 1 250ml.bag @ 12 UNITS/KG/HR 7.4 mls/hr IV .Q24H [facility] Rx#:[id number] Oral 180 120 Output: Urine 600 Stool 3 1 Other: Voiding Method Urinal Urinal # Voids 2 2 - Exam General appearance: cooperative, no acute distress, patient resting in bed and appears to be comfortable - EENT Eyes: anicteric sclerae, EOMI, PERRLA, dentition normal, normal appearance ENT: hard of hearing, NA/AT, normal oropharynx - Neck Neck: no lymphadenopathy, normal ROM, no other, no rigidity, no stridor, no thyromegaly - Respiratory Respiratory: bilateral: CTA, negative: diminished, dullness, rales, rhonchi - Cardiovascular Rhythm: regular Heart sounds: normal: S1, S2 Abnormal Heart Sounds: no systolic murmur, no diastolic murmur, no rub, no S3 Gallop, no S4 Gallop, no click, no other - Gastrointestinal General gastrointestinal: normal bowel sounds, soft - Integumentary Integumentary: no calor, no cellulitis, no cyanotic, no decreased turgor, no flushed, no jaundiced, no normal, normal turgor, no pale, no rash, no ulcer - Neurologic Neurologic: CNII-XII intact - Musculoskeletal Musculoskeletal: gait normal, strength equal bilaterally - Psychiatric Psychiatric: A&O x's 3, appropriate affect, intact judgment & insight - Labs CBC & Chem 7: 03/21/18 05:54 03/22/18 07:33 Labs: Abnormal Lab Results - Last 24 Hours (Table) 03/22/18 03/22/18 03/22/18 Range/Units 07:30 15:34 16:31 APTT (22.0-30.0) sec POC Glucose (mg/dL) 171 H (75-99) mg/dL Troponin I 0.743 H* 1.560 H* (0.000-0.034) ng/mL 03/22/18 03/22/18 03/23/18 Range/Units 19:40 20:27 06:17 APTT (22.0-30.0) sec POC Glucose (mg/dL) 156 H 149 H (75-99) mg/dL Troponin I 1.550 H* (0.000-0.034) ng/mL 03/23/18 Range/Units 07:46 APTT 42.5 H (22.0-30.0) sec POC Glucose (mg/dL) (75-99) mg/dL Troponin I (0.000-0.034) ng/mL Assessment and Plan Plan: 1. Acute non-STEMI presenting with elevated troponin, nonspecific EKG changes , symptoms not relieved with nitroglycerin, and long acting nitrates. Patient is currently on IV heparin, aspirin, beta blockers, oxygen consult was made with cardiology and nephrology. No plan for heart catheterization. Plan for medical management only. Continue aspirin 81 mg daily, atorvastatin 40 mg daily , Plavix 75 mg daily, heparin subcu, Imdur 60 mg twicedaily, Lopressor 50 mg twice daily, morphine sulfate IV 1 mg every 6 hours as needed, nitroglycerin as needed. 2. CK D stage IV, nephrology consult appreciated 3. Hypothyroidism on levothyroxine 25 g daily 4. Gout on allopurinol 300 mg every 48 hours 5. BPH, unknown whether patient has no intact pathologies, postvoid residuals can be done, however we'll going to obtain renal ultrasound. 6. Hyperlipidemia Lipitor 40 mg will be started his previous LDL was 78 however non-Q in view of an STEMI statins would be initiated next 7. Mild protein calorie malnutrition 8. CODE STATUS DO NOT RESUSCITATE 9. Diabetes mellitus type 2, hemoglobin A1c will be obtained 10. Borderline anemia of chronic disease, hemoglobin ranges between 11.7-12.4 11. CAD with prior CABG in the past, stent to the proximal RCA 2007 with subsequent 2 vessel bypass grafting S BG 2 OM, SVG to PDA 2008 12. COPD with chronic dyspnea on exertion, on prednisone 5 mg daily Discharge plan: Return home with daughter Impression and plan of care have been directed as dictated by the signing physician. Maddie Wood nurse practitioner acting as scribe for signing physician.
[2018-03-23 16:21] LABS: Glucose,Whole Blood 174 mg/dL (75-99)
[2018-03-23] MEDS: MELATONIN 3 MG TABLET PO SCH (20:15)
[2018-03-23] MEDS: HEPARIN SODIUM,PORCINE 5,000 UNIT/ML 1 ML VIAL SQ SCH (20:15)
[2018-03-23 20:52] LABS: Glucose,Whole Blood 188 mg/dL (75-99)
[2018-03-24] MEDS: LEVOTHYROXINE 25 MCG TAB PO SCH (06:06)
[2018-03-24 06:13] LABS: Calcium 9.2 mg/dL (8.4-10.2); Potassium 4.2 mmol/L (3.5-5.1)
[2018-03-24 06:25] LABS: Glucose,Whole Blood 146 mg/dL (75-99)
[2018-03-24] MEDS: ASPIRIN 81 MG PO SCH (08:24)
[2018-03-24] MEDS: HEPARIN SODIUM,PORCINE 5,000 UNIT/ML 1 ML VIAL SQ SCH ×2 (08:25→21:10)
[2018-03-24] MEDS: predniSONE 5 MG TAB PO SCH (08:25)
[2018-03-24] MEDS: METOPROLOL TARTRATE 25 MG TAB PO SCH ×2 (08:25→21:10)
[2018-03-24] MEDS: CLOPIDOGREL 75 MG TAB PO SCH (08:25)
[2018-03-24] MEDS: ATORVASTATIN 40 MG TAB PO SCH (08:25)
[2018-03-24] MEDS: ISOSORBIDE MONONITRATE ER 60 MG TAB.ER.24H PO SCH ×2 (08:25→21:10)
--- NOTE | 2018-03-24 08:46 | PN ---
PROGRESS NOTE Patient is seen for followup for acute kidney injury. This morning, he was comfortable. Patient denied any significant complaints. His renal function is about the same as yesterday with creatinine at 2.4, which is slightly up from 2.3 yesterday. Patient is currently maintained on oral Lasix. He denies any complaints this morning. Blood pressure was 105/52, heart rate 63 per minute. He is afebrile. Examination of the heart, S1, S2. Examination of the lungs, bilateral breath sounds are heard. Abdomen is soft, nontender. Examination of the lower extremities shows no evidence of edema, LATIN DANCER exam is grossly intact. LABS: Show sodium of 140, potassium 4.2, chloride 111, CO2 is 21, BUN 74, serum creatinine 2.43. ASSESSMENT: 1. Acute kidney injury, currently improved. However, patient's blood pressure remains low and he is maintained on Imdur and Lopressor, the dose of which could be decreased. Patient did have an acute myocardial infarction this admission. His heart rate is not significantly elevated. I will decrease the dose of Lopressor to 25 mg b.i.d. from 50 mg b.i.d. 2. Status post acute myocardial infarction. 3. Chronic kidney disease, NKF stage IV secondary to nephrosclerosis. Baseline creatinine about 2.2. 4. History of coronary artery disease, status post coronary artery bypass surgery. 5. Metabolic acidosis due to renal failure. 6. Hypertension, controlled. Blood pressure is actually low. PLAN: Decrease Lopressor to 25 mg b.i.d. Continue with the minimal dose of Lasix. Currently, patient is not volume overloaded at all. MMODL / IJN: [id number] /
[2018-03-24] MEDS: CHOLECALCIFEROL 1,000 UNIT TAB PO SCH (11:34)
[2018-03-24 11:42] LABS: Glucose,Whole Blood 171 mg/dL (75-99)
--- NOTE | 2018-03-24 12:07 | ECHOF ---
Referral Reason:chest pain MEASUREMENTS -------- HEIGHT: 170.2 cm WEIGHT: 60.8 kg BP: 118/63 IVSd: 0.9 cm (0.6 - 1.1) LVIDd: 2.5 cm (3.9 - 5.3) LVPWd: 1.3 cm (0.6 - 1.1) IVSs: 1.5 cm LVIDs: 1.0 cm LVPWs: 1.2 cm LAESV Index (A-L): 35.25 ml/m Ao Diam: 3.2 cm (2.0 - 3.7) AV Cusp: 1.6 cm (1.5 - 2.6) LA Diam: 3.7 cm (2.7 - 3.8) MV EXCURSION: 17.007 mm (> 18.000) MV EF SLOPE: 97 mm/s (70 - 150) EPSS: 0.5 cm MV E Nathan: 0.83 m/s MV DecT: 218 ms MV A Nathan: 1.12 m/s MV E/A Ratio: 0.74 AR PHT: 586 ms RAP: 5.00 mmHg RVSP: 16.77 mmHg FINDINGS -------- Sinus rhythm. This was a technically good study. The left ventricular size is normal. There is borderline concentric left ventricular hypertrophy. Overall left ventricular systolic function is normal with, an EF between 55 - 60 %. Apical septum LV wall motion is hypokinetic. The right ventricle is normal in size. LA is moderately dilated 34-39 ml/m2 The right atrium is normal in size. Aortic valve is trileaflet and is mildly thickened. There is mild aortic regurgitation. The mitral valve leaflets are mildly thickened. Mild mitral regurgitation is present. Mild tricuspid regurgitation present. The right ventricular systolic pressure, as measured by Doppl er, is 16.77mmHg. Pulmonic valve appears structurally normal. The aortic root size is normal. IVC Not well visulized. The pericardium is normal. CONCLUSIONS -------- 1. Sinus rhythm. 2. This was a technically good study. 3. The left ventricular size is normal. 4. There is borderline concentric left ventricular hypertrophy. 5. Overall left ventricular systolic function is normal with, an EF between 55 - 60 %. 6. Apical septum LV wall motion is hypokinetic. 7. The right ventricle is normal in size. 8. LA is moderately dilated 34-39 ml/m2 9. The right atrium is normal in size. 10. Aortic valve is trileaflet and is mildly thickened. 11. There is mild aortic regurgitation. 12. The mitral valve leaflets are mildly thickened. 13. Mild mitral regurgitation is present. 14. Mild tricuspid regurgitation present. 15. The right ventricular systolic pressure, as measured by Doppler, is 16.77mmHg. 16. Pulmonic valve appears structurally normal. 17. The aortic root size is normal. 18. IVC Not well visulized. 19. The pericardium is normal. APPLICATION SECURITY ENGINEER: Jany Carr RDCS
--- NOTE | 2018-03-24 13:49 | P.PN ---
Subjective Progress Note Date: 03/24/18 Principal diagnosis: Non-Q-wave NC This is an 87-year-old gentleman who follows regularly with Dr. Knutson in the office. He has a known history of coronary artery disease with prior bypass surgery, patient underwent two-vessel bypass grafting with an SVG to the OM and SVG to the PDA in 2008 prior to that he had RCA stenting in 2007. hypertension, hyperlipidemia, diabetes, chronic kidney disease. He was just recently in the hospital in February of this year with a non-Q-wave myocardial infarction decision was made at that time to treat him medically. He presents again to the hospital on this occasion with symptoms of severe mid to left chest discomfort. He states that the discomfort kept him up all night long. EKG on arrival here showed a normal sinus rhythm with mild ST depression noted in the lateral leads. Chest x-ray showed chronic changes without evidence of acute intrathoracic disease. Blood pressure 142/70 with a heart rate in the 80s , 94% on room air. White blood cell count of 6.7, hemoglobin 11.1, platelet count 198. Sodium 142, potassium 4.3, BUN 52, creatinine 2.5. On admission the BUN of 64 and creatinine was 3.1. Troponin 0.5, 2.5, 2.3. His troponins in May were in the range of 0.03. Creatinine in May 2.2. At the time of my examination this morning, patient still having some mild chest discomfort although he states that it has subsided substantially. He also has a persistent cough this morning. Overall he states that he just feels awful. 03/22/2018 Patient was seen and examined this morning, he had several bouts of chest pain throughout the night starting at around 3 AM until this morning. He was given several nitroglycerin, most of which did not resolve his symptoms. Dr. MARYCRUZ Syed did have a discussion with the patient and his daughter at bedside today, the decision was made to maximize medical therapy and pain control. We will start the patient on morphine today. 03/23/2018 Patient was seen and examined this morning, he did have another episode of chest discomfort this morning and through the night last night. It appears that the morphine seems to hold him for about a half-hour before pain returns. He does state that he gets some relief about half hour after taking his Imdur. We will increase his current dose of Imdur and continue the rest of his medications. Discontinue the IV heparin and put the patient on subcu heparin today. 03/24/2018 Patient seen and examined this morning, overall feeling better, he did have episode of chest discomfort earlier which she states wears him out completely. Hemodynamically he is stable. I did have a lengthy discussion with the daughter today, she is going to speak with her siblings, and consider possible hospice. Objective - Vital Signs Vital signs: Vital Signs Temp 97.9 F 03/24/18 11:32 Pulse 79 03/24/18 11:32 Resp 16 03/24/18 11:32 BP 92/55 03/24/18 11:32 Pulse Ox 94 L 03/24/18 11:32 Intake & Output 03/23/18 03/24/18 03/24/18 18:59 06:59 18:59 Intake Total 300 240 Output Total 453 462 Balance -453 -162 240 Weight 61 kg Intake: Oral 300 240 Output: Urine 450 375 Post Void Residual 87 Stool 3 Other: Voiding Method Urinal Urinal Urinal # Voids 1 # Bowel Movements 0 - Exam PHYSICAL EXAMINATION: GENERAL: 87-year-old gentleman in no acute distress at the time of my examination HEENT: Head is atraumatic, normocephalic. Pupils equal, round. Sclera anicteric. Conjunctiva are clear. Mucous membranes of the mouth are moist. Neck is supple. There is no elevated jugular venous pressure.No Carotid bruit is heard. HEART EXAMINATION: Heart S1, S2 systolic murmur heard. CHEST EXAMINATION: Lungs reveal fine rales to bilateral bases. ABDOMEN: Soft, nontender. Bowel sounds are heard. No organomegaly noted. EXTREMITIES: 2+ peripheral pulses with no evidence of peripheral edema and no calf tenderness noted. NEUROLOGIC patient is awake, alert and oriented X3. - Labs CBC & Chem 7: 03/21/18 05:54 03/24/18 05:38 Labs: Abnormal Lab Results - Last 24 Hours (Table) 03/23/18 03/23/18 03/24/18 Range/Units 16:19 20:48 05:38 Chloride 111 H (98-107) mmol/L Carbon Dioxide 21 L (22-30) mmol/L BUN 74 H (9-20) mg/dL Creatinine 2.43 H (0.66-1.25) mg/dL Glucose 112 H (74-99) mg/dL POC Glucose (mg/dL) 174 H 188 H (75-99) mg/dL 03/24/18 03/24/18 Range/Units 06:24 11:40 Chloride (98-107) mmol/L Carbon Dioxide (22-30) mmol/L BUN (9-20) mg/dL Creatinine (0.66-1.25) mg/dL Glucose (74-99) mg/dL POC Glucose (mg/dL) 146 H 171 H (75-99) mg/dL Assessment and Plan Plan: Assessment and plan #1 non-ST elevation myocardial infarction #2 known history of coronary artery disease with prior RCA stenting in 2007, subsequent 2 vessel bypass with SVG to the OM and SVG to PDA in 2008. #3 hypertension #4 hyperlipidemia #5 hypothyroidism #6 gout #7 acute on chronic kidney disease Plan Cardiology's perspective, we'll continue the patient on current medications. Daughter is at his speak with the rest of her siblings regarding possible hospice. DNP note has been reviewed, I agree with a documented findings and plan of care. Patient was seen and examined.
--- NOTE | 2018-03-24 14:44 | P.PN ---
Subjective Progress Note Date: 03/24/18 This is an 87 year all gentleman patient of Dr. Gonzalez, and Dr. Zenia Veliz/Filemon Syed new to the practice. She has underlying history of CAD, diabetes mellitus , hypertension, admitted emergency room secondary to significant chest pain that woke the patient up and start night he suffered with this chest pain, he took 5 tablets of sublingual nitroglycerin without any relief. Patient was subsequently seen in emergency room. Secondary to chest pressure without any radiation, however this is intense according patient, distant not accompanied by any cough no shortness of breath, no edema, no hemoptysis. Patient denies any fever or chills, she he was last admitted from her facility 02/10/2018, He has underlying history of CABG in 2007 and a cardiac stent in 2006, CK D stage III, atrial fibrillation, hypothyroidism, severe hearing loss. He was last here admitted 02/13/2018 for chest pain, for which she was started on as a bite 60 mg daily, Nitrostat when necessary, aspirin daily, and Lopressor 25 mg twice a day. Glucotrol 5 mg twice a day has been discontinued In the emergency room EKG shows nonspecific ST-T wave changes, normal sinus rhythm. Patient has a creatinine of 3.19, for which cardiac catheterization or imaging studies 40 heart cannot be pursued without any consequence of the kidneys, admitting creatinine are at 3.19, nightly of 64. His troponin on entry was 0.5, second set of troponin 2.35 cardiology has been consulted, patient's chest pain free with Nitropaste, IV heparin infusing O2 by nasal cannula 03/21: Patient denies having any chest pain or palpitations. He feels like his heart rate is on the slow side now for the last couple hours. He states he's feeling better from yesterday. He does complain of low shortness of breath with activity. IV fluids to be changed to saline lock. Cardiology has ordered echocardiogram, increased beta jadyn continue Nitropaste and IV heparin. Aspirin changed 81 mg. Plan is to maximize medical therapy. 03/22: According to the patient's nurse, patient had a rough night with chest pain throughout the night. Cardiology is kept him on heparin drip and added in morphine. He is also on Imdur 60 mg daily which does not seem to be helping. Plan is to monitor another 24 hours. 03/23: Patient continues to have chest pain and cardiology has increased Imdur 60 mg twice daily, heparin drip discontinued and switched to subcutaneous heparin. Patient is continued on morphine IV. Patient does get relief from his chest pain shortly after imdur is given. TSH is 1.550. 03/24: Patient states he is chest pain-free at this time and is comfortable but also states he has had continued episodes of chest pain there initially improved with Imdur but returns. Cardiology has had a conversation with patient 's daughter to consider hospice care. Daughter will speak to her siblings and make a final decision. If patient chooses hospice, we'll plan for referral in the morning and discharge him home tomorrow. In the meantime, patient will be started on morphine extended release daily. Review of Systems Constitutional: Reports as per HPI, Denies anorexia, Denies chills, Denies chronic headaches, Denies chronic pain, Denies daytime sleepiness, reports fatigue, Denies fever, Denies lethargy, Denies malaise, Denies night sweats, reports poor appetite, Denies sweats, Denies weakness, Denies weight gain, denies weight loss Ears, nose, mouth and throat: Reports as per HPI, Denies ant. neck pain, Denies bleeding gums, Denies dental pain, Denies dysphagia, Denies epistaxis, Denies headache, Denies hoarseness, Denies mouth pain, Denies nasal congestion, Denies nasal discharge, Denies neck fullness/pressure, Denies neck lump, Denies nose pain, Denies odynophagia, Denies post-nasal drip, Denies sinus pain, Denies sinus pressure, Denies swelling in mouth, Denies swelling in throat, Denies sore throat, Denies vertigo, Denies voice changes Cardiovascular: Reports chest pain, reports decreased exercise tolerance, Denies dyspnea on exertion, Denies edema, Denies high blood pressure, Denies irregular heart beat, Denies leg edema, Denies lightheadedness, Denies orthopnea , Denies palpitations, Denies paroxysmal nocturnal dyspnea, Denies phlebitis, Denies rapid heart beat, Denies shortness of breath, Denies syncope Respiratory: Reports as per HPI, Denies congestion, Denies cough, Denies cough with sputum, Denies dyspnea, Denies excessive sputum, Denies hemoptysis, Denies home oxygen, Denies pain, Denies pain on inspiration, Denies pleurisy, Denies respiratory infections, Denies sleep apnea, Denies snoring, Denies wheezing Gastrointestinal: Reports as per HPI, Denies abdominal pain, Denies belching, Denies bloating, Denies BRBPR, Denies change in bowel habits, Denies coffee ground emesis, Denies constipation, Denies diarrhea, Denies dyspepsia, Denies early satiety, Denies excessive gas, Denies heartburn, Denies hematemesis, Denies hematochezia, Denies indigestion, Denies jaundice, Denies lactose intolerance, Denies loss of appetite, Denies melena, Denies nausea, Denies vomiting Genitourinary: Reports as per HPI Musculoskeletal: Reports as per HPI, Reports gait dysfunction, Reports morning stiffness Integumentary: Reports as per HPI, Denies acne, Denies boils, Denies brittle nails, Denies change in hair/nails, Denies color changes, Denies darkening of skin, Denies depigmentation, Denies dryness, Denies foot/leg ulcers, Denies growths, Denies hirsutism, Denies lesions, Denies onychomycosis, Denies pruritus , Denies rash Neurological: Reports as per HPI, Reports hearing difficulties, Reports memory loss (Short-term) Objective - Vital Signs Vital signs: Vital Signs Temp 97.9 F 03/24/18 11:32 Pulse 79 03/24/18 11:32 Resp 16 03/24/18 11:32 BP 92/55 03/24/18 11:32 Pulse Ox 94 L 03/24/18 11:32 Intake & Output 03/23/18 03/24/18 03/24/18 18:59 06:59 18:59 Intake Total 300 240 Output Total 453 462 Balance -453 -162 240 Weight 61 kg Intake: Oral 300 240 Output: Urine 450 375 Post Void Residual 87 Stool 3 Other: Voiding Method Urinal Urinal Urinal # Voids 1 # Bowel Movements 0 - Exam General appearance: cooperative, no acute distress, patient resting in bed - EENT Eyes: anicteric sclerae, EOMI, PERRLA, dentition normal, normal appearance ENT: hard of hearing, NA/AT, normal oropharynx - Neck Neck: no lymphadenopathy, normal ROM, no other, no rigidity, no stridor, no thyromegaly - Respiratory Respiratory: bilateral: CTA, negative: diminished, dullness, rales, rhonchi - Cardiovascular Rhythm: regular Heart sounds: normal: S1, S2 Abnormal Heart Sounds: no systolic murmur, no diastolic murmur, no rub, no S3 Gallop, no S4 Gallop, no click, no other - Gastrointestinal General gastrointestinal: normal bowel sounds, soft - Integumentary Integumentary: no calor, no cellulitis, no cyanotic, no decreased turgor, no flushed, no jaundiced, no normal, normal turgor, no pale, no rash, no ulcer - Neurologic Neurologic: CNII-XII intact - Musculoskeletal Musculoskeletal: gait normal, strength equal bilaterally - Psychiatric Psychiatric: A&O x's 3, appropriate affect, intact judgment & insight - Labs CBC & Chem 7: 03/21/18 05:54 03/24/18 05:38 Labs: Abnormal Lab Results - Last 24 Hours (Table) 03/23/18 03/23/18 03/24/18 Range/Units 16:19 20:48 05:38 Chloride 111 H (98-107) mmol/L Carbon Dioxide 21 L (22-30) mmol/L BUN 74 H (9-20) mg/dL Creatinine 2.43 H (0.66-1.25) mg/dL Glucose 112 H (74-99) mg/dL POC Glucose (mg/dL) 174 H 188 H (75-99) mg/dL 03/24/18 03/24/18 Range/Units 06:24 11:40 Chloride (98-107) mmol/L Carbon Dioxide (22-30) mmol/L BUN (9-20) mg/dL Creatinine (0.66-1.25) mg/dL Glucose (74-99) mg/dL POC Glucose (mg/dL) 146 H 171 H (75-99) mg/dL Assessment and Plan Plan: 1. Acute non-STEMI presenting with elevated troponin, nonspecific EKG changes , symptoms not relieved with nitroglycerin, and long acting nitrates. Patient is currently on IV heparin, aspirin, beta blockers, oxygen consult was made with cardiology and nephrology. No plan for heart catheterization. Plan for medical management only. Continue aspirin 81 mg daily, atorvastatin 40 mg daily , Plavix 75 mg daily, heparin subcu, Imdur 60 mg twice daily, Lopressor 25 mg twice daily, morphine sulfate IV 1 mg every 6 hours as needed, nitroglycerin as needed. MS Contin 15 mg daily added 2. CK D stage IV, nephrology consult appreciated 3. Hypothyroidism on levothyroxine 25 g daily 4. Gout on allopurinol 300 mg every 48 hours 5. BPH, unknown whether patient has no intact pathologies, postvoid residuals can be done, however we'll going to obtain renal ultrasound. 6. Hyperlipidemia Lipitor 40 mg will be started his previous LDL was 78 however non-Q in view of an STEMI statins would be initiated next 7. Mild protein calorie malnutrition 8. CODE STATUS DO NOT RESUSCITATE 9. Diabetes mellitus type 2, hemoglobin A1c will be obtained 10. Borderline anemia of chronic disease, hemoglobin ranges between 11.7-12.4 11. CAD with prior CABG in the past, stent to the proximal RCA 2007 with subsequent 2 vessel bypass grafting S BG 2 OM, SVG to PDA 2008 12. COPD with chronic dyspnea on exertion, on prednisone 5 mg daily Discharge plan: Return home with daughter, possibly under hospice care Impression and plan of care have been directed as dictated by the signing physician. Maddie Wood nurse practitioner acting as scribe for signing physician.
[2018-03-24] MEDS: MORPHINE SULFATE ER 15 MG TABLET PO SCH (16:17)
[2018-03-24 16:45] LABS: Glucose,Whole Blood 179 mg/dL (75-99)
[2018-03-24 20:14] LABS: Glucose,Whole Blood 182 mg/dL (75-99)
[2018-03-24] MEDS: MELATONIN 3 MG TABLET PO SCH (21:10)
[2018-03-24 21:31] LABS: Hemoglobin A1C 5.9 % (4.0-6.0)
[2018-03-25 06:04] LABS: Glucose,Whole Blood 119 mg/dL (75-99)
[2018-03-25] MEDS: LEVOTHYROXINE 25 MCG TAB PO SCH (06:05)
[2018-03-25] MEDS: ISOSORBIDE MONONITRATE ER 60 MG TAB.ER.24H PO SCH (09:16)
[2018-03-25] MEDS: ASPIRIN 81 MG PO SCH (09:16)
[2018-03-25] MEDS: MORPHINE SULFATE ER 15 MG TABLET PO SCH (09:16)
[2018-03-25] MEDS: CLOPIDOGREL 75 MG TAB PO SCH (09:17)
[2018-03-25] MEDS: METOPROLOL TARTRATE 25 MG TAB PO SCH (09:17)
[2018-03-25] MEDS: ALLOPURINOL 300 MG TAB PO SCH (09:17)
[2018-03-25] MEDS: FUROSEMIDE 20 MG TAB PO SCH (09:17)
[2018-03-25] MEDS: HEPARIN SODIUM,PORCINE 5,000 UNIT/ML 1 ML VIAL SQ SCH (09:17)
[2018-03-25] MEDS: predniSONE 5 MG TAB PO SCH (09:17)
[2018-03-25] MEDS: ATORVASTATIN 40 MG TAB PO SCH (09:17)
[2018-03-25] MEDS: CHOLECALCIFEROL 1,000 UNIT TAB PO SCH (09:17)
[2018-03-25 12:00] LABS: Glucose,Whole Blood 181 mg/dL (75-99)
[2018-03-25 14:24] VITALS: BP 93/51; PULSE 63; RESP 18; TEMP 97.6
--- NOTE | 2018-03-25 17:02 | PN ---
PROGRESS NOTE Mr. Nesbitt is more comfortable. He had a brief episode of chest pain, had a much better night. Denies chest pain. He has CAD with previous bypass surgery, also advanced renal failure and [id number] ID, but a decision has been made by patient and family to pursue medical therapy. I think we are doing better in this regard. Vitals are stable. JVD is 1 cm. S1-S2 heard normally. Short systolic murmur noted. Lungs reveal fairly decent air entry. Abdomen and lower extremity exam unchanged. Plan is to continue current medications and keep the patient comfortable. MMODL / IJN: [id number] /
--- NOTE | 2018-03-25 18:59 | PN ---
PROGRESS NOTE Patient is seen for followup for acute kidney injury. He is currently stable. Renal function has been improving. We do not have labs from today. Serum creatinine was 2.43 yesterday, which was slightly up from 2.3; however, creatinine had peaked at 3.1. On examination this morning, blood pressure was 105/51, heart rate 76 per minute. Patient is afebrile. EXAMINATION OF THE HEART: S1, S2. EXAMINATION OF LUNGS: Bilateral breath sounds are heard. ABDOMEN: Soft, non-tender. Examination of lower extremities shows no evidence of edema. HAT MAKER exam is grossly intact. Labs are not available from today. Serum creatinine was 2.43 yesterday and potassium 4.2, sodium 140. ASSESSMENT: 1. Acute kidney injury, improved since admission. Serum creatinine mildly elevated related to diuresis. 2. Chronic kidney disease, stage IV, secondary to nephrosclerosis. Baseline creatinine about 2.2. 3. Metabolic acidosis secondary to renal failure. 4. Coronary artery disease, status post coronary artery bypass surgery. 5. Hypertension with blood pressures slightly on the lower side. Lopressor was decreased yesterday. PLAN: Patient can be discharged. Follow up as outpatient in about 1-2 weeks. MMODL / IJN: [id number] /
--- NOTE | 2018-03-25 19:26 | P.DS ---
Providers Date of admission: 03/21/18 09:40 Attending physician: Alpesh Gonzalez MD Consults: 03/20/18 09:15 Consult Physician Urgent Consulting Provider: Michelle Knutson Consult Reason/Comments: chest pain Do you want consulting provider notified?: Yes 03/20/18 09:40 Consult Physician Urgent Consulting Provider: Shanta Boland Consult Reason/Comments: Acute on chronic renal sufficiency Do you want consulting provider notified?: Yes Primary care physician: Alpesh Gonzalez MD Hospital Course: This is an 87 year all gentleman patient of Dr. Gonzalez, and Dr. Zenia Correa S/P Kunal new to the practice. She has underlying history of CAD, diabetes mellitus , hypertension, admitted emergency room secondary to significant chest pain that woke the patient up and start night he suffered with this chest pain, he took 5 tablets of sublingual nitroglycerin without any relief. Patient was subsequently seen in emergency room. Secondary to chest pressure without any radiation, however this is intense according patient, distant not accompanied by any cough no shortness of breath, no edema, no hemoptysis. Patient denies any fever or chills, she he was last admitted from her facility 02/10/2018, He has underlying history of CABG in 2007 and a cardiac stent in 2006, CK D stage III, atrial fibrillation, hypothyroidism, severe hearing loss. He was last here admitted 02/13/2018 for chest pain, for which she was started on as a bite 60 mg daily, Nitrostat when necessary, aspirin daily, and Lopressor 25 mg twice a day. Glucotrol 5 mg twice a day has been discontinued In the emergency room EKG shows nonspecific ST-T wave changes, normal sinus rhythm. Patient has a creatinine of 3.19, for which cardiac catheterization or imaging studies 40 heart cannot be pursued without any consequence of the kidneys, admitting creatinine are at 3.19, nightly of 64. His troponin on entry was 0.5, second set of troponin 2.35 cardiology has been consulted, patient's chest pain free with Nitropaste, IV heparin infusing O2 by nasal cannula 03/21: Patient denies having any chest pain or palpitations. He feels like his heart rate is on the slow side now for the last couple hours. He states he's feeling better from yesterday. He does complain of low shortness of breath with activity. IV fluids to be changed to saline lock. Cardiology has ordered echocardiogram, increased beta jadyn continue Nitropaste and IV heparin. Aspirin changed 81 mg. Plan is to maximize medical therapy. 03/22: According to the patient's nurse, patient had a rough night with chest pain throughout the night. Cardiology is kept him on heparin drip and added in morphine. He is also on Imdur 60 mg daily which does not seem to be helping. Plan is to monitor another 24 hours. 03/23: Patient continues to have chest pain and cardiology has increased Imdur 60 mg twice daily, heparin drip discontinued and switched to subcutaneous heparin. Patient is continued on morphine IV. Patient does get relief from his chest pain shortly after imdur is given. TSH is 1.550. 03/24: Patient states he is chest pain-free at this time and is comfortable but also states he has had continued episodes of chest pain there initially improved with Imdur but returns. Cardiology has had a conversation with patient 's daughter to consider hospice care. Daughter will speak to her siblings and make a final decision. If patient chooses hospice, we'll plan for referral in the morning and discharge him home tomorrow. In the meantime, patient will be started on morphine extended release daily. 03/25, the paitent has bee chest pain free x 24 hours and has no sideeffects to opiates at this time, discussed with patient and daughter alyssa will the current plan to add morphine to regimen, they are strongly considering outpatient hospice program and is agreable with maintaining the current regimen including long acting nitrates/morphine. # 7 tabs given of morphine er with MAPS reviewed and opiate talk made with both daughter and patient along with caution adviced related to its use PCP to see in less than 1 wk. with the holiday schedule they will stretch this opiate to take prn till ffup visit. FINAL DIAGNOSIS 1. Acute non-STEMI presenting with elevated troponin WITH UNSTABLE ANGINA SYMTPOMS, nonspecific EKG changes, symptoms not relieved with nitroglycerin, and long acting nitrates. Patient is currently on IV heparin, aspirin, beta blockers, oxygen consult was made with cardiology and nephrology. No plan for heart catheterization. Plan for medical management only. Continue aspirin 81 mg daily, atorvastatin 40 mg daily, Plavix 75 mg daily, heparin subcu, Imdur 60 mg twice daily, Lopressor 25 mg twice daily, morphine sulfate IV 1 mg every 6 hours as needed, nitroglycerin as needed. MS Contin ER 15 mg daily added discussed morphine for anginal pain control and is very helpful. MAP reviewed, no coexisting opiate noted x 2 yrs. opiate talk made, consent obtained from both patient and daughter. anticipated to get into outpatient hospice program, 2. CK D stage IV, nephrology consult appreciated 3. Hypothyroidism on levothyroxine 25 g daily 4. Gout on allopurinol 300 mg every 48 hours 5. BPH, unknown whether patient has no intact pathologies, postvoid residuals can be done, however we'll going to obtain renal ultrasound. 6. Hyperlipidemia Lipitor 40 mg will be started his previous LDL was 78 however non-Q in view of an STEMI statins would be initiated next 7. Mild protein calorie malnutrition 8. CODE STATUS DO NOT RESUSCITATE 9. Diabetes mellitus type 2, hemoglobin A1c will be obtained 10. Borderline anemia of chronic disease, hemoglobin ranges between 11.7-12.4 11. CAD with prior CABG in the past, stent to the proximal RCA 2007 with subsequent 2 vessel bypass grafting S BG 2 OM, SVG to PDA 2008 12. COPD with chronic dyspnea on exertion, on prednisone 5 mg daily Discharge plan: Return home with daughter, possibly under hospice care Impression and plan of care have been directed as dictated by the signing physician. Maddie Wood nurse practitioner acting as scribe for signing physician. Patient Condition at Discharge: Stable Plan - Discharge Summary Discharge Rx Participant: Yes New Discharge Prescriptions: New Aspirin 81 mg PO DAILY chew Atorvastatin [Lipitor] 40 mg PO DAILY #30 tab Isosorbide Mononitrate ER [Imdur] 60 mg PO BID tab.er.24h Melatonin 6 mg PO HS tablet Morphine Sulfate ER [Ms Contin] 15 mg PO DAILY #7 tablet Continue predniSONE 5 mg PO DAILY Clopidogrel [Plavix] 75 mg PO DAILY Levothyroxine Sodium [Synthroid] 25 mcg PO DAILY Furosemide [Lasix] 20 mg PO Q48H Allopurinol [Zyloprim] 300 mg PO Q48H Cholecalciferol (Vitamin D3) [Vitamin D3] 2,000 unit PO DAILY Isosorbide Mononitrate ER [Imdur] 60 mg PO DAILY #90 tab.er.24h Metoprolol Tartrate [Lopressor] 25 mg PO BID #180 tab Nitroglycerin Sl Tabs [Nitrostat] 0.4 mg SUBLINGUAL Q5M PRN #25 tab PRN Reason: Chest Pain Discharge Medication List Allopurinol [Zyloprim] 300 mg PO Q48H 02/10/18 [History] Cholecalciferol (Vitamin D3) [Vitamin D3] 2,000 unit PO DAILY 02/10/18 [History] Clopidogrel [Plavix] 75 mg PO DAILY 02/10/18 [History] Furosemide [Lasix] 20 mg PO Q48H 02/10/18 [History] Levothyroxine Sodium [Synthroid] 25 mcg PO DAILY 02/10/18 [History] predniSONE 5 mg PO DAILY 02/10/18 [History] Isosorbide Mononitrate ER [Imdur] 60 mg PO DAILY #90 tab.er.24h 02/13/18 [Rx] Metoprolol Tartrate [Lopressor] 25 mg PO BID #180 tab 02/13/18 [Rx] Nitroglycerin Sl Tabs [Nitrostat] 0.4 mg SUBLINGUAL Q5M PRN #25 tab 02/13/18 [Rx ] Aspirin 81 mg PO DAILY chew 03/25/18 [Rx] Atorvastatin [Lipitor] 40 mg PO DAILY #30 tab 03/25/18 [Rx] Isosorbide Mononitrate ER [Imdur] 60 mg PO BID tab.er.24h 03/25/18 [Rx] Melatonin 6 mg PO HS tablet 03/25/18 [Rx] Morphine Sulfate ER [Ms Contin] 15 mg PO DAILY #7 tablet 03/25/18 [Rx] Follow up Appointment(s)/Referral(s): Alpesh Gonzalez MD [Primary Care Provider] - 3 Days (Office closed at this time, please call for follow up appointment next week.) Michelle Knutson MD [STAFF PHYSICIAN] - 2 Weeks () Patient Instructions/Handouts: Chest Pain (DC), Heart Healthy Diet (DC) Discharge Disposition: HOME WITH HOME HEALTH SERVICES
== END 2018-03-25 16:05 | disposition home health service (06) | DRG 281 ==
LOC: EC 06:56 → 3SCARD 09:41 → OBSVTOIN 03-21 09:40
PROVIDERS: ADMIT Internal Medicine; ATTEND Internal Medicine
DX: I21.4 Non-ST elevation (NSTEMI) myocardial infarction (principal); E44.1 Mild protein-calorie malnutrition; E87.2 Acidosis; N17.9 Acute kidney failure, unspecified; N18.4 Chronic kidney disease, stage 4 (severe); J44.9 Chronic obstructive pulmonary disease, unspecified; E11.22 Type 2 diabetes mellitus with diabetic chronic kidney disease; D63.8 Anemia in other chronic diseases classified elsewhere; I48.0 Paroxysmal atrial fibrillation; I25.10 Atherosclerotic heart disease of native coronary artery without angina pectoris; E03.9 Hypothyroidism, unspecified; E78.5 Hyperlipidemia, unspecified; I12.9 Hypertensive chronic kidney disease with stage 1 through stage 4 chronic kidney disease, or unspecified chronic kidney disease; I25.2 Old myocardial infarction; M10.9 Gout, unspecified; N40.0 Benign prostatic hyperplasia without lower urinary tract symptoms; K44.9 Diaphragmatic hernia without obstruction or gangrene; K64.9 Unspecified hemorrhoids; R01.1 Cardiac murmur, unspecified; H91.93 Unspecified hearing loss, bilateral; Z66 Do not resuscitate; Z79.02 Long term (current) use of antithrombotics/antiplatelets; Z79.82 Long term (current) use of aspirin; Z79.890 Hormone replacement therapy; Z79.899 Other long term (current) drug therapy; Z79.52 Long term (current) use of systemic steroids; Z68.21 Body mass index [BMI] 21.0-21.9, adult; Z87.891 Personal history of nicotine dependence; Z91.041 Radiographic dye allergy status; Z91.013 Allergy to seafood; Z95.5 Presence of coronary angioplasty implant and graft; Z95.1 Presence of aortocoronary bypass graft; Z86.010 Personal history of colon polyps; Z90.49 Acquired absence of other specified parts of digestive tract; Z98.42 Cataract extraction status, left eye; Z98.41 Cataract extraction status, right eye; Z96.1 Presence of intraocular lens; Z80.1 Family history of malignant neoplasm of trachea, bronchus and lung; Z80.7 Family history of other malignant neoplasms of lymphoid, hematopoietic and related tissues
CPT/HCPCS: 36415; 71046; 76770; 80048; 80053; 80061; 82550; 82553; 83036; 83735; 83880; 84484; 85025; 85610; 85730; 93306; 96365; 96366; 96376; 99285